=== PATIENT | male | born 1975 | race Caucasian/White ===

== ENCOUNTER 2017-11-04 00:34 | Inpatient (IN) | payer OTHER ==
[2017-11-04 02:04] LABS: HEMATOCRIT 40.6 % (42.0-52.0); HEMOGLOBIN 13.9 g/dl (13.5-17.5); MEAN CORPUSCULAR HEMOGLOBIN 32.3 pg (27.0-33.0); MEAN CORPUSCULAR HGB CONC 34.2 g/dl (32.0-36.5); MEAN CORPUSCULAR VOLUME 94.4 fl (80.0-96.0); PLATELET COUNT, AUTOMATED 447 10^3/uL (150-450)
[2017-11-04 02:39] LABS: ALBUMIN 2.9 GM/DL (3.2-5.2); ALKALINE PHOSPHATASE 70 U/L (45-117); ALT/SGPT 28 U/L (12-78); ANION GAP 10 MEQ/L (8-16); AST/SGOT 16 U/L (7-37); BILIRUBIN,DIRECT < 0.1 MG/DL (0.0-0.2); BILIRUBIN,TOTAL 0.1 MG/DL (0.2-1.0); BLOOD UREA NITROGEN 8 MG/DL (7-18); CALCIUM LEVEL 8.1 MG/DL (8.5-10.1); CARBON DIOXIDE LEVEL 26 MEQ/L (21-32); CHLORIDE LEVEL 103 MEQ/L (98-107); CREATININE FOR GFR 0.64 MG/DL (0.70-1.30); ETHYL ALCOHOL (ETHANOL) 0.397 % (0.000-0.010); GLOMERULAR FILTRATION RATE > 60.0 (>60); GLUCOSE, FASTING 144 MG/DL (70-100); SALICYLATE LEVEL 3.5 MG/DL (5.0-30.0); SODIUM LEVEL 139 MEQ/L (136-145); THYROID STIMULATING HORMONE 0.684 uIU/ML (0.358-3.740); TOTAL PROTEIN 7.7 GM/DL (6.4-8.2)
[2017-11-04 02:58] LABS: ACETAMINOPHEN LEVEL < 2.0 UG/ML (10.0-30.0)
[2017-11-04] MEDS: OXAZEPAM 15 MG CAP PO (03:24)
[2017-11-04 03:26] LABS: AMPHETAMINES LEVEL URINE NEGATIVE (NEGATIVE); BARBITURATES URINE NEGATIVE (NEGATIVE); BENZODIAZEPINES URINE NEGATIVE (NEGATIVE); CANNABINOIDS URINE NEGATIVE (NEGATIVE); COCAINE METABOLITE URINE NEGATIVE (NEGATIVE); METHADONE URINE NEGATIVE (NEGATIVE); OPIATES URINE NEGATIVE (NEGATIVE); PHENCYCLIDINE URINE NEGATIVE (NEGATIVE)
[2017-11-04 08:21] LABS: ERYTHROCYTE SEDIMENTATION RATE 67 mm/hr (0-15)
[2017-11-04] MEDS ORDERED: ONDANSETRON 4MG/2ML VIAL (J2405) IV (08:45)
[2017-11-04 09:51] LABS: INR 0.98; PROTHROMBIN TIME 13.1 SECONDS (12.4-14.5)
[2017-11-04 10:10] LABS: ESTIMATED AVERAGE GLUCOSE 140 MG/DL (60-110); HEMOGLOBIN A1c 6.5 %
[2017-11-04] MEDS: cefTRIAXone SOD 2 GM in D5W MINI-BAG PLUS 50 ML IV (10:45)
[2017-11-04] MEDS: VANCOMYCIN HCL 1,000 MG, VIAL MATE ADAPTER 1 EACH in D5W 250 ML IV ×3 (11:24→20:46)
[2017-11-04] MEDS ORDERED: GLUCAGON FOR INJ 1 MG VIAL (J1610) SC (11:30)
[2017-11-04] MEDS ORDERED: GLUCOSE 4 GM CHEW TABLET PO (11:30)
[2017-11-04] MEDS ORDERED: DEXTROSE 50% 50 ML SYRINGE IV (11:30)
[2017-11-04 12:14] LABS: BEDSIDE GLUCOSE 242 MG/DL (70-105)
[2017-11-04] MEDS: FOLIC ACID 1 MG TAB PO (12:42)
[2017-11-04] MEDS: OXAZEPAM 10 MG CAP PO ×3 (12:42→20:46)
[2017-11-04] MEDS: THIAMINE 100 MG TAB PO (12:42)
[2017-11-04] MEDS: HumaLOG INSULIN (NovoLOG) PER UNIT SC ×2 (12:57→17:24)
[2017-11-04] MEDS: PIPERACILLIN/TAZOBACTAM SOD 3.375 GM in D5W MINI-BAG PLUS 50 ML IV ×2 (13:06→18:38)
[2017-11-04] MEDS: SENOKOT S TAB PO ×2 (13:19→20:47)
[2017-11-04] MEDS: ENOXAPARIN 40 MG/0.4 ML SYRINGE (J1650) SC (13:20)
[2017-11-04] MEDS: NICOTINE 14 MG/24 HR TRANSDERMAL TD (13:20)
[2017-11-04] MEDS: MULTIVITAMINS/MINERALS THERAP 1 TAB PO (13:20)
[2017-11-04] MEDS ORDERED: diphenhydrAMINE INJ 50MG/ML VIAL (J1200) IM (14:15)
[2017-11-04] MEDS: ACETAMINOPHEN 500 MG TAB PO (15:48)
[2017-11-04 16:58] LABS: BEDSIDE GLUCOSE 181 MG/DL (70-105)
[2017-11-04 20:07] LABS: BEDSIDE GLUCOSE 186 MG/DL (70-105)
[2017-11-04] MEDS: LEVEMIR (INSULIN DETEMIR) 1 UNITS/0.01ML SC (20:47)
[2017-11-05] MEDS: PIPERACILLIN/TAZOBACTAM SOD 3.375 GM in D5W MINI-BAG PLUS 50 ML IV ×4 (00:36→20:14)
[2017-11-05] MEDS: VANCOMYCIN HCL 1,000 MG, VIAL MATE ADAPTER 1 EACH in D5W 250 ML IV ×4 (04:53→21:21)
[2017-11-05 06:24] LABS: BEDSIDE GLUCOSE 137 MG/DL (70-105)
[2017-11-05] MEDS: HumaLOG INSULIN (NovoLOG) PER UNIT SC ×3 (07:30→17:30)
[2017-11-05 08:00] LABS: BASO # 0.1 10^3/uL (0.0-0.2); BASO % 0.6 % (0.0-1.0); EOS # 0.1 10^3/uL (0.0-0.50); EOS % 1.5 % (0.0-3.0); HEMATOCRIT 38.5 % (42.0-52.0); IMMATURE GRANULOCYTE % 0.3 % (0-3.0); LYMPH # 1.8 10^3/uL (1.5-4.5); LYMPH % 19.8 % (24.0-44.0); MEAN CORPUSCULAR HEMOGLOBIN 32.4 pg (27.0-33.0); MEAN CORPUSCULAR HGB CONC 33.8 g/dl (32.0-36.5); MONO # 0.9 10^3/uL (0.0-0.8); MONO % 9.4 % (0.0-5.0); NEUTROPHILS # 6.2 10^3/uL (1.8-7.7); NEUTROPHILS % 68.4 % (36.0-66.0); PLATELET COUNT, AUTOMATED 433 10^3/uL (150-450); RED BLOOD COUNT 4.01 10^6/uL (4.30-6.10); WHITE BLOOD COUNT 9.1 10^3/uL (4.0-10.0)
[2017-11-05 08:21] LABS: ANION GAP 7 MEQ/L (8-16); BLOOD UREA NITROGEN 9 MG/DL (7-18); CALCIUM LEVEL 8.4 MG/DL (8.5-10.1); CARBON DIOXIDE LEVEL 29 MEQ/L (21-32); CHLORIDE LEVEL 101 MEQ/L (98-107); CREATININE FOR GFR 0.74 MG/DL (0.70-1.30); GLOMERULAR FILTRATION RATE > 60.0 (>60); GLUCOSE, FASTING 136 MG/DL (70-100); POTASSIUM SERUM 3.5 MEQ/L (3.5-5.1); SODIUM LEVEL 137 MEQ/L (136-145)
[2017-11-05] MEDS: THIAMINE 100 MG TAB PO (09:02)
[2017-11-05] MEDS: OXAZEPAM 10 MG CAP PO ×3 (09:02→21:21)
[2017-11-05] MEDS: NICOTINE 14 MG/24 HR TRANSDERMAL TD (09:03)
[2017-11-05] MEDS: MULTIVITAMINS/MINERALS THERAP 1 TAB PO (09:03)
[2017-11-05] MEDS: SENOKOT S TAB PO ×2 (09:03→20:17)
[2017-11-05] MEDS: FOLIC ACID 1 MG TAB PO (09:03)
[2017-11-05 11:43] LABS: BEDSIDE GLUCOSE 179 MG/DL (70-105)
[2017-11-05 11:54] LABS: VANCOMYCIN LEVEL TROUGH 8.7 UG/ML (10.0-20.0)
[2017-11-05] MEDS: BUPIVACAINE HCL 0.5% 10 ML VIAL As Ordered (18:05)
[2017-11-05] MEDS: LIDOCAINE 1% MDV 20ML VIAL As Ordered (18:05)
[2017-11-05] MEDS ORDERED: MIDAZOLAM INJ 2 MG/2 ML VIAL (J2250) As Ordered (18:06)
[2017-11-05] MEDS ORDERED: fentaNYL 100 MCG/2 ML INJECTION (J3010) As Ordered ×2 (18:06→18:58)
[2017-11-05] MEDS ORDERED: PROPOFOL 200 MG/20 ML VIAL As Ordered ×3 (18:06→18:07)
[2017-11-05] MEDS ORDERED: PHENYLephrine HCL 500 MCG/5 ML (100MCG/ML) SYRINGE (J2370) As Ordered (18:21)
[2017-11-05] MEDS: LR 1,000 ML IV (18:49)
[2017-11-05] MEDS ORDERED: ONDANSETRON 4MG/2ML VIAL (J2405) As Ordered (18:58)
[2017-11-05] MEDS ORDERED: MEPERIDINE INJ 25 MG/ML VIAL (J2175) As Ordered (18:58)
[2017-11-05] MEDS ORDERED: PERCOCET 5MG/325MG TAB As Ordered ×2 (18:58→19:22)
[2017-11-05 19:01] LABS: BEDSIDE GLUCOSE 151 MG/DL (70-105)
[2017-11-05] MEDS: MEPERIDINE INJ 25 MG/ML VIAL (J2175) IV ×2 (19:05→19:10)
[2017-11-05] MEDS: fentaNYL 100 MCG/2 ML INJECTION (J3010) IV ×4 (19:05→19:20)
[2017-11-05] MEDS: ONDANSETRON 4MG/2ML VIAL (J2405) IV (19:05)
[2017-11-05] MEDS: PERCOCET 5MG/325MG TAB PO ×2 (19:05→19:35)
[2017-11-05] MEDS ORDERED: MORPHINE 4 MG/ML 1ML VIAL/SYRINGE (J2270) IV (19:15)
[2017-11-05] MEDS ORDERED: NALBUPHINE HCL 10 MG/ML AMP (J2300) IV (19:15)
[2017-11-05] MEDS ORDERED: METOCLOPRAMIDE INJ 10MG/2ML VIAL (J2765) IV (19:15)
[2017-11-05] MEDS ORDERED: NORCO, ANEXSIA 5/325MG TABLET (HYDROcodone/ACETAMINOPHEN) PO (19:15)
[2017-11-05] MEDS ORDERED: PROMETHAZINE INJ 25 MG/ML VIAL (J2550) IV (19:15)
[2017-11-05] MEDS ORDERED: HYDROMORPHONE HCL 0.5 MG/ 0.5 ML SYRINGE (J1170 PER 1) IV (19:15)
[2017-11-05] MEDS ORDERED: KETOROLAC 30 MG/ML VIAL (J1885) IV (19:15)
[2017-11-05] MEDS ORDERED: MORPHINE 10 MG/ML 1ML VIAL (J2270) IV (19:15)
[2017-11-05] MEDS ORDERED: diphenhydrAMINE INJ 50MG/ML VIAL (J1200) IV (19:15)
[2017-11-05] MEDS: LEVEMIR (INSULIN DETEMIR) 1 UNITS/0.01ML SC (21:21)
[2017-11-05] MEDS: VANCOMYCIN HCL 750 MG, VIAL MATE ADAPTER 1 EACH in D5W 250 ML IV (23:41)
[2017-11-06] MEDS: PIPERACILLIN/TAZOBACTAM SOD 3.375 GM in D5W MINI-BAG PLUS 50 ML IV ×4 (01:51→19:00)
[2017-11-06] MEDS: VANCOMYCIN HCL 1,000 MG, VIAL MATE ADAPTER 1 EACH in D5W 250 ML IV ×3 (04:02→20:22)
[2017-11-06] MEDS: VANCOMYCIN HCL 750 MG, VIAL MATE ADAPTER 1 EACH in D5W 250 ML IV (06:09)
[2017-11-06 07:09] LABS: HEMATOCRIT 34.6 % (42.0-52.0); HEMOGLOBIN 11.4 g/dl (13.5-17.5); MEAN CORPUSCULAR HGB CONC 32.9 g/dl (32.0-36.5); MEAN CORPUSCULAR VOLUME 97.2 fl (80.0-96.0); PLATELET COUNT, AUTOMATED 380 10^3/uL (150-450); RED BLOOD COUNT 3.56 10^6/uL (4.30-6.10); WHITE BLOOD COUNT 7.6 10^3/uL (4.0-10.0)
[2017-11-06 07:19] LABS: ANION GAP 5 MEQ/L (8-16); BLOOD UREA NITROGEN 5 MG/DL (7-18); CALCIUM LEVEL 8.4 MG/DL (8.5-10.1); CARBON DIOXIDE LEVEL 32 MEQ/L (21-32); CHLORIDE LEVEL 102 MEQ/L (98-107); CREATININE FOR GFR 0.69 MG/DL (0.70-1.30); GLOMERULAR FILTRATION RATE > 60.0 (>60); GLUCOSE, FASTING 149 MG/DL (70-100); POTASSIUM SERUM 3.9 MEQ/L (3.5-5.1); SODIUM LEVEL 139 MEQ/L (136-145)
[2017-11-06] MEDS: SENOKOT S TAB PO ×2 (09:00→20:22)
[2017-11-06] MEDS: HumaLOG INSULIN (NovoLOG) PER UNIT SC ×3 (09:43→17:02)
[2017-11-06] MEDS: ENOXAPARIN 40 MG/0.4 ML SYRINGE (J1650) SC (09:44)
[2017-11-06] MEDS: FOLIC ACID 1 MG TAB PO (09:44)
[2017-11-06] MEDS: THIAMINE 100 MG TAB PO (09:44)
[2017-11-06] MEDS: OXAZEPAM 10 MG CAP PO ×3 (09:44→20:22)
[2017-11-06] MEDS: NICOTINE 14 MG/24 HR TRANSDERMAL TD (09:44)
[2017-11-06] MEDS: MULTIVITAMINS/MINERALS THERAP 1 TAB PO (09:45)
[2017-11-06] MEDS: SANTYL OINT 30GM TOP (09:45)
[2017-11-06] MEDS: PERCOCET 5MG/325MG TAB PO ×3 (09:46→21:08)
[2017-11-06 11:01] LABS: C REACTIVE PROTEIN QUANTITATIV 4.93 MG/DL (0.00-0.30)
[2017-11-06 11:26] LABS: VANCOMYCIN LEVEL TROUGH 22.2 UG/ML (10.0-20.0)
[2017-11-06 11:35] LABS: BEDSIDE GLUCOSE 119 MG/DL (70-105)
[2017-11-06] MEDS: VANCOMYCIN HCL 500 MG in D5W MINI-BAG PLUS 100 ML IV ×2 (15:00→21:52)
[2017-11-06 16:37] LABS: BEDSIDE GLUCOSE 233 MG/DL (70-105)
[2017-11-06] MEDS: NICOTINE POLACRILEX 2 MG GUM PO ×2 (17:58→21:52)
[2017-11-06 19:39] LABS: BEDSIDE GLUCOSE 118 MG/DL (70-105)
[2017-11-06] MEDS: LEVEMIR (INSULIN DETEMIR) 1 UNITS/0.01ML SC (21:03)
[2017-11-07] MEDS: PIPERACILLIN/TAZOBACTAM SOD 3.375 GM in D5W MINI-BAG PLUS 50 ML IV ×4 (00:39→23:59)
[2017-11-07] MEDS: VANCOMYCIN HCL 1,000 MG, VIAL MATE ADAPTER 1 EACH in D5W 250 ML IV ×3 (02:35→20:25)
[2017-11-07] MEDS: VANCOMYCIN HCL 500 MG in D5W MINI-BAG PLUS 100 ML IV ×3 (04:25→22:42)
[2017-11-07] MEDS: PERCOCET 5MG/325MG TAB PO ×4 (06:29→20:26)
[2017-11-07] MEDS: NICOTINE POLACRILEX 2 MG GUM PO ×4 (06:29→20:27)
[2017-11-07 06:36] LABS: HEMATOCRIT 36.5 % (42.0-52.0); HEMOGLOBIN 12.1 g/dl (13.5-17.5); MEAN CORPUSCULAR HGB CONC 33.2 g/dl (32.0-36.5); MEAN CORPUSCULAR VOLUME 96.6 fl (80.0-96.0); PLATELET COUNT, AUTOMATED 412 10^3/uL (150-450); RED BLOOD COUNT 3.78 10^6/uL (4.30-6.10); RED CELL DISTRIBUTION WIDTH 12.1 % (11.5-14.5); WHITE BLOOD COUNT 7.8 10^3/uL (4.0-10.0)
[2017-11-07 06:52] LABS: ANION GAP 4 MEQ/L (8-16); BLOOD UREA NITROGEN 8 MG/DL (7-18); CALCIUM LEVEL 8.7 MG/DL (8.5-10.1); CARBON DIOXIDE LEVEL 31 MEQ/L (21-32); CHLORIDE LEVEL 104 MEQ/L (98-107); CREATININE FOR GFR 0.84 MG/DL (0.70-1.30); GLOMERULAR FILTRATION RATE > 60.0 (>60); GLUCOSE, FASTING 158 MG/DL (70-100); POTASSIUM SERUM 4.3 MEQ/L (3.5-5.1); SODIUM LEVEL 139 MEQ/L (136-145)
[2017-11-07] MEDS: SENOKOT S TAB PO ×2 (07:52→20:26)
[2017-11-07] MEDS: OXAZEPAM 10 MG CAP PO ×3 (07:52→20:26)
[2017-11-07] MEDS: ENOXAPARIN 40 MG/0.4 ML SYRINGE (J1650) SC (07:52)
[2017-11-07] MEDS: HumaLOG INSULIN (NovoLOG) PER UNIT SC ×4 (07:52→21:00)
[2017-11-07] MEDS: THIAMINE 100 MG TAB PO (07:53)
[2017-11-07] MEDS: FOLIC ACID 1 MG TAB PO (07:53)
[2017-11-07] MEDS: MULTIVITAMINS/MINERALS THERAP 1 TAB PO (07:53)
[2017-11-07] MEDS: ACETAMINOPHEN 500 MG TAB PO (07:56)
[2017-11-07] MEDS: SANTYL OINT 30GM TOP (10:42)
[2017-11-07 11:41] LABS: BEDSIDE GLUCOSE 133 MG/DL (70-105)
[2017-11-07] MEDS: LORazepam 2 MG TAB PO (18:42)
[2017-11-07 20:00] LABS: VANCOMYCIN LEVEL TROUGH 18.4 UG/ML (10.0-20.0)
[2017-11-07 20:17] LABS: BEDSIDE GLUCOSE 163 MG/DL (70-105)
[2017-11-07 20:20] LABS: BEDSIDE GLUCOSE 192 MG/DL (70-105)
[2017-11-07] MEDS: LEVEMIR (INSULIN DETEMIR) 1 UNITS/0.01ML SC (20:26)
[2017-11-08] MEDS: NICOTINE POLACRILEX 2 MG GUM PO ×6 (00:17→21:52)
[2017-11-08] MEDS: PERCOCET 5MG/325MG TAB PO ×4 (00:17→21:51)
[2017-11-08] MEDS: VANCOMYCIN HCL 1,000 MG, VIAL MATE ADAPTER 1 EACH in D5W 250 ML IV ×2 (04:07→11:22)
[2017-11-08] MEDS: PIPERACILLIN/TAZOBACTAM SOD 3.375 GM in D5W MINI-BAG PLUS 50 ML IV ×4 (05:15→21:52)
[2017-11-08] MEDS: VANCOMYCIN HCL 500 MG in D5W MINI-BAG PLUS 100 ML IV ×2 (06:14→12:58)
[2017-11-08 07:21] LABS: HEMATOCRIT 38.7 % (42.0-52.0); HEMOGLOBIN 12.7 g/dl (13.5-17.5); MEAN CORPUSCULAR HEMOGLOBIN 31.8 pg (27.0-33.0); MEAN CORPUSCULAR HGB CONC 32.8 g/dl (32.0-36.5); PLATELET COUNT, AUTOMATED 437 10^3/uL (150-450); RED BLOOD COUNT 3.99 10^6/uL (4.30-6.10); RED CELL DISTRIBUTION WIDTH 12.1 % (11.5-14.5); WHITE BLOOD COUNT 9.1 10^3/uL (4.0-10.0)
[2017-11-08 07:44] LABS: ANION GAP 7 MEQ/L (8-16); BLOOD UREA NITROGEN 10 MG/DL (7-18); CALCIUM LEVEL 9.1 MG/DL (8.5-10.1); CARBON DIOXIDE LEVEL 27 MEQ/L (21-32); CHLORIDE LEVEL 103 MEQ/L (98-107); CREATININE FOR GFR 0.77 MG/DL (0.70-1.30); GLOMERULAR FILTRATION RATE > 60.0 (>60); GLUCOSE, FASTING 123 MG/DL (70-100); POTASSIUM SERUM 4.1 MEQ/L (3.5-5.1); SODIUM LEVEL 137 MEQ/L (136-145)
[2017-11-08] MEDS: THIAMINE 100 MG TAB PO (08:30)
[2017-11-08] MEDS: OXAZEPAM 10 MG CAP PO ×3 (08:30→21:51)
[2017-11-08] MEDS: ENOXAPARIN 40 MG/0.4 ML SYRINGE (J1650) SC (08:30)
[2017-11-08] MEDS: HumaLOG INSULIN (NovoLOG) PER UNIT SC ×4 (08:30→21:52)
[2017-11-08] MEDS: SENOKOT S TAB PO ×2 (08:30→21:51)
[2017-11-08] MEDS: FOLIC ACID 1 MG TAB PO (08:30)
[2017-11-08] MEDS: MULTIVITAMINS/MINERALS THERAP 1 TAB PO (08:31)
[2017-11-08] MEDS: SANTYL OINT 30GM TOP (08:31)
[2017-11-08 11:34] LABS: BEDSIDE GLUCOSE 179 MG/DL (70-105)
[2017-11-08 16:36] LABS: BEDSIDE GLUCOSE 176 MG/DL (70-105)
[2017-11-08 21:43] LABS: BEDSIDE GLUCOSE 198 MG/DL (70-105)
[2017-11-08] MEDS: LEVEMIR (INSULIN DETEMIR) 1 UNITS/0.01ML SC (21:52)
[2017-11-09] MEDS: NICOTINE POLACRILEX 2 MG GUM PO ×4 (04:15→22:11)
[2017-11-09] MEDS: PIPERACILLIN/TAZOBACTAM SOD 3.375 GM in D5W MINI-BAG PLUS 50 ML IV ×4 (04:15→22:04)
[2017-11-09] MEDS: PERCOCET 5MG/325MG TAB PO ×4 (04:15→22:03)
[2017-11-09 06:48] LABS: HEMATOCRIT 36.7 % (42.0-52.0); HEMOGLOBIN 12.4 g/dl (13.5-17.5); MEAN CORPUSCULAR HEMOGLOBIN 32.8 pg (27.0-33.0); MEAN CORPUSCULAR HGB CONC 33.8 g/dl (32.0-36.5); MEAN CORPUSCULAR VOLUME 97.1 fl (80.0-96.0); PLATELET COUNT, AUTOMATED 415 10^3/uL (150-450); RED BLOOD COUNT 3.78 10^6/uL (4.30-6.10); RED CELL DISTRIBUTION WIDTH 12.5 % (11.5-14.5); WHITE BLOOD COUNT 10.5 10^3/uL (4.0-10.0)
[2017-11-09 07:05] LABS: ANION GAP 4 MEQ/L (8-16); BLOOD UREA NITROGEN 14 MG/DL (7-18); C REACTIVE PROTEIN QUANTITATIV 1.67 MG/DL (0.00-0.30); CARBON DIOXIDE LEVEL 27 MEQ/L (21-32); CHLORIDE LEVEL 105 MEQ/L (98-107); CREATININE FOR GFR 0.77 MG/DL (0.70-1.30); GLOMERULAR FILTRATION RATE > 60.0 (>60); GLUCOSE, FASTING 95 MG/DL (70-100); SODIUM LEVEL 136 MEQ/L (136-145)
[2017-11-09] MEDS: HumaLOG INSULIN (NovoLOG) PER UNIT SC ×4 (07:22→21:00)
[2017-11-09] MEDS: OXAZEPAM 10 MG CAP PO ×2 (09:00→22:02)
[2017-11-09] MEDS: SENOKOT S TAB PO (09:00)
[2017-11-09] MEDS: FOLIC ACID 1 MG TAB PO (10:53)
[2017-11-09] MEDS: MULTIVITAMINS/MINERALS THERAP 1 TAB PO (10:53)
[2017-11-09] MEDS: THIAMINE 100 MG TAB PO (10:54)
[2017-11-09] MEDS: ENOXAPARIN 40 MG/0.4 ML SYRINGE (J1650) SC (10:57)
[2017-11-09] MEDS: SANTYL OINT 30GM TOP (10:58)
[2017-11-09 11:26] LABS: BEDSIDE GLUCOSE 153 MG/DL (70-105)
[2017-11-09 16:53] LABS: BEDSIDE GLUCOSE 231 MG/DL (70-105)
[2017-11-09 20:53] LABS: BEDSIDE GLUCOSE 145 MG/DL (70-105)
[2017-11-09] MEDS: LEVEMIR (INSULIN DETEMIR) 1 UNITS/0.01ML SC (22:03)
[2017-11-10] MEDS: PIPERACILLIN/TAZOBACTAM SOD 3.375 GM in D5W MINI-BAG PLUS 50 ML IV ×4 (04:57→21:07)
[2017-11-10 05:58] LABS: HEMATOCRIT 37.3 % (42.0-52.0); HEMOGLOBIN 12.3 g/dl (13.5-17.5); MEAN CORPUSCULAR HEMOGLOBIN 31.9 pg (27.0-33.0); MEAN CORPUSCULAR VOLUME 96.6 fl (80.0-96.0); PLATELET COUNT, AUTOMATED 437 10^3/uL (150-450); RED BLOOD COUNT 3.86 10^6/uL (4.30-6.10); RED CELL DISTRIBUTION WIDTH 12.3 % (11.5-14.5); WHITE BLOOD COUNT 9.3 10^3/uL (4.0-10.0)
[2017-11-10 06:20] LABS: ANION GAP 6 MEQ/L (8-16); BLOOD UREA NITROGEN 14 MG/DL (7-18); CALCIUM LEVEL 9.7 MG/DL (8.5-10.1); CARBON DIOXIDE LEVEL 28 MEQ/L (21-32); CHLORIDE LEVEL 105 MEQ/L (98-107); CREATININE FOR GFR 0.75 MG/DL (0.70-1.30); GLOMERULAR FILTRATION RATE > 60.0 (>60); GLUCOSE, FASTING 113 MG/DL (70-100); SODIUM LEVEL 139 MEQ/L (136-145)
[2017-11-10] MEDS: HumaLOG INSULIN (NovoLOG) PER UNIT SC ×4 (07:30→21:00)
[2017-11-10] MEDS ORDERED: LIDOCAINE 2% INJ 100 MG/5 ML SDV (FOR ANES.) As Ordered ×2 (07:51→07:53)
[2017-11-10] MEDS ORDERED: PROPOFOL 200 MG/20 ML VIAL As Ordered ×2 (07:51→08:43)
[2017-11-10] MEDS ORDERED: fentaNYL 100 MCG/2 ML INJECTION (J3010) As Ordered (07:51)
[2017-11-10] MEDS ORDERED: MIDAZOLAM INJ 2 MG/2 ML VIAL (J2250) As Ordered (07:51)
[2017-11-10] MEDS: LIDOCAINE 1% MDV 20ML VIAL As Ordered (08:50)
[2017-11-10] MEDS: BUPIVACAINE HCL 0.5% 10 ML VIAL As Ordered (08:50)
[2017-11-10] MEDS ORDERED: ONDANSETRON 4MG/2ML VIAL (J2405) As Ordered (09:22)
[2017-11-10] MEDS ORDERED: ZOSYN 3.375 GM VIAL (J2543) As Ordered (09:25)
[2017-11-10] MEDS: dexameTHASONE 4 MG/ML 1ML VIAL (J1100) As Ordered (09:26)
[2017-11-10] MEDS ORDERED: PERCOCET 5MG/325MG TAB As Ordered ×2 (09:59→10:20)
[2017-11-10] MEDS ORDERED: ONDANSETRON 4MG/2ML VIAL (J2405) IV (10:00)
[2017-11-10 10:03] LABS: BEDSIDE GLUCOSE 116 MG/DL (70-105)
[2017-11-10] MEDS: PERCOCET 5MG/325MG TAB PO ×6 (10:09→21:09)
[2017-11-10] MEDS: NICOTINE POLACRILEX 2 MG GUM PO ×3 (11:05→18:44)
[2017-11-10 11:46] LABS: BEDSIDE GLUCOSE 114 MG/DL (70-105)
[2017-11-10] MEDS: FOLIC ACID 1 MG TAB PO (12:19)
[2017-11-10] MEDS: SANTYL OINT 30GM TOP (12:19)
[2017-11-10] MEDS: THIAMINE 100 MG TAB PO (12:19)
[2017-11-10] MEDS: MULTIVITAMINS/MINERALS THERAP 1 TAB PO (12:19)
[2017-11-10] MEDS: LACTIC ACID 12% LOTION 225 GM BTL EXT (12:20)
[2017-11-10] MEDS ORDERED: OXAZEPAM 10 MG CAP As Ordered (15:58)
[2017-11-10] MEDS: OXAZEPAM 10 MG CAP PO (16:21)
[2017-11-10 17:11] LABS: BEDSIDE GLUCOSE 181 MG/DL (70-105)
[2017-11-10] MEDS: AQUAPHOR **100GM** OINT TOP ×2 (18:12→21:08)
[2017-11-10 20:27] LABS: BEDSIDE GLUCOSE 126 MG/DL (70-105)
[2017-11-10] MEDS: LEVEMIR (INSULIN DETEMIR) 1 UNITS/0.01ML SC (21:07)
[2017-11-11] MEDS: NICOTINE POLACRILEX 2 MG GUM PO ×3 (01:00→11:09)
[2017-11-11] MEDS: PERCOCET 5MG/325MG TAB PO ×3 (04:59→15:22)
[2017-11-11] MEDS: PIPERACILLIN/TAZOBACTAM SOD 3.375 GM in D5W MINI-BAG PLUS 50 ML IV (04:59)
[2017-11-11 06:53] LABS: HEMATOCRIT 34.5 % (42.0-52.0); HEMOGLOBIN 11.5 g/dl (13.5-17.5); MEAN CORPUSCULAR HEMOGLOBIN 32.4 pg (27.0-33.0); MEAN CORPUSCULAR HGB CONC 33.3 g/dl (32.0-36.5); MEAN CORPUSCULAR VOLUME 97.2 fl (80.0-96.0); PLATELET COUNT, AUTOMATED 393 10^3/uL (150-450); RED BLOOD COUNT 3.55 10^6/uL (4.30-6.10); RED CELL DISTRIBUTION WIDTH 12.6 % (11.5-14.5); WHITE BLOOD COUNT 9.3 10^3/uL (4.0-10.0)
[2017-11-11 07:07] LABS: ANION GAP 8 MEQ/L (8-16); BLOOD UREA NITROGEN 15 MG/DL (7-18); CALCIUM LEVEL 8.7 MG/DL (8.5-10.1); CARBON DIOXIDE LEVEL 27 MEQ/L (21-32); CHLORIDE LEVEL 103 MEQ/L (98-107); CREATININE FOR GFR 0.89 MG/DL (0.70-1.30); GLOMERULAR FILTRATION RATE > 60.0 (>60); GLUCOSE, FASTING 109 MG/DL (70-100); POTASSIUM SERUM 3.8 MEQ/L (3.5-5.1); SODIUM LEVEL 138 MEQ/L (136-145)
[2017-11-11] MEDS: HumaLOG INSULIN (NovoLOG) PER UNIT SC ×2 (08:07→12:28)
[2017-11-11] MEDS: THIAMINE 100 MG TAB PO (08:07)
[2017-11-11] MEDS: FOLIC ACID 1 MG TAB PO (08:07)
[2017-11-11] MEDS: MULTIVITAMINS/MINERALS THERAP 1 TAB PO (08:07)
[2017-11-11] MEDS: AUGMENTIN 875 MG TAB PO ×2 (08:07→15:21)
[2017-11-11] MEDS: LACTIC ACID 12% LOTION 225 GM BTL EXT (08:08)
[2017-11-11] MEDS: ENOXAPARIN 40 MG/0.4 ML SYRINGE (J1650) SC (08:08)
[2017-11-11] MEDS: AQUAPHOR **100GM** OINT TOP (08:08)
[2017-11-11] MEDS: SANTYL OINT 30GM TOP (08:09)
[2017-11-11 08:34] LABS: C REACTIVE PROTEIN QUANTITATIV 1.37 MG/DL (0.00-0.30)
[2017-11-11 11:55] LABS: BEDSIDE GLUCOSE 172 MG/DL (70-105)
== END 2017-11-11 15:30 | disposition home or self-care (01) | DRG 314 ==
LOC: M ED 00:34 → M ED INP 08:44 → M MS5PR 14:44
PROC: 0Y6P0Z0 Detachment at Right 1st Toe, Complete, Open Approach (ICD-10-PCS; principal; 2017-11-05 16:42)
PROC: 0JDR0ZZ Extraction of Left Foot Subcutaneous Tissue and Fascia, Open Approach (ICD-10-PCS; 2017-11-05 16:42)
PROC: 0HBMXZZ Excision of Right Foot Skin, External Approach (ICD-10-PCS; 2017-11-05 17:56)
DX: E11.69 Type 2 diabetes mellitus with other specified complication (principal); T87.44 Infection of amputation stump, left lower extremity; E11.40 Type 2 diabetes mellitus with diabetic neuropathy, unspecified; M86.171 Other acute osteomyelitis, right ankle and foot; E55.9 Vitamin D deficiency, unspecified; L97.529 Non-pressure chronic ulcer of other part of left foot with unspecified severity; F10.229 Alcohol dependence with intoxication, unspecified; F17.210 Nicotine dependence, cigarettes, uncomplicated; L02.611 Cutaneous abscess of right foot; B96.4 Proteus (mirabilis) (morganii) as the cause of diseases classified elsewhere; R45.850 Homicidal ideations; B95.61 Methicillin susceptible Staphylococcus aureus infection as the cause of diseases classified elsewhere; B95.1 Streptococcus, group B, as the cause of diseases classified elsewhere; E11.621 Type 2 diabetes mellitus with foot ulcer; Z91.19 Patient's noncompliance with other medical treatment and regimen; Z79.4 Long term (current) use of insulin

== ENCOUNTER 2019-03-21 02:23 | Inpatient (IN) | payer OTHER ==
[~2019-03-21] VITALS: Ht 180.3 cm; Wt 102.3 kg
[~2019-03-21 02:23] MED LIST: AMOX875T2 PO; Amoxicillin/Clavulanate Potas PO; FLAG250T PO; IBUP1TAB6 PO; IBUPOTC PO; INSUDET SC; INSUHUMDS SC; LEVE1INJ5 SC; METF500T13 PO; PERCOCET PO
[2019-03-21 03:02] LABS: BASO % 0.3 % (0.0-1.0); EOS % 0.4 % (0.0-3.0); HEMATOCRIT 40.2 % (42.0-52.0); HEMOGLOBIN 13.4 g/dl (13.5-17.5); LYMPH # 0.7 10^3/uL (1.5-5.0); LYMPH % 10.4 % (24.0-44.0); MEAN CORPUSCULAR HEMOGLOBIN 34.7 pg (27.0-33.0); MEAN CORPUSCULAR HGB CONC 33.3 g/dl (32.0-36.5); MEAN CORPUSCULAR VOLUME 104.1 fl (80.0-96.0); MONO # 0.9 10^3/uL (0.0-0.8); MONO % 12.4 % (0.0-5.0); NEUTROPHILS # 5.4 10^3/uL (1.5-8.5); NEUTROPHILS % 76.4 % (36.0-66.0); PLATELET COUNT, AUTOMATED 192 10^3/uL (150-450); RED BLOOD COUNT 3.86 10^6/uL (4.30-6.10); WHITE BLOOD COUNT 7.1 10^3/uL (4.0-10.0)
[2019-03-21 03:35] LABS: AMPHETAMINES LEVEL URINE NEGATIVE (NEGATIVE); BARBITURATES URINE NEGATIVE (NEGATIVE); BENZODIAZEPINES URINE NEGATIVE (NEGATIVE); CANNABINOIDS URINE POSITIVE (NEGATIVE); COCAINE METABOLITE URINE NEGATIVE (NEGATIVE); METHADONE URINE NEGATIVE (NEGATIVE); OPIATES URINE NEGATIVE (NEGATIVE); PHENCYCLIDINE URINE NEGATIVE (NEGATIVE)
[2019-03-21 04:01] LABS: ACETAMINOPHEN LEVEL < 2.0 UG/ML (10.0-30.0); ALBUMIN 3.4 GM/DL (3.2-5.2); ALT/SGPT 104 U/L (12-78); BILIRUBIN,DIRECT 0.1 MG/DL (0.0-0.2); BILIRUBIN,TOTAL 0.5 MG/DL (0.2-1.0); BLOOD UREA NITROGEN 18 MG/DL (7-18); CARBON DIOXIDE LEVEL 26 MEQ/L (21-32); CHLORIDE LEVEL 104 MEQ/L (98-107); CPK CREATINE PHOSPHOKINASE 125 U/L (39-308); CREATININE FOR GFR 0.96 MG/DL (0.70-1.30); ETHYL ALCOHOL (ETHANOL) < 0.003 % (0.000-0.010); GLOMERULAR FILTRATION RATE > 60.0 (>60); GLUCOSE, FASTING 160 MG/DL (70-100); POTASSIUM SERUM 3.7 MEQ/L (3.5-5.1); SALICYLATE LEVEL 2.7 MG/DL (5.0-30.0); SODIUM LEVEL 138 MEQ/L (136-145); TOTAL PROTEIN 7.4 GM/DL (6.4-8.2)
--- NOTE | 2019-03-21 06:22 | REPVR ---
PROCEDURE INFORMATION: Exam: CT Head Without Contrast Exam date and time: 03/21/2019 5:20 AM Clinical history: 43 years old, male; Visual disturbance; Additional info: Hallucinations TECHNIQUE: Imaging protocol: Computed tomography of the head without contrast. Radiation optimization: All CT scans at this facility use at least one of these dose optimization techniques: automated exposure control; mA and/or kV adjustment per patient size (includes targeted exams where dose is matched to clinical indication); or iterative reconstruction. COMPARISON: No relevant prior studies available. FINDINGS: Brain: No evidence of acute intracranial hemorrhage. No acute parenchymal edema. Ventricles: No ventriculomegaly. Bones/joints: No acute fracture. Sinuses: No acute process. Mastoid air cells: Unremarkable as visualized. No mastoid effusion. Soft tissues: No acute findings. IMPRESSION: No acute intracranial process. Electronically signed by: Benny Antoine On 03/21/2019 06:22:03 AM
[2019-03-21] MEDS ORDERED: LORazepam 2 MG/ML VIAL (J2060) IV STA (07:03)
[2019-03-21] MEDS ORDERED: MULTIVITAMIN -ADULT INJECTION 10 ML, THIAMINE INJection 100 MG, FOLIC ACID 1 MG in NS 1... IV ONE (07:15)
--- NOTE | 2019-03-21 08:12 | REP ---
Clinical: Altered mental status . Comparison: None . Findings: The mediastinum and cardiac silhouette are stable and within normal limits for portable technique. The lung trevizo are clear without acute consolidation, effusion, or pneumothorax. Skeletal structures are intact. Impression: No acute cardiopulmonary process appreciated. Electronically Signed by David Youngblood MD 03/21/2019 08:03 A
[2019-03-21] MEDS ORDERED: INSUDET SC (08:34)
[2019-03-21] MEDS ORDERED: NICO2GUM MT (08:34)
[2019-03-21] MEDS ORDERED: TRAM50TA2 PO (08:34)
[2019-03-21] MEDS ORDERED: NICO1PAT15 TOP (08:34)
[2019-03-21] MEDS ORDERED: VITA-144 PO (08:34)
[2019-03-21] MEDS ORDERED: NOVOINJ3 SC (08:34)
[2019-03-21] MEDS ORDERED: CILO50TA PO (08:34)
[2019-03-21] MEDS ORDERED: GLUCOSE 4 GM CHEW TABLET PO PRN (09:00)
[2019-03-21] MEDS ORDERED: DEXTROSE 50% 50 ML SYRINGE IV PRN (09:00)
[2019-03-21] MEDS ORDERED: FOLIC ACID 1 MG TAB PO SCH (09:00)
[2019-03-21] MEDS ORDERED: GLUCAGON FOR INJ 1 MG VIAL (J1610) SC PRN (09:00)
[2019-03-21] MEDS ORDERED: MULTIVITAMINS/MINERALS THERAP 1 TAB PO SCH (09:00)
--- NOTE | 2019-03-21 10:25 | ECGEPIP ---
[facility] - ED Test Date: 2019-03-21 Pat Name: CHEIKH TORO Department: Room: - Gender: Male Ct Technician: GIORGIO : 1975 Requested By: ADRIAN Bustamante Order Number: [id number] Reading MD: Liana Muse Measurements Intervals Taft Rate: 107 P: 12 MT: 163 QRS: -23 QRSD: 97 T: 8 QT: 331 QTc: 443 Interpretive Statements SINUS TACHYCARDIA BORDERLINE LEFT AXIS DEVIATION ABNORMAL RHYTHM ECG NSTTW abnormalities PRWP NO PRIOR Electronically Signed on 03-21-2019 10:24:56 EDT by Liana Muse
--- NOTE | 2019-03-21 10:49 | REP ---
ULTRASOUND ABDOMEN: Real-time sonographic evaluation of the abdomen performed. The study is limited due to patient body habitus, bowel gas and limitations with patient positioning. The gallbladder and the common bile duct could not be visualized. There is no definite intrahepatic biliary dilatation. There is diffuse increased echotexture of the liver suggesting diffuse fibrofatty infiltration. No gross mass is seen in the visualized portions of the liver. Pancreas cannot be seen due to overlying bowel gas. The spleen is normal in size with a length of 9.4 cm with no definite intrinsic abnormality. The kidneys appear normal in size and echotexture, right kidney measuring 12.9 x 6.9 x 6.4 cm and left kidney 12.1 x 5.1 x 5.7 cm. Visualized portions of the abdominal aorta is normal in caliber, proximally measuring 1.6 cm in maximum AP dimension and distally 1.8 cm. No definite ascites is seen. IMPRESSION: Extremely limited exam. Gallbladder and common bile duct could not be visualized. There does appear to be diffuse fibrofatty infiltration of the liver. No definite ascites. Electronically Signed by Remington Aaron MD 03/22/2019 11:43 A
[2019-03-21 11:10] VITALS: BP 154/92
[2019-03-21 11:30] VITALS: BP 154/92
[2019-03-21] MEDS: THIAMINE 100 MG TAB PO SCH ×2 (13:10→20:37)
[2019-03-21] MEDS: ENOXAPARIN 40 MG/0.4 ML SYRINGE (J1650) SC SCH (13:11)
[2019-03-21] MEDS: HumaLOG INSULIN (NovoLOG) PER UNIT SC SCH ×3 (13:12→20:37)
[2019-03-21 13:40] LABS: ALBUMIN 3.1 GM/DL (3.2-5.2); BILIRUBIN,DIRECT 0.1 MG/DL (0.0-0.2); BILIRUBIN,TOTAL 0.5 MG/DL (0.2-1.0); TOTAL PROTEIN 7.3 GM/DL (6.4-8.2)
[2019-03-21] MEDS: CILOSTAZOL 100 MG TAB (PLETAL) PO SCH (17:30)
--- NOTE | 2019-03-21 18:10 | HPEPDOC ---
General Date of Admission Mar 21, 2019 at 08:47 Date of Service: Mar 21, 2019 Chief Complaint The patient is a 43-year-old male admitted with a reason for visit of Delirium. 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 His friend said he was having "LSD" like symptoms. He says he never did LSD and thinks someone must have put LSD / speed in his drink. He was very frightened as he continued to hallucinate so did not drink any more. He then saw someone jumping off the roof . heard a thump and thought it was his friend who jumped of the roof so called the "911". EMS and [facility] arrived at his place and there was nothing. It was determined that he was hallucinating and he was brought to the ED. After about 6 hours in the ED he still continued to have hallucinations, seen talking to the light fixtures, seeing people standing at the foot of his bed when there is no one. talking about seeing the " mathew of " at the foot of his bed. Pateint was admitted for hallucination. He was also noted to have chronic non healing ulcer on left foot below the left amputated hallux. He says he is scheduled for surgery for that later this week. Home Medications Scheduled Cholecalciferol (Vitamin D3) (Vitamin D3) 1,000 Unit Tablet, 1,000 UNIT PO Q2D, (Reported) Cilostazol (Cilostazol) 50 Mg Tablet, 50 MG PO BID, (Reported) Insulin Aspart (Novolog Flexpen) 100 Unit/1 Ml Insuln.pen, 1 DOSE SC AC, (Reported) PER SLIDING SCALE Insulin Detemir (Levemir) 100 Unit/1 Ml Vial, 20 UNITS SC QHS, (Reported) Metformin HCl (Metformin HCl) 500 Mg Tablet, 500 MG PO DAILY, (Reported) PRESCRIBED BID, PATIENT HAS ONLY BEEN TAKING DAILY DUE TO DIARRHEA Nicotine (Nicotine Patch) 21 Mg/24 Hr Patch.td24, 21 MG TOP DAILY, (Reported) HAS NOT STARTED - WAITING FOR RX FROM [place] Scheduled PRN Nicotine Polacrilex (Nicotine Gum) 2 Mg Gum, 2 MG MT Q2H PRN for SMOKING CESSATION, (Reported) Tramadol HCl (Tramadol HCl) 50 Mg Tablet, 50 MG PO BID PRN for PAIN, (Reported) Allergies Coded Allergies: No Known Allergies (Unverified , 01/24/19) Past Medical History Medical History Diabetes mellitus with Neuropathy PAD chronic non healing left base of hallux ulcer Vitamin D deficiency. Alcohol abuse. Surgical History Right and left hallux amputation Family History The patient is adopted. Does not know his biological family's health. Social History * Smoker: current smoker Alcohol: heavy (daily 6 to 8 beers) Drugs: marijuana A-FIB/CHADSVASC A-FIB History Current/History of A-Fib/PAF?: No Review of Systems Constitutional: Denies: Chills, Fever, Night Sweats Eyes: Denies: Pain, Vision change ENT: Denies: Head Aches, Ear Pain, Dysphagia Skin: Reports: Other (foot ulcer) Pulmonary: Reports: Cough (chronic); Denies: Dyspnea Cardiovascular: Denies: Chest Pain, Palpitations, Orthopnea, Paroxysmal Noc. Dyspnea, Lt Headedness Gastrointestinal: Denies: Nausea, Vomiting, Abdominal Pain, Diarrhea Genitourinary: Denies: Dysuria, Frequency, Incontinence, Retention Hematologic: Denies: Bruising, Bleeding Excessively Musculoskeletal: Denies: Neck Pain, Joint Pain, Muscle Pain, Spasms Physical Examination General Exam: Positive: Alert, Cooperative, No Acute Distress Eye Exam: Positive: PERRLA, Conjunctiva & lids normal, EOMI; Negative: Sclera icteric ENT Exam: Positive: Atraumatic, Mucous membr. moist/pink, Pharynx Normal Neck Exam: Positive: Supple; Negative: JVD, thyromegaly Chest Exam: Positive: Clear to auscultation, Normal air movement; Negative: Rales, Rhonchi, Wheezing, Diminished, Other Heart Exam: Positive: Rate Normal, Regular Rhythm, Normal S1, Normal S2; Negative: Murmurs, Rubs Telemetry: Positive: No significant arrhythmia Abdomen Exam: Positive: Normal bowel sounds, Soft; Negative: Tenderness, Hepatospenomegaly Extremity Exam: Positive: Edema Skin Exam: Positive: Lesion (chronic ulcer in tatianna ball of the left foot about 4 cm x 4 cm), Other skin issue (chronic stasis dermatitis on both the legs. ) Neuro Exam: Positive: Normal Speech, Strength at 5/5 X4 ext Psych Exam: Positive: Oriented x 3, Other (hallucinations. ) Vital Signs Vital Signs Date Time Temp Pulse Resp B/P (MAP) Pulse Ox O2 Delivery O2 Flow Rate FiO2 03/21/19 11:30 94 154/92 03/21/19 11:10 98.8 16 97 Room Air Laboratory Data Labs 24H Laboratory Tests 2 03/21/19 02:45: Bedside Glucose (Misc Panel) 191H 03/21/19 02:52: Immature Granulocyte % (Auto) 0.1, Neutrophils (%) (Auto) 76.4H, Lymphocytes (%) (Auto) 10.4L, Monocytes (%) (Auto) 12.4H, Eosinophils (%) (Auto) 0.4, Basophils (%) (Auto) 0.3, Neutrophils # (Auto) 5.4, Lymphocytes # (Auto) 0.7L, Monocytes # (Auto) 0.9H, Eosinophils # (Auto) 0.0, Basophils # (Auto) 0.0, Nucleated Red Blood Cells % (auto) 0.0, Anion Gap 8, Glomerular Filtration Rate > 60.0, Calcium Level 9.0, Total Bilirubin 0.5, Direct Bilirubin 0.1, Aspartate Amino Transf (AST/SGOT) 65H, Alanine Aminotransferase (ALT/SGPT) 104H, Alkaline Phosphatase 65, Total Creatine Kinase 125, Total Protein 7.4, Albumin 3.4, Albumin/Globulin Ratio 0.85L, Thyroid Stimulating Hormone (TSH) 1.910, Salicylates Level 2.7L, Urine Opiates Screen NEGATIVE, Urine Methadone Screen NEGATIVE, Acetaminophen Level < 2.0L, Urine Barbiturates Screen NEGATIVE, Urine Phencyclidine Screen NEGATIVE, Urine Amphetamines Screen NEGATIVE, Urine Benzodiazepines Screen NEGATIVE, Urine Cocaine Metabolite Screen NEGATIVE, Urine Cannabinoids Screen POSITIVEH, Ethyl Alcohol Level < 0.003 03/21/19 10:10: Lactic Acid Level 0.8 03/21/19 11:41: Bedside Glucose (Misc Panel) 202H 03/21/19 13:02: Total Bilirubin 0.5, Direct Bilirubin 0.1, Aspartate Amino Transf (AST/SGOT) 83H, Alanine Aminotransferase (ALT/SGPT) 110H, Alkaline Phosphatase 58, Total Protein 7.3, Albumin 3.1L, Albumin/Globulin Ratio 0.74L CBC/BMP Laboratory Tests 03/21/19 02:52 Assessment/Plan 43 year old male with PMH of Diabetes with neuropathy, peripheral vascular disease, 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 His friend said he was having "LSD" like symptoms. He says he never did LSD and thinks someone must have put LSD / speed in his drink. He was very frightened as he continued to hallucinate so did not drink any more. He then saw someone jumping off the roof . heard a thump and thought it was his friend who jumped of the roof so called the "911". EMS and [facility] arrived at his place and there was nothing. It was determined that he was hallucinating and he was brought to the ED. After about 6 hours in the ED he still continued to have hallucinations, seen talking to the light fixtures, seeing people standing at the foot of his bed when there is no one. talking about seeing the " mathew of " at the foot of his bed. Patient was admitted for hallucination. Unknown drug intake. given by friends in drink U tox positive for only cannabis. Poison control contacted advised to monitor LFTs till they are coming down Transaminitis due to drug vs chronic alcohol abuse will monitor LFTS acetaminophen level not elevated. Hallucinations due to acute delirium due to drug vs primary psych problem as per patient he often hears voices and sees people that he has known who are not there for the past 3 years it is much more severe since yesterday. If no improvement will consult psych. Alcohol abuse will place on CIWA protocol thiamine and folate. Diabetes Levemir and lispro FS as per sliding scale Peripheral arterial disease continue cilastazole Chronic foot ulcer nonhealing wound care nurse follow up with Dr Varela as outpatient. planned for surgery later this week. Plan / VTE VTE Prophylaxis Ordered?: Yes JAGRUTI WRAY MD Mar 21, 2019 16:49
[2019-03-21 18:50] LABS: ALBUMIN 3.3 GM/DL (3.2-5.2); BILIRUBIN,DIRECT 0.2 MG/DL (0.0-0.2); BILIRUBIN,TOTAL 0.7 MG/DL (0.2-1.0); TOTAL PROTEIN 7.6 GM/DL (6.4-8.2)
[2019-03-21 20:21] VITALS: BP 159/96
[2019-03-21] MEDS: LORazepam 2 MG TAB PO PRN ×2 (20:37→22:04)
[2019-03-21] MEDS: LEVEMIR (INSULIN DETEMIR) 1 UNITS/0.01ML SC SCH (20:42)
[2019-03-21] MEDS: NICOTINE POLACRILEX 2 MG GUM PO PRN (21:20)
[2019-03-21 21:43] VITALS: BP 148/92
[2019-03-21 22:00] VITALS: BP 148/88
[2019-03-21 23:04] VITALS: BP 138/93
[2019-03-22] VITALS (10 sets, daily range): BP systolic 120–150; BP diastolic 81–100
[2019-03-22] MEDS: LORazepam 2 MG TAB PO PRN ×2 (04:25→06:43)
[2019-03-22 06:34] LABS: BASO % 0.5 % (0.0-1.0); EOS # 0.1 10^3/uL (0.0-0.5); EOS % 1.4 % (0.0-3.0); HEMATOCRIT 37.6 % (42.0-52.0); HEMOGLOBIN 12.6 g/dl (13.5-17.5); LYMPH # 1.3 10^3/uL (1.5-5.0); LYMPH % 20.7 % (24.0-44.0); MEAN CORPUSCULAR HGB CONC 33.5 g/dl (32.0-36.5); MEAN CORPUSCULAR VOLUME 104.4 fl (80.0-96.0); MONO % 15.9 % (0.0-5.0); NEUTROPHILS # 3.9 10^3/uL (1.5-8.5); NEUTROPHILS % 61.2 % (36.0-66.0); PLATELET COUNT, AUTOMATED 228 10^3/uL (150-450); WHITE BLOOD COUNT 6.3 10^3/uL (4.0-10.0)
[2019-03-22 06:43] LABS: INR 0.95; PROTHROMBIN TIME 12.4 SECONDS (11.8-14.0)
[2019-03-22 06:44] LABS: PARTIAL THROMBOPLASTIN TIME 28.6 SECONDS (25.0-38.4)
[2019-03-22 06:56] LABS: ALBUMIN 3.1 GM/DL (3.2-5.2); ALT/SGPT 119 U/L (12-78); BILIRUBIN,TOTAL 0.5 MG/DL (0.2-1.0); BLOOD UREA NITROGEN 20 MG/DL (7-18); CALCIUM LEVEL 9.1 MG/DL (8.5-10.1); CARBON DIOXIDE LEVEL 26 MEQ/L (21-32); CHLORIDE LEVEL 106 MEQ/L (98-107); CREATININE FOR GFR 0.71 MG/DL (0.70-1.30); GLOMERULAR FILTRATION RATE > 60.0 (>60); GLUCOSE, FASTING 77 MG/DL (70-100); POTASSIUM SERUM 3.6 MEQ/L (3.5-5.1); SODIUM LEVEL 138 MEQ/L (136-145); TOTAL PROTEIN 7.5 GM/DL (6.4-8.2)
[2019-03-22] MEDS: HumaLOG INSULIN (NovoLOG) PER UNIT SC SCH ×4 (07:30→21:00)
--- NOTE | 2019-03-22 10:06 | MHCRPDOC ---
[facility] Consultation Consultation DATE OF CONSULTATION: 03/22/19 CONSULTATION REQUESTED BY: Dr. Hubbard Psychiatric consult Note Chief Complaint: Consultations for hallucinations in the setting of alcohol withdrawal History of Present Illness: The patient a 43-year-old man with an extensive history of alcohol use presents to [facility] withdrawing from alcohol, he has stopped drinking three days ago and is been going experiencing auditory and visual garcia ucinations. I met with the patient and he appeared fairly tired due to the Ativan dosing as he was scoring on the alcohol withdrawal scoring, however he was able to answer a few questions related to his baseline mental status. He reports he drinks up to eight beers a day Review of Psychiatric Systems: Affective:The patient denies any episodes of unprovoked depressed mood associat ed with neurovegetative symptoms lasting longer than 2 weeks with symptoms present nearly everyday. The patient denies any episodes of euphoria/dysphoria associated with decreased need for sleep, hedonism, talkatively or impulsivity lasting longer than 5 days. Anxiety:The patient denies any excessive worry associated with physical symptoms. They deny any experience of discreet panic in the past. Trauma:The patient denies any traumatic events associated with nightmares or intrusive thoughts. Psychosis:The patient denies any experiences of auditory or visual hallucinations. They deny any episodes of paranoia or delusional thinking in the past Personality Screen: not screened Past Psychiatric History: Current Diagnoses: denies Current Outpatient: denies Current Medication regiment: denies Past Psychiatric Admissions: denies, appears to have a distant admission the past for adjustment Suicide Attempts: denies Past Family Psychiatric History: Denies any family history of mental health or substance use Social History and Family of Origin: Early Family/family of Origin: grew up in local area Education: graduate high school Occupation: unemployed on Social Security Social supports: family Current housing: lives alone in an apartment Social activities/hobbies: few Marital/romantic: unmarried has one child Addiction History: Alcohol: as above Cannabis: intermittent use Opioids: denies Stimulants: denies Sedatives: denies Misc: reports tobacco use daily Medical Problems: Anemia Mental Status Exam: Vitals: reviewed General: fair hygiene Behavior: tired Mood:" okay" Affect: tired and fatigued Thought process: linear Assoications: contact Thought content: no paranoid ideation elicited Perception: notes sometimes seeing ego-dystonic visual hallucinations but denies any currently or any auditory hallucinations Cognition: alert but tired and sleepy, orientated to time but not to date Psychomotor: no tremors noted Insight: fair Judgement: fair Assessment: 43-year-old male with significant alcohol use presents in alcohol withdrawal he is likely experiencing delirium tremens Diagnostics by DSMV: Alcohol withdrawal, severe tobacco use disorder Recommendations/Rational Medications: recommend continued alcohol withdrawal protocols Disposition: doesn't meet involuntary criteria, as patient is primarily experiencing withdrawal from alcohol with perceptual disturbances denies any suicidal or homicidal ideation appears able to attend to basic needs, declines voluntary admission. No history of significant psychiatric involvement, or proximal para suicidal behavior. Safety: low risk for suicide due to the factors above, please call back if any safety concerns noted or continuance of symptoms of VH after resolution of alcohol withdrawal Aung Balderas DO Vital Signs Vital Signs Date Time Temp Pulse Resp B/P (MAP) Pulse Ox O2 Delivery O2 Flow Rate FiO2 03/22/19 06:14 83 146/81 03/22/19 06:00 98.3 18 99 03/21/19 22:00 Room Air Laboratory Data 24H Labs Laboratory Tests 2 03/21/19 10:10: Lactic Acid Level 0.8 03/21/19 11:41: Bedside Glucose (Misc Panel) 202H 03/21/19 13:02: Total Bilirubin 0.5, Direct Bilirubin 0.1, Aspartate Amino Transf (AST/SGOT) 83H, Alanine Aminotransferase (ALT/SGPT) 110H, Alkaline Phosphatase 58, Total Pr otein 7.3, Albumin 3.1L, Albumin/Globulin Ratio 0.74L 03/21/19 18:07: Total Bilirubin 0.7, Direct Bilirubin 0.2, Aspartate Amino Transf (AST/SGOT) 106H, Alanine Aminotransferase (ALT/SGPT) 131H, Alkaline Phosphatase 60, Total Protein 7.6, Albumin 3.3, Albumin/Globulin Ratio 0.77L 03/21/19 18:09: Bedside Glucose (Misc Panel) 135H 03/21/19 20:37: Bedside Glucose (Misc Panel) 118H 03/22/19 05:41: Immature Granulocyte % (Auto) 0.3, Neutrophils (%) (Auto) 61.2, Lymphocytes (%) (Auto) 20.7L, Monocytes (%) (Auto) 15.9H, Eosinophils (%) (Auto) 1.4, Basophils (%) (Auto) 0.5, Neutrophils # (Auto) 3.9, Lymphocytes # (Auto) 1.3L, Monocytes # (Auto) 1.0H, Eosinophils # (Auto) 0.1, Basophils # (Auto) 0.0, Nucleated Red Blood Cells % (auto) 0.0, Prothrombin Time 12.4, Prothromb Time International Ratio 0.95, Activated Partial Thromboplast Time 28.6, Anion Gap 6L, Glomerular Filtration Rate > 60.0, Calcium Level 9.1, Total Bilirubin 0.5, Aspartate Amino Transf (AST/SGOT) 77H, Alanine Aminotransferase (ALT/SGPT) 119H, Alkaline Phosphatase 56, Total Protein 7.5, Albumin 3.1L, Albumin/Globulin Ratio 0.70L Home Medications Current Medications Current Medications Medications (Trade) Dose Ordered Sig/Drew Route PRN Reason Start Time Stop Time Status Last Admin Dose Admin Cilostazol (Pletal) 50 mg BID@0730,1730 PO 03/21/19 17:30 03/21/19 17:30 Dextrose (Dextrose 50%) 25 ml ASDIRECTED PRN IV SEE LABEL COMMENTS 03/21/19 09:00 Enoxaparin Sodium (Lovenox) 40 mg DAILY SC 03/21/19 09:00 03/21/19 13:11 Folic Acid (Folic Acid) 1 mg DAILY PO 03/21/19 09:00 Cancel Folic Acid (Folic Acid) 1 mg DAILY PO 03/22/19 09:00 Glucagon (Glucagon) 1 mg ASDIRECTED PRN SC SEE LABEL COMMENTS 03/21/19 09:00 Glucose (Glucose) 16 GM ASDIRECTED PRN PO SEE LABEL COMMENTS 03/21/19 09:00 Home Med (Med Rec Complete!) ASDIRECTED XX 03/21/19 08:45 03/21/19 08:46 DC Insulin Detemir (Levemir Insulin) 20 units QHS SC 03/21/19 21:00 03/21/19 20:42 Insulin Human Lispro (HumaLOG INSULIN) See Protocol Table AC SC 03/21/19 12:00 03/21/19 18:54 Insulin Human Lispro (HumaLOG INSULIN) See Protocol Table QHS SC 03/21/19 21:00 Lorazepam (Ativan) 1 mg STAT STAT IV 03/21/19 07:03 03/21/19 08:44 DC 03/21/19 08:01 Lorazepam (Ativan) 2 mg ASDIRECTED PRN PO SEE PROTOCOL 03/21/19 09:00 03/22/19 09:10 DC 03/22/19 06:43 Multivitamins (Theragram-M) 1 tab DAILY PO 03/21/19 09:00 03/21/19 08:54 DC Multivitamins (Theragram-M) 1 tab DAILY PO 03/22/19 09:00 Nicotine (Nicorette) 2 mg Q4HP PRN PO NICOTINE WITHDRAWAL 03/21/19 17:30 03/21/19 21:20 Thiamine HCl (Thiamine HCl) 100 mg BID PO 03/21/19 09:00 03/23/19 21:01 03/21/19 20:37 Scheduled Cholecalciferol (Vitamin D3) (Vitamin D3) 1,000 Unit Tablet, 1,000 UNIT PO Q2D, (Reported) Cilostazol (Cilostazol) 50 Mg Tablet, 50 MG PO BID, (Reported) Insulin Aspart (Novolog Flexpen) 100 Unit/1 Ml Insuln.pen, 1 DOSE SC AC, (Reported) PER SLIDING SCALE Insulin Detemir (Levemir) 100 Unit/1 Ml Vial, 20 UNITS SC QHS, (Reported) Metformin HCl (Metformin HCl) 500 Mg Tablet, 500 MG PO DAILY, (Reported) PRESCRIBED BID, PATIENT HAS ONLY BEEN TAKING DAILY DUE TO DIARRHEA Nicotine (Nicotine Patch) 21 Mg/24 Hr Patch.td24, 21 MG TOP DAILY, (Reported) HAS NOT STARTED - WAITING FOR RX [facility] Scheduled PRN Nicotine Polacrilex (Nicotine Gum) 2 Mg Gum, 2 MG MT Q2H PRN for SMOKING CE SSATION, (Reported) Tramadol HCl (Tramadol HCl) 50 Mg Tablet, 50 MG PO BID PRN for PAIN, (Reported) Allergies Coded Allergies: No Known Allergies (Unverified , 01/24/19) AUNG BALDERAS DO Mar 22, 2019 10:06
[2019-03-22] MEDS: FOLIC ACID 1 MG TAB PO SCH (12:22)
[2019-03-22] MEDS: MULTIVITAMINS/MINERALS THERAP 1 TAB PO SCH (12:22)
[2019-03-22] MEDS: CILOSTAZOL 100 MG TAB (PLETAL) PO SCH ×2 (12:23→20:10)
[2019-03-22] MEDS: ENOXAPARIN 40 MG/0.4 ML SYRINGE (J1650) SC SCH (12:23)
[2019-03-22] MEDS: THIAMINE 100 MG TAB PO SCH ×2 (12:23→20:10)
--- NOTE | 2019-03-22 14:42 | IPNPDOC ---
Subjective Date Seen The patient was seen on 03/22/19. Subjective Chief Complaint/HPI overnight patient continued to have auditory and visual hallucinations and received 2 doses of ativan. So this am was somnolent. Has a sitter in the room. Have consulted psychiatry to evaluate for any underlying psychiatric disorder. No fever or chills, no chest pain or sob , Says i svkory sleepy wants to sleep some more. Objective Physical Examination General Exam: Positive: Alert, Cooperative, No Acute Distress Eye Exam: Positive: PERRLA, Conjunctiva & lids normal, EOMI; Negative: Sclera icteric ENT Exam: Positive: Atraumatic, Mucous membr. moist/pink, Pharynx Normal Neck Exam: Positive: Supple; Negative: JVD, thyromegaly Chest Exam: Positive: Clear to auscultation, Normal air movement; Negative: Rales, Rhonchi, Wheezing, Diminished, Other Heart Exam: Positive: Rate Normal, Regular Rhythm, Normal S1, Normal S2; Negative: Murmurs, Rubs Telemetry: Positive: No significant arrhythmia Abdomen Exam: Positive: Normal bowel sounds, Soft; Negative: Tenderness, Hepatospenomegaly Extremity Exam: Positive: Edema Skin Exam: Positive: Lesion (chronic ulcer in tatianna ball of the left foot about 4 cm x 4 cm), Other skin issue (chronic stasis dermatitis on both the legs. ) Neuro Exam: Positive: Normal Speech, Strength at 5/5 X4 ext Psych Exam: Positive: Oriented x 3, Other (hallucinations. 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 His friend said he was having "LSD" like symptoms. He says he never did LSD and thinks someone must have put LSD / speed in his drink. He was very frightened as he continued to hallucinate so did not drink any more. He then saw someone jumping off the roof . heard a thump and thought it was his friend who jumped of the roof so called the "911". EMS and [facility] arrived at his place and there was nothing. It was determined that he was hallucinating and he was brought to the ED. After about 6 hours in the ED he still continued to have hallucinations, seen talking to the light fixtures, seeing people standing at the foot of his bed when there is no one. talking about seeing the " mathew of " at the foot of his bed. Patient was admitted for hallucination. Unknown drug intake. given by friends in drink U tox positive for only cannabis. Poison control contacted advised to monitor LFTs till they are coming down Transaminitis due to drug vs chronic alcohol abuse will monitor LFTS acetaminophen level not elevated. Hallucinations due to acute delirium due to drug vs primary psych problem as per patient he often hears voices and sees people that he has known who are not there for the past 3 years it is much more severe since yesterday. Have consulted psych. Alcohol abuse with withdrawal with delirium tremens continue on CIWA protocol and ativan prn thiamine and folate. Diabetes Levemir and lispro FS as per sliding scale Peripheral arterial disease continue cilastazole Chronic foot ulcer nonhealing wound care nurse dr Varela contacted planned for surgery later this week. Plan/VTE VTE Prophylaxis Ordered?: Yes VS, I&O, 24H, Fishbone Vital Signs/I&O Vital Signs Date Time Temp Pulse Resp B/P (MAP) Pulse Ox O2 Delivery O2 Flow Rate FiO2 03/22/19 06:14 83 146/81 03/22/19 06:00 98.3 18 99 03/21/19 22:00 Room Air I&O- Last 24 Hours up to 6 AM 03/22/19 06:00 Intake Total 2720 ml Balance 2720 ml Laboratory Data 24H LABS Laboratory Tests 2 03/21/19 18:07: Total Bilirubin 0.7, Direct Bilirubin 0.2, Aspartate Amino Transf (AST/SGOT) 106H, Alanine Aminotransferase (ALT/SGPT) 131H, Alkaline Phosphatase 60, Total Protein 7.6, Albumin 3.3, Albumin/Globulin Ratio 0.77L 03/21/19 18:09: Bedside Glucose (Misc Panel) 135H 03/21/19 20:37: Bedside Glucose (Misc Panel) 118H 03/22/19 05:41: Total Bilirubin 0.5, Aspartate Amino Transf (AST/SGOT) 77H, Alanine Aminotransferase (ALT/SGPT) 119H, Alkaline Phosphatase 56, Total Protein 7.5, Albumin 3.1L, Albumin/Globulin Ratio 0.70L, Immature Granulocyte % (Auto) 0.3, Neutrophils (%) (Auto) 61.2, Lymphocytes (%) (Auto) 20.7L, Monocytes (%) (Auto) 15.9H, Eosinophils (%) (Auto) 1.4, Basophils (%) (Auto) 0.5, Neutrophils # (Auto) 3.9, Lymphocytes # (Auto) 1.3L, Monocytes # (Auto) 1.0H, Eosinophils # (Auto) 0.1, Basophils # (Auto) 0.0, Nucleated Red Blood Cells % (auto) 0.0, Prothrombin Time 12.4, Prothromb Time International Ratio 0.95, Activated Partial Thromboplast Time 28.6, Anion Gap 6L, Glomerular Filtration Rate > 60.0, Calcium Level 9.1 03/22/19 11:48: Bedside Glucose (Misc Panel) 77 CBC/BMP Laboratory Tests 03/22/19 05:41 JAGRUTI WRAY MD Mar 22, 2019 14:42
[2019-03-22] MEDS ORDERED: LORazepam 2 MG TAB PO PRN (14:45)
[2019-03-22] MEDS: NICOTINE POLACRILEX 2 MG GUM PO PRN (15:47)
--- NOTE | 2019-03-22 18:34 | CR ---
DATE OF CONSULTATION: 03/22/2019 REASON FOR CONSULTATION: Left foot ulceration. Ankit Taylor is a patient well-known to me who was admitted to the hospital with delirium. On examination, he is fairly lucid. He does have a sitter with him. He denies any changes in his feet. He has been scheduled for amputation of the remaining portion of his left hallux. However, he had to reschedule due to missed clearance appointments. He is for now scheduled for next week, 03/29/2019. PAST MEDICAL HISTORY: Significant for diabetes with neuropathy, peripheral vascular disease, history of right hallux amputation, left partial hallux amputation, history of alcohol abuse. PAST SURGICAL HISTORY: As above noted. ALLERGIES: None. SOCIAL HISTORY: Positive for smoker and alcohol use. FAMILY HISTORY: Noncontributory. VITAL SIGNS: Reviewed. He has been afebrile. LABORATORY DATA: Reviewed. White blood cell count is 7.1 on admission, 6.3 today. LOWER EXTREMITY EXAMINATION: On the left side, there is an ulceration of the remaining portion of the left hallux approximately 1.5 cm in diameter. No streaking erythema. ASSESSMENT: A 43-year-old diabetic male with left hallux ulceration. PLAN: Wound care orders written. We will keep scheduled surgery as planned on 03/29/2019 barring any medical reasons to postpone.
[2019-03-22] MEDS: LEVEMIR (INSULIN DETEMIR) 1 UNITS/0.01ML SC SCH (20:10)
[2019-03-23] MEDS: NICOTINE POLACRILEX 2 MG GUM PO PRN ×8 (00:04→23:28)
[2019-03-23] MEDS: LISINOPRIL 10 MG TAB PO SCH ×3 (00:39→20:03)
[2019-03-23 04:21] VITALS: BP 128/89
[2019-03-23 06:00] VITALS: BP 139/81
[2019-03-23 06:16] LABS: BASO % 0.7 % (0.0-1.0); EOS # 0.1 10^3/uL (0.0-0.5); EOS % 1.5 % (0.0-3.0); HEMOGLOBIN 13.1 g/dl (13.5-17.5); LYMPH # 1.3 10^3/uL (1.5-5.0); LYMPH % 21.3 % (24.0-44.0); MEAN CORPUSCULAR HEMOGLOBIN 35.1 pg (27.0-33.0); MEAN CORPUSCULAR HGB CONC 33.6 g/dl (32.0-36.5); MEAN CORPUSCULAR VOLUME 104.6 fl (80.0-96.0); MONO # 1.1 10^3/uL (0.0-0.8); MONO % 17.9 % (0.0-5.0); NEUTROPHILS # 3.5 10^3/uL (1.5-8.5); NEUTROPHILS % 58.3 % (36.0-66.0); PLATELET COUNT, AUTOMATED 279 10^3/uL (150-450); RED BLOOD COUNT 3.73 10^6/uL (4.30-6.10)
[2019-03-23 06:41] LABS: ALBUMIN 3.1 GM/DL (3.2-5.2); ALT/SGPT 155 U/L (12-78); BILIRUBIN,TOTAL 0.5 MG/DL (0.2-1.0); BLOOD UREA NITROGEN 21 MG/DL (7-18); CALCIUM LEVEL 9.1 MG/DL (8.5-10.1); CARBON DIOXIDE LEVEL 28 MEQ/L (21-32); CHLORIDE LEVEL 104 MEQ/L (98-107); CREATININE FOR GFR 0.77 MG/DL (0.70-1.30); GLOMERULAR FILTRATION RATE > 60.0 (>60); GLUCOSE, FASTING 90 MG/DL (70-100); SODIUM LEVEL 138 MEQ/L (136-145); TOTAL PROTEIN 7.6 GM/DL (6.4-8.2)
[2019-03-23] MEDS: HumaLOG INSULIN (NovoLOG) PER UNIT SC SCH ×4 (07:30→21:00)
[2019-03-23] MEDS: THIAMINE 100 MG TAB PO SCH ×2 (08:28→20:02)
[2019-03-23] MEDS: CILOSTAZOL 100 MG TAB (PLETAL) PO SCH ×2 (08:28→16:51)
[2019-03-23] MEDS: MULTIVITAMINS/MINERALS THERAP 1 TAB PO SCH (08:28)
[2019-03-23] MEDS: FOLIC ACID 1 MG TAB PO SCH (08:28)
[2019-03-23] MEDS: MUPIROCIN 2% OINT 22 GM TUBE TOP SCH (08:29)
[2019-03-23] MEDS: ENOXAPARIN 40 MG/0.4 ML SYRINGE (J1650) SC SCH (08:29)
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
[2019-03-23 14:00] VITALS: BP 126/87
[2019-03-23] MEDS: LEVEMIR (INSULIN DETEMIR) 1 UNITS/0.01ML SC SCH (20:02)
[2019-03-23 22:00] VITALS: BP 142/86
[2019-03-23 23:17] VITALS: BP 146/89
[2019-03-24] VITALS: BP 142/86
[2019-03-24 02:00] VITALS: BP 142/86
[2019-03-24] MEDS: NICOTINE POLACRILEX 2 MG GUM PO PRN ×3 (03:03→12:59)
[2019-03-24 06:00] VITALS: BP 138/89
[2019-03-24 06:09] LABS: BASO % 0.7 % (0.0-1.0); EOS # 0.1 10^3/uL (0.0-0.5); EOS % 2.4 % (0.0-3.0); HEMATOCRIT 39.2 % (42.0-52.0); HEMOGLOBIN 13.2 g/dl (13.5-17.5); LYMPH # 1.4 10^3/uL (1.5-5.0); MEAN CORPUSCULAR HEMOGLOBIN 35.1 pg (27.0-33.0); MEAN CORPUSCULAR HGB CONC 33.7 g/dl (32.0-36.5); MEAN CORPUSCULAR VOLUME 104.3 fl (80.0-96.0); MONO % 17.4 % (0.0-5.0); NEUTROPHILS # 2.9 10^3/uL (1.5-8.5); NEUTROPHILS % 53.1 % (36.0-66.0); PLATELET COUNT, AUTOMATED 304 10^3/uL (150-450); RED BLOOD COUNT 3.76 10^6/uL (4.30-6.10); WHITE BLOOD COUNT 5.5 10^3/uL (4.0-10.0)
[2019-03-24 06:36] LABS: ALT/SGPT 133 U/L (12-78); BILIRUBIN,TOTAL 0.3 MG/DL (0.2-1.0); BLOOD UREA NITROGEN 20 MG/DL (7-18); CALCIUM LEVEL 8.8 MG/DL (8.5-10.1); CARBON DIOXIDE LEVEL 27 MEQ/L (21-32); CHLORIDE LEVEL 104 MEQ/L (98-107); CREATININE FOR GFR 0.67 MG/DL (0.70-1.30); GLOMERULAR FILTRATION RATE > 60.0 (>60); GLUCOSE, FASTING 88 MG/DL (70-100); POTASSIUM SERUM 3.9 MEQ/L (3.5-5.1); SODIUM LEVEL 136 MEQ/L (136-145); TOTAL PROTEIN 7.3 GM/DL (6.4-8.2)
[2019-03-24] MEDS: HumaLOG INSULIN (NovoLOG) PER UNIT SC SCH ×2 (07:30→12:59)
[2019-03-24 08:00] VITALS: BP 134/89
[2019-03-24 08:59] VITALS: BP 134/89
[2019-03-24] MEDS: LISINOPRIL 10 MG TAB PO SCH (08:59)
[2019-03-24] MEDS: FOLIC ACID 1 MG TAB PO SCH (08:59)
[2019-03-24] MEDS: ENOXAPARIN 40 MG/0.4 ML SYRINGE (J1650) SC SCH (09:00)
[2019-03-24] MEDS: MUPIROCIN 2% OINT 22 GM TUBE TOP SCH (09:00)
[2019-03-24] MEDS: MULTIVITAMINS/MINERALS THERAP 1 TAB PO SCH (09:00)
[2019-03-24] MEDS: CILOSTAZOL 100 MG TAB (PLETAL) PO SCH (09:00)
[2019-03-24] MEDS ORDERED: VITMTA PO (11:04)
[2019-03-24] MEDS ORDERED: THIA100T7 PO (11:04)
[2019-03-24] MEDS ORDERED: LISI10TA4 PO ×2 (11:04→13:16)
[2019-03-24] MEDS ORDERED: FOLI1TAB11 PO (11:04)
[2019-03-24 14:00] VITALS: BP_SYST 137; BP_DIAS 56; BP_DIAS 86
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
== END 2019-03-24 14:42 | disposition home or self-care (01) | DRG 897 ==
LOC: M ED 02:23 → M ED INP 08:47 → M MSPAV 10:56
PROVIDERS: ADMIT Internal Medicine Nephrology; ATTEND Internal Medicine Nephrology
DX: F10.231 Alcohol dependence with withdrawal delirium (principal); K70.10 Alcoholic hepatitis without ascites; I10 Essential (primary) hypertension; E11.51 Type 2 diabetes mellitus with diabetic peripheral angiopathy without gangrene; E11.40 Type 2 diabetes mellitus with diabetic neuropathy, unspecified; E11.621 Type 2 diabetes mellitus with foot ulcer; Z79.4 Long term (current) use of insulin; Z79.899 Other long term (current) drug therapy; L97.529 Non-pressure chronic ulcer of other part of left foot with unspecified severity; E55.9 Vitamin D deficiency, unspecified; F17.200 Nicotine dependence, unspecified, uncomplicated; Z89.421 Acquired absence of other right toe(s); Z89.422 Acquired absence of other left toe(s)

== ENCOUNTER 2019-03-29 09:22 | Day surgery (SDC) | payer OTHER ==
[~2019-03-29] VITALS: Ht 180.3 cm; Wt 105.7 kg
[~2019-03-29 09:22] MED LIST changes: +BUPIVACAINE HCL 0.5% 10 ML VIAL As Ordered ONE; +CILO50TA PO; +FOLI1TAB11 PO; +LIDOCAINE 1% MDV 20ML VIAL As Ordered ONE; +LISI10TA4 PO; +LR 1,000 ML IV ONE; +NICO1PAT15 TOP; +NICO2GUM MT; +NOVOINJ3 SC; +THIA100T7 PO; +TRAM50TA2 PO; +VANCOMYCIN HCL 1,000 MG, VIAL MATE ADAPTER 1 EACH in D5W 250 ML IV ONE; +VITA-144 PO; +VITMTA PO
[2019-03-29] MEDS ORDERED: PROPOFOL 200 MG/20 ML VIAL As Ordered ONE ×2 (09:48→12:10)
[2019-03-29] MEDS ORDERED: LIDOCAINE 2% INJ 100 MG/5 ML SDV (FOR ANES.) As Ordered ONE (09:48)
[2019-03-29] MEDS ORDERED: fentaNYL 100 MCG/2 ML INJECTION (J3010) As Ordered ONE (09:48)
[2019-03-29] MEDS ORDERED: ONDANSETRON 4MG/2ML VIAL (J2405) As Ordered ONE (09:49)
[2019-03-29] MEDS ORDERED: dexameTHASONE 4 MG/ML 1ML VIAL (J1100) As Ordered ONE (09:49)
[2019-03-29] MEDS ORDERED: MIDAZOLAM INJ 2 MG/2 ML VIAL (J2250) As Ordered ONE (09:49)
[2019-03-29] MEDS ORDERED: HYDR-3713 PO (12:38)
[2019-03-29] MEDS ORDERED: BACT800T5 PO (12:40)
--- NOTE | 2019-03-29 12:56 | RO ---
DATE OF SURGERY: 03/29/2019 PREOPERATIVE DIAGNOSIS: Left hallux diabetic ulceration. POSTOPERATIVE DIAGNOSIS: Left hallux diabetic ulceration. PROCEDURE: Left hallux amputation. SURGEON: Sandeep Varela DPM ASSET PROTECTION OFFICER: None ANESTHESIA: Monitored anesthesia care with preoperative injection of 20 mL of 1:1 mixture of 1% lidocaine plain and 0.5% Marcaine plain. ESTIMATED BLOOD LOSS: Minimal. MATERIALS: 3-0 nylon. INJECTABLES: None. COMPLICATION: None. CONDITION: Stable. Ankit Taylor is a 43-year-old male who presents to [facility] with chronic ulcerations to his left hallux. He has had previous partial amputation to his left hallux but continues to have ulceration and discharge from the residual portion. He failed numerous conservative attempts to heal wound, including offloading and various wound dressings, in part due to noncompliance with offloading. He presents today for removal of remaining portion of hallux. The patient's side and site were identified and marked in the preoperative holding area. Consent was reviewed and obtained. All risks, complications, and alternatives to the procedure were explained to the patient in detail, and all questions were answered. DESCRIPTION OF PROCEDURE: The patient was brought to the operating room and placed on the operating table in supine position. Monitored anesthesia care was delivered by the anesthesia team. A preoperative injection of 20 mL of 1:1 mixture of 1% lidocaine plain and 0.5% Marcaine plain were injected to the left foot. The left foot was prepped and draped in normal sterile fashion. The tourniquet was applied to the left ankle and inflated at 250 mmHg. The ulceration was on the plantar surface of the remaining portion of the left hallux. This was excised with an ancillary incision along the medial portion of the toe. The proximal phalanx of the hallux was disarticulated at the metatarsophalangeal joint, and some of the tendon and nonviable tissue was debrided with #15 blade and removed. The metatarsal head appeared normal without signs of infection. The site was irrigated with normal saline, and the wound and incision were closed using 3-0 nylon. Gauze dressings were applied. The tourniquet was deflated. The patient was brought to postanesthesia care unit (PACU) with vital signs stable and neurovascular status intact. He will be partial weightbearing to his left foot. He will followup in office in 2 days.
[2019-03-29 14:10] VITALS: BP 146/79
[2019-03-29] MEDS ORDERED: LR 1,000 ML IV SCH (14:30)
[2019-03-29] MEDS ORDERED: METOCLOPRAMIDE INJ 10MG/2ML VIAL (J2765) IV PRN (14:30)
[2019-03-29] MEDS ORDERED: ONDANSETRON 4MG/2ML VIAL (J2405) IV PRN (14:30)
[2019-03-29] MEDS ORDERED: fentaNYL 100 MCG/2 ML INJECTION (J3010) IV PRN (14:30)
[2019-03-29] MEDS: oxyCODONE 5MG TAB PO PRN ×2 (14:45→15:58)
[2019-03-29] MEDS ORDERED: oxyCODONE 5MG TAB As Ordered ONE (15:57)
== END 2019-03-29 16:36 | disposition home or self-care (01) ==
LOC: M SDC 09:22
PROVIDERS: ATTEND Podiatrist Foot & Ankle Surgery
DX: E11.621 Type 2 diabetes mellitus with foot ulcer (principal); E11.40 Type 2 diabetes mellitus with diabetic neuropathy, unspecified; Z79.4 Long term (current) use of insulin; Z79.899 Other long term (current) drug therapy; F41.9 Anxiety disorder, unspecified; F32.9 Major depressive disorder, single episode, unspecified; I10 Essential (primary) hypertension; F17.218 Nicotine dependence, cigarettes, with other nicotine-induced disorders
CPT/HCPCS: 28820; 88304; 88311; J2250; J2405; J3010; J3370

== ENCOUNTER → 2019-04-18 | Outpatient (REF) | payer OTHER ==
[~2019-04-18] MED LIST changes: +BACT800T5 PO; -BUPIVACAINE HCL 0.5% 10 ML VIAL As Ordered ONE; +HYDR-3713 PO; -LIDOCAINE 1% MDV 20ML VIAL As Ordered ONE; -LR 1,000 ML IV ONE; -VANCOMYCIN HCL 1,000 MG, VIAL MATE ADAPTER 1 EACH in D5W 250 ML IV ONE
== END ==
LOC: M LAB REF 16:24
PROVIDERS: ATTEND Podiatrist Foot & Ankle Surgery
DX: L03.116 Cellulitis of left lower limb (principal)

== ENCOUNTER 2019-06-01 00:01 | Inpatient (IN) | payer OTHER ==
[~2019-06-01] VITALS: Ht 180.3 cm; Wt 106.5 kg
[2019-06-01 00:44] LABS: BASO % 0.3 % (0.0-1.0); EOS % 0.4 % (0.0-3.0); HEMOGLOBIN 14.6 g/dl (13.5-17.5); LYMPH # 1.3 10^3/uL (1.5-5.0); LYMPH % 16.6 % (24.0-44.0); MEAN CORPUSCULAR HEMOGLOBIN 32.8 pg (27.0-33.0); MEAN CORPUSCULAR HGB CONC 32.4 g/dl (32.0-36.5); MEAN CORPUSCULAR VOLUME 101.1 fl (80.0-96.0); MONO # 0.9 10^3/uL (0.0-0.8); MONO % 12.5 % (0.0-5.0); NEUTROPHILS # 5.3 10^3/uL (1.5-8.5); NEUTROPHILS % 69.9 % (36.0-66.0); PLATELET COUNT, AUTOMATED 167 10^3/uL (150-450); RED BLOOD COUNT 4.45 10^6/uL (4.30-6.10); WHITE BLOOD COUNT 7.5 10^3/uL (4.0-10.0)
[2019-06-01] MEDS ORDERED: OXAZEPAM 15 MG CAP PO ONE (01:00)
[2019-06-01] MEDS ORDERED: NS 1,000 ML IV ONE ×2 (01:00→09:45)
[2019-06-01 01:01] LABS: BLOOD UREA NITROGEN 19 MG/DL (7-18); CALCIUM LEVEL 8.9 MG/DL (8.5-10.1); CARBON DIOXIDE LEVEL 23 MEQ/L (21-32); CHLORIDE LEVEL 99 MEQ/L (98-107); CREATININE FOR GFR 0.92 MG/DL (0.70-1.30); ETHYL ALCOHOL (ETHANOL) < 0.003 % (0.000-0.010); GLOMERULAR FILTRATION RATE > 60.0 (>60); GLUCOSE, FASTING 144 MG/DL (70-100); POTASSIUM SERUM 4.3 MEQ/L (3.5-5.1); SODIUM LEVEL 133 MEQ/L (136-145)
[2019-06-01] MEDS ORDERED: LORazepam 2 MG/ML VIAL (J2060) IV STA ×3 (01:08→08:02)
[2019-06-01 02:53] LABS: AMPHETAMINES LEVEL URINE NEGATIVE (NEGATIVE); BARBITURATES URINE NEGATIVE (NEGATIVE); BENZODIAZEPINES URINE NEGATIVE (NEGATIVE); CANNABINOIDS URINE NEGATIVE (NEGATIVE); COCAINE METABOLITE URINE NEGATIVE (NEGATIVE); METHADONE URINE NEGATIVE (NEGATIVE); OPIATES URINE NEGATIVE (NEGATIVE); PHENCYCLIDINE URINE NEGATIVE (NEGATIVE)
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
[2019-06-01] MEDS ORDERED: ACETAMINOPHEN TAB 650MG DOSE (2X325MG) PO PRN (03:15)
[2019-06-01] MEDS ORDERED: LORazepam 2 MG TAB PO PRN (03:15)
[2019-06-01] MEDS ORDERED: MAALOX 30 ML SUSP *UDC PO PRN (03:15)
[2019-06-01] MEDS ORDERED: MOM 30ML SUSPENSION UDC PO PRN (03:15)
[2019-06-01] MEDS ORDERED: BACT800T5 PO (03:46)
[2019-06-01] MEDS ORDERED: FOLI1TAB11 PO (03:46)
[2019-06-01] MEDS ORDERED: HYDR-3713 PO (03:46)
[2019-06-01] MEDS ORDERED: VITA100066 PO (03:46)
[2019-06-01] MEDS ORDERED: DEXTROSE 50% 50 ML SYRINGE IV PRN (04:15)
[2019-06-01] MEDS ORDERED: GLUCOSE 4 GM CHEW TABLET PO PRN (04:15)
[2019-06-01] MEDS ORDERED: GLUCAGON FOR INJ 1 MG VIAL (J1610) SC PRN (04:15)
[2019-06-01] MEDS: THIAMINE 100 MG TAB PO SCH ×2 (04:17→21:38)
[2019-06-01] MEDS: NS 1,000 ML IV SCH ×3 (04:18→22:39)
[2019-06-01] MEDS ORDERED: PILL CUTTER 1 EACH XX PRN (04:30)
[2019-06-01] MEDS ORDERED: LORazepam 2 MG/ML VIAL (J2060) IV PRN ×3 (05:00→06:45)
[2019-06-01] MEDS ORDERED: NS 1,000 ML IV SCH (05:15)
[2019-06-01 05:45] VITALS: BP 145/91
--- NOTE | 2019-06-01 05:54 | ECGEPIP ---
[facility] - ED Test Date: 2019-06-01 Pat Name: CHEIKH TORO Department: Room: - Gender: Male Porter Sample Case: RAJINDER : 1975 Requested By: ADRIAN Bustamante Order Number: [id number] Reading MD: Shahzad Pimentel Measurements Intervals [place] Rate: 105 P: 17 NC: 165 QRS: -26 QRSD: 82 T: 3 QT: 322 QTc: 427 Interpretive Statements SINUS TACHYCARDIA BASELINE ARTIFACT AFFECTS INTERPRETATION Electronically Signed on 06-01-2019 5:53:44 EST by Shahzad Pimentel
[2019-06-01 06:25] LABS: HEMATOCRIT 41.8 % (42.0-52.0)
[2019-06-01 06:51] LABS: ALBUMIN 3.1 GM/DL (3.2-5.2); BILIRUBIN,DIRECT 0.3 MG/DL (0.0-0.2); BILIRUBIN,TOTAL 0.8 MG/DL (0.2-1.0); TOTAL PROTEIN 6.9 GM/DL (6.4-8.2)
[2019-06-01] MEDS: LORazepam 2 MG/ML VIAL (J2060) IV PRN ×3 (06:57→14:27)
[2019-06-01] MEDS ORDERED: HALOPERIDOL 5 MG/ML VIAL (J1630) As Ordered ONE (07:24)
[2019-06-01] MEDS: CILOSTAZOL 100 MG TAB (PLETAL) PO SCH ×2 (07:30→18:40)
[2019-06-01] MEDS: HumaLOG INSULIN (NovoLOG) PER UNIT SC SCH ×4 (07:30→21:00)
[2019-06-01] MEDS: HALOPERIDOL 5 MG/ML VIAL (J1630) IM PRN ×2 (07:55→08:00)
[2019-06-01 08:00] VITALS: BP_SYST 143; BP_SYST 168; BP_DIAS 103; BP_DIAS 89
[2019-06-01] MEDS ORDERED: HALOPERIDOL 5 MG/ML VIAL (J1630) IV ONE (08:15)
[2019-06-01] MEDS: ENOXAPARIN 40 MG/0.4 ML SYRINGE (J1650) SC SCH (09:00)
[2019-06-01] MEDS: MULTIVITAMINS/MINERALS THERAP 1 TAB PO SCH (09:00)
[2019-06-01] MEDS: DOCUSATE SODIUM 100 MG CAP PO SCH ×2 (09:00→21:38)
[2019-06-01] MEDS: FOLIC ACID 1 MG TAB PO SCH (09:00)
[2019-06-01] MEDS: NICOTINE 21MG/24HR 1 EA TRANSDERMAL TD SCH (09:00)
[2019-06-01] MEDS: VITAMIN D 1,000 INTERNATIONAL UNITS TABLET PO SCH (09:00)
[2019-06-01 12:00] VITALS: BP_SYST 134; BP_SYST 139; BP_DIAS 96
[2019-06-01 16:00] VITALS: BP 121/77
[2019-06-01 17:09] VITALS: BP 121/77
[2019-06-01 20:00] VITALS: BP 134/88
[2019-06-01] MEDS: LEVEMIR (INSULIN DETEMIR) 1 UNITS/0.01ML SC SCH (21:00)
[2019-06-02] VITALS: BP 123/73
[2019-06-02 04:00] VITALS: BP_SYST 151; BP_SYST 158; BP_DIAS 98
[2019-06-02] MEDS: NORCO, ANEXSIA 5/325MG TABLET (HYDROcodone/ACETAMINOPHEN) PO PRN ×2 (04:33→16:15)
[2019-06-02 06:11] LABS: HEMATOCRIT 38.4 % (42.0-52.0); MEAN CORPUSCULAR HEMOGLOBIN 33.3 pg (27.0-33.0); MEAN CORPUSCULAR VOLUME 104.1 fl (80.0-96.0); PLATELET COUNT, AUTOMATED 162 10^3/uL (150-450); RED BLOOD COUNT 3.69 10^6/uL (4.30-6.10); WHITE BLOOD COUNT 4.4 10^3/uL (4.0-10.0)
[2019-06-02 06:12] LABS: HEMOGLOBIN 12.3 g/dl (13.5-17.5)
[2019-06-02 06:23] LABS: ALBUMIN 2.8 GM/DL (3.2-5.2); ALT/SGPT 153 U/L (12-78); BILIRUBIN,TOTAL 0.7 MG/DL (0.2-1.0); BLOOD UREA NITROGEN 10 MG/DL (7-18); CALCIUM LEVEL 8.4 MG/DL (8.5-10.1); CARBON DIOXIDE LEVEL 27 MEQ/L (21-32); CHLORIDE LEVEL 104 MEQ/L (98-107); CREATININE FOR GFR 0.72 MG/DL (0.70-1.30); GLOMERULAR FILTRATION RATE > 60.0 (>60); GLUCOSE, FASTING 100 MG/DL (70-100); MAGNESIUM LEVEL 1.9 MG/DL (1.8-2.4); PHOSPHORUS LEVEL 2.8 MG/DL (2.5-4.9); POTASSIUM SERUM 4.4 MEQ/L (3.5-5.1); SODIUM LEVEL 136 MEQ/L (136-145); TOTAL PROTEIN 6.6 GM/DL (6.4-8.2)
[2019-06-02] MEDS: CILOSTAZOL 100 MG TAB (PLETAL) PO SCH ×2 (07:17→18:55)
[2019-06-02] MEDS: NS 1,000 ML IV SCH (07:17)
[2019-06-02] MEDS: HumaLOG INSULIN (NovoLOG) PER UNIT SC SCH ×4 (07:30→21:00)
[2019-06-02 08:00] VITALS: BP 163/96
[2019-06-02] MEDS: MULTIVITAMINS/MINERALS THERAP 1 TAB PO SCH (08:41)
[2019-06-02] MEDS: ENOXAPARIN 40 MG/0.4 ML SYRINGE (J1650) SC SCH (08:41)
[2019-06-02] MEDS: VITAMIN D 1,000 INTERNATIONAL UNITS TABLET PO SCH (08:41)
[2019-06-02] MEDS: NICOTINE 21MG/24HR 1 EA TRANSDERMAL TD SCH (08:41)
[2019-06-02] MEDS: FOLIC ACID 1 MG TAB PO SCH (08:42)
[2019-06-02] MEDS: DOCUSATE SODIUM 100 MG CAP PO SCH ×2 (08:42→21:00)
[2019-06-02] MEDS: THIAMINE 100 MG TAB PO SCH ×2 (08:42→22:06)
[2019-06-02] MEDS ORDERED: NORCO, ANEXSIA 5/325MG TABLET (HYDROcodone/ACETAMINOPHEN) PO ONE (10:00)
[2019-06-02 12:00] VITALS: BP 143/84
[2019-06-02 18:00] VITALS: BP 131/92
[2019-06-02 22:00] VITALS: BP 139/91
--- NOTE | 2019-06-02 22:03 | IPNPDOC ---
Date Seen The patient was seen on 06/02/19. Progress Note HISTORY OF PRESENT ILLNESS: 43 y.o male w/ PMH of DM, PVD & HTN was admitted for alcohol withdrawal. He was altered upon admission but has had significant improvement in mentation and behaviour overnight. He is currently A&O x3, without complaints apart from L foot pain. He denies any anxiety, chills, sweats, SOB, CP, N/V/D or abdominal pain. 10 point review of system is negative except for above PHYSICAL EXAMINATION: VITAL SIGNS: Please see below. GENERAL: No distress HEENT: Normocephalic, atraumatic, moist mucous membranes NECK: Supple CARDIOVASCULAR EXAMINATION: S1, S2, no murmurs RESPIRATORY EXAMINATION: Scattered rhonchi, no wheezing ABDOMINAL EXAMINATION: Soft, mild diffuse tenderness, nondistended, positive bowel sounds EXTREMITIES: L foot w/ partially healed wound on plantar surface SKIN: No rash NEUROLOGICAL EXAMINATION: Alert and oriented 3, no focal deficits PSYCHIATRIC EXAMINATION: Calm and cooperative LABORATORY DATA: See below. MICROBIOLOGY: Please see below. ASSESSMENT: 43 y.o male w/ PMH of DM, PVD & HTN was admitted for Alcohol withdrawal PLAN: 1. Alcohol withdrawal - significant improvement, seems to have resolved, CIWA protocol discontinued, PT ordered, will observe through today & tentatively plan for discharge tomorrow. 2. DM - continue Levemir w/ sliding scale insulin before meals & at bedtime. 3. HTN - continue Norvasc 4. Claudication - continue cilostazol DVT prophylaxis: Lovenox GI prophylaxis: Not needed VS, I&O, 24H, Fishbone Vital Signs/I&O Vital Signs Date Time Temp Pulse Resp B/P (MAP) Pulse Ox O2 Delivery O2 Flow Rate FiO2 06/02/19 18:00 97.8 83 18 131/92 (105) 97 Room Air I&O- Last 24 Hours up to 6 AM 06/02/19 06:00 Intake Total 2545 ml Output Total 2010 ml Balance 535 ml Laboratory Data 24H LABS Laboratory Tests 2 06/02/19 05:21: Nucleated Red Blood Cells % (auto) 0.0, Anion Gap 5L, Glomerular Filtration Rate > 60.0, Calcium Level 8.4L, Phosphorus Level 2.8, Magnesium Level 1.9, Total Bilirubin 0.7, Aspartate Amino Transf (AST/SGOT) 131H, Alanine Aminotransferase (ALT/SGPT) 153H, Alkaline Phosphatase 56, Total Protein 6.6, Albumin 2.8L, Albumin/Globulin Ratio 0.74L 06/02/19 12:04: Bedside Glucose (Misc Panel) 104 06/02/19 16:32: Bedside Glucose (Misc Panel) 143H 06/02/19 21:12: Bedside Glucose (Misc Panel) 102 CBC/BMP Laboratory Tests 06/02/19 05:21 NAOMI VANCE MD Jun 02, 2019 22:03
[2019-06-02] MEDS: LEVEMIR (INSULIN DETEMIR) 1 UNITS/0.01ML SC SCH (22:06)
[2019-06-02] MEDS: traMADol 50 MG TAB PO PRN (22:14)
[2019-06-03] MEDS: NORCO, ANEXSIA 5/325MG TABLET (HYDROcodone/ACETAMINOPHEN) PO PRN ×2 (00:17→08:02)
[2019-06-03 02:00] VITALS: BP 148/89
[2019-06-03 06:00] VITALS: BP 148/90
[2019-06-03 07:03] LABS: ALT/SGPT 146 U/L (12-78); BILIRUBIN,TOTAL 0.6 MG/DL (0.2-1.0); BLOOD UREA NITROGEN 16 MG/DL (7-18); CALCIUM LEVEL 8.9 MG/DL (8.5-10.1); CARBON DIOXIDE LEVEL 27 MEQ/L (21-32); CHLORIDE LEVEL 102 MEQ/L (98-107); CREATININE FOR GFR 0.71 MG/DL (0.70-1.30); GLOMERULAR FILTRATION RATE > 60.0 (>60); GLUCOSE, FASTING 86 MG/DL (70-100); MAGNESIUM LEVEL 2.1 MG/DL (1.8-2.4); PHOSPHORUS LEVEL 3.8 MG/DL (2.5-4.9); POTASSIUM SERUM 4.6 MEQ/L (3.5-5.1); SODIUM LEVEL 136 MEQ/L (136-145); TOTAL PROTEIN 7.1 GM/DL (6.4-8.2)
[2019-06-03] MEDS: HumaLOG INSULIN (NovoLOG) PER UNIT SC SCH ×2 (07:26→13:01)
[2019-06-03] MEDS: THIAMINE 100 MG TAB PO SCH (07:59)
[2019-06-03] MEDS: NICOTINE 21MG/24HR 1 EA TRANSDERMAL TD SCH (07:59)
[2019-06-03] MEDS: MULTIVITAMINS/MINERALS THERAP 1 TAB PO SCH (07:59)
[2019-06-03] MEDS: FOLIC ACID 1 MG TAB PO SCH (08:00)
[2019-06-03] MEDS: CILOSTAZOL 100 MG TAB (PLETAL) PO SCH (08:00)
[2019-06-03] MEDS: VITAMIN D 1,000 INTERNATIONAL UNITS TABLET PO SCH (08:01)
[2019-06-03] MEDS: ENOXAPARIN 40 MG/0.4 ML SYRINGE (J1650) SC SCH (08:02)
[2019-06-03] MEDS: DOCUSATE SODIUM 100 MG CAP PO SCH (09:00)
[2019-06-03 14:00] VITALS: BP 139/89
[2019-06-03] MEDS: traMADol 50 MG TAB PO PRN (14:27)
--- NOTE | 2019-06-04 21:27 | DS.PDOC ---
Discharge Summary General Date of Admission Jun 01, 2019 at 03:07 Date of Discharge 06/03/19 Attending Physician: NAOMI VANCE MD Discharge Summary PROCEDURES PERFORMED DURING STAY: None. ADMITTING DIAGNOSES: 1. Alcohol withdrawal. DISCHARGE DIAGNOSES: 1. Alcohol withdrawal. COMPLICATIONS/CHIEF COMPLAINT: Alcohol Dependence With Withdrawl Delirium. HISTORY OF PRESENT ILLNESS: 43-year-old male with past medical history of diabetes, hypertension, peripheral vascular disease with admitted for alcohol withdrawal. He was treated with as needed Ativan per [facility] protocol. He was pretty altered and hallucinating upon admission, which improved within 24 hours, patient was clinically at baseline for over 24 hours prior to discharge. Patient without any complaints at this time, comfortable, clinically and hemodynamically stable for discharge home and outpatient follow-up. HOSPITAL COURSE: As above. DISCHARGE MEDICATIONS: Please see below. ALLERGIES: Please see below. PHYSICAL EXAMINATION: VITAL SIGNS: Please see below. GENERAL: No distress HEENT: Normocephalic, atraumatic, moist mucous membranes NECK: Supple CARDIOVASCULAR EXAMINATION: S1, S2, no murmurs RESPIRATORY EXAMINATION: Scattered rhonchi, no wheezing ABDOMINAL EXAMINATION: Soft, mild diffuse tenderness, nondistended, positive bowel sounds EXTREMITIES: L foot w/ partially healed wound on plantar surface SKIN: No rash NEUROLOGICAL EXAMINATION: Alert and oriented 3, no focal deficits PSYCHIATRIC EXAMINATION: Calm and cooperative LABORATORY DATA: Please see below. PROGNOSIS: Fair ACTIVITY: As tolerated. DIET: Cardiac with consistent carbs DISCHARGE PLAN: Follow with PCP and podiatry in 1-2 weeks DISPOSITION: 01 Home, Self-Care. DISCHARGE INSTRUCTIONS: 1. As above. DISCHARGE CONDITION: Stable. TIME SPENT ON DISCHARGE: Greater than 27 minutes. Vital Signs/I&Os Vital Signs Date Time Temp Pulse Resp B/P (MAP) Pulse Ox O2 Delivery O2 Flow Rate FiO2 06/03/19 14:27 18 06/03/19 14:00 97.6 87 139/89 (106) 97 Room Air I&O- Last 24 Hours up to 6 AM 06/04/19 05:59 Intake Total 1075 ml Balance 1075 ml Discharge Medications Scheduled Cholecalciferol (Vitamin D3) (Vitamin D3) 1,000 Unit Tablet, 1,000 UNIT PO DAILY, (Reported) Cilostazol (Cilostazol) 50 Mg Tablet, 50 MG PO BID, (Reported) Folic Acid (Folic Acid) 1 Mg Tablet, 1 MG PO DAILY, (Reported) Insulin Aspart (Novolog Flexpen) 100 Unit/1 Ml Insuln.pen, 1 DOSE SC PC, (Reported) PER SLIDING SCALE Insulin Detemir (Levemir) 100 Unit/1 Ml Vial, 20 UNITS SC QHS, (Reported) Metformin HCl (Metformin HCl) 500 Mg Tablet, 500 MG PO QPM, (Reported) PRESCRIBED BID, PATIENT HAS ONLY BEEN TAKING ONCE A DAY AT [facility]INNER DUE TO DIARRHEA Scheduled PRN Hydrocodone/Acetaminophen (Hydrocodone-Acetamin 5-325 mg) 1 Each Tablet, 1 TAB PO TID PRN for PAIN, (Reported) MDD 4 Tramadol HCl (Tramadol HCl) 50 Mg Tablet, 50 MG PO BID PRN for PAIN, (Reported) Allergies Coded Allergies: No Known Allergies (Unverified , 01/24/19) NAOMI VANCE MD Jun 04, 2019 21:27
== END 2019-06-03 14:35 | disposition home or self-care (01) | DRG 775 ==
LOC: M ED 00:01 → M ED INP 03:07 → M PCU 05:45 → M MSPAV 06-02 16:18
PROVIDERS: ADMIT Internal Medicine; ATTEND Internal Medicine
DX: F10.231 Alcohol dependence with withdrawal delirium (principal); G93.40 Encephalopathy, unspecified; E11.40 Type 2 diabetes mellitus with diabetic neuropathy, unspecified; R65.10 Systemic inflammatory response syndrome (SIRS) of non-infectious origin without acute organ dysfunction; E11.51 Type 2 diabetes mellitus with diabetic peripheral angiopathy without gangrene; I10 Essential (primary) hypertension; Z87.39 Personal history of other diseases of the musculoskeletal system and connective tissue; F17.210 Nicotine dependence, cigarettes, uncomplicated; F12.20 Cannabis dependence, uncomplicated; E87.1 Hypo-osmolality and hyponatremia; F32.9 Major depressive disorder, single episode, unspecified; F41.9 Anxiety disorder, unspecified; E66.9 Obesity, unspecified; Z68.33 Body mass index [BMI] 33.0-33.9, adult; Z89.421 Acquired absence of other right toe(s); Z79.4 Long term (current) use of insulin; Z79.899 Other long term (current) drug therapy

== ENCOUNTER 2019-07-11 14:59 | Inpatient (IN) | payer OTHER ==
[~2019-07-11] VITALS: Ht 180.3 cm; Wt 110.9 kg
[~2019-07-11 14:59] MED LIST changes: +VITA100066 PO
[2019-07-11] MEDS ORDERED: LORazepam 2 MG/ML VIAL (J2060) IM ONE (15:15)
[2019-07-11] MEDS ORDERED: diphenhydrAMINE INJ 50MG/ML VIAL (J1200) IM ONE (15:15)
[2019-07-11 15:50] LABS: HEMATOCRIT 48.4 % (42.0-52.0); HEMOGLOBIN 15.7 g/dl (13.5-17.5); MEAN CORPUSCULAR HEMOGLOBIN 33.3 pg (27.0-33.0); MEAN CORPUSCULAR HGB CONC 32.4 g/dl (32.0-36.5); MEAN CORPUSCULAR VOLUME 102.8 fl (80.0-96.0); PLATELET COUNT, AUTOMATED 131 10^3/uL (150-450); RED BLOOD COUNT 4.71 10^6/uL (4.30-6.10); WHITE BLOOD COUNT 14.7 10^3/uL (4.0-10.0)
[2019-07-11] MEDS ORDERED: HALOPERIDOL 5 MG/ML VIAL (J1630) IM ONE (16:00)
--- NOTE | 2019-07-11 16:25 | REP ---
Clinical: Altered mental status. Comparison: None. Findings: Cardiomegaly is appreciated along with chronic-appearing interstitial changes. No focal consolidation, obvious effusion, or pneumothorax. Skeletal structures intact. Impression: Cardiomegaly and presumed chronic changes. Trace atelectasis cannot be excluded. Electronically Signed by David Youngblood MD 07/11/2019 04:17 P
[2019-07-11 16:31] LABS: ACETAMINOPHEN LEVEL < 2.0 UG/ML (10.0-30.0); ALBUMIN 3.9 GM/DL (3.2-5.2); ALT/SGPT 94 U/L (12-78); BILIRUBIN,DIRECT 0.2 MG/DL (0.0-0.2); BILIRUBIN,TOTAL 0.4 MG/DL (0.2-1.0); BLOOD UREA NITROGEN 10 MG/DL (7-18); CALCIUM LEVEL 8.4 MG/DL (8.5-10.1); CARBON DIOXIDE LEVEL 29 MEQ/L (21-32); CHLORIDE LEVEL 104 MEQ/L (98-107); CK-MB VALUE MASS 1.3 NG/ML (<3.6); CPK CREATINE PHOSPHOKINASE 336 U/L (39-308); CREATININE FOR GFR 0.86 MG/DL (0.70-1.30); GLOMERULAR FILTRATION RATE > 60.0 (>60); GLUCOSE, FASTING 182 MG/DL (70-100); LIPASE 302 U/L (73-393); MB/CK RELATIVE INDEX 0.39 (< OR =4); POTASSIUM SERUM 3.2 MEQ/L (3.5-5.1); SALICYLATE LEVEL 2.8 MG/DL (5.0-30.0); SODIUM LEVEL 144 MEQ/L (136-145); THYROID STIMULATING HORMONE 0.664 uIU/ML (0.358-3.740); TOTAL PROTEIN 7.6 GM/DL (6.4-8.2); TROPONIN I < 0.02 NG/ML (< 0.10)
[2019-07-11] MEDS ORDERED: VANCOMYCIN HCL 1,000 MG in IV FLUID PLACE HOLDER 1 EA IV ONE (17:30)
[2019-07-11] MEDS ORDERED: VANCOMYCIN HCL 1,000 MG, VIAL MATE ADAPTER 1 EACH in D5W 250 ML IV ONE (18:00)
--- NOTE | 2019-07-11 20:09 | ECGEPIP ---
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
[2019-07-11] MEDS ORDERED: NS 1,000 ML IV ONE (20:15)
[2019-07-11] MEDS ORDERED: VITAD1000T PO (22:27)
[2019-07-11] MEDS ORDERED: NORC1TAB7 PO (22:27)
[2019-07-11] MEDS ORDERED: GLUCAGON FOR INJ 1 MG VIAL (J1610) SC PRN (23:00)
[2019-07-11] MEDS ORDERED: GLUCOSE 4 GM CHEW TABLET PO PRN (23:00)
[2019-07-11] MEDS ORDERED: POTASSIUM CHLORIDE 10 MEQ SR TABLET PO ONE (23:00)
[2019-07-11] MEDS ORDERED: SODIUM CHLORIDE 0.9% 1000ML IV SCH (23:00)
[2019-07-11] MEDS ORDERED: traMADol 50 MG TAB PO PRN (23:00)
[2019-07-11] MEDS ORDERED: LORazepam 2 MG TAB PO PRN (23:00)
[2019-07-11] MEDS ORDERED: DEXTROSE 50% 50 ML SYRINGE IV PRN (23:00)
--- NOTE | 2019-07-11 23:21 | HPEPDOC ---
General Date of Admission 07/11/19 Date of Service: Jul 11, 2019 Chief Complaint The patient is a 43-year-old male admitted with a reason for visit of Etoh Intoxication. Exam Limitations: Intoxication Timing/Duration: 24 hours Severity: Moderate Associated Symptoms: Weakness History of Present Illness Patient is 43 years old male with past medical history of osteomyelitis / status post right hallux amputation & left hallux wound debridement, anxiety/depression, chronic hypertension, PVD presented hospital with EtOH intoxication. Patient did not provide the history of present illness due to alcohol intoxication and drowsiness. In emergency room patient was found to have elevated white blood count of 14.7, EtOH level 0.4 and tachycardia. Chest x-ray was negative for acute infiltrate in the lung field, shows cardiomegaly. Also patient was found to have unhealed left distal foot ulcer stage III 3-4 cm with purulent discharge. Home Medications Scheduled Cholecalciferol (Vitamin D3) (Vitamin D3) 1,000 Unit Tablet, 1,000 UNITS PO DAILY, (Reported) Cilostazol (Cilostazol) 50 Mg Tablet, 50 MG PO BID, (Reported) Insulin Aspart (Novolog Flexpen) 100 Unit/1 Ml Insuln.pen, 1 DOSE SC PC, (Reported) PER SLIDING SCALE Insulin Detemir (Levemir) 100 Unit/1 Ml Vial, 20 UNITS SC QHS, (Reported) Scheduled PRN Hydrocodone/Acetaminophen ([place] 5-325 Tablet) 1 Each Tablet, 1 TAB PO BID PRN for PAIN, (Reported) Tramadol HCl (Tramadol HCl) 50 Mg Tablet, 50 MG PO BID PRN for PAIN, (Reported) Allergies Coded Allergies: No Known Allergies (Unverified , 01/24/19) Past Medical History Medical History IDDM with neuropathy Anxiety/depression Chronic hypertension. PVD History of vitamin D deficiency Surgical History History of osteomyelitis / status post right hallux amputation & left hallux wound debridement Family History Patient unable to provide family history, he was adopted Social History * Smoker: current smoker Alcohol: heavy Drugs: marijuana A-FIB/CHADSVASC A-FIB History Current/History of A-Fib/PAF?: No Current PO Anticoag Therapy: No Review of Systems Constitutional: Reports: Chills, Malaise; Denies: Fever Eyes: Denies: Pain ENT: Denies: Head Aches Skin: Reports: Breakdown (left foot) Pulmonary: Reports: Dyspnea Cardiovascular: Denies: Chest Pain Gastrointestinal: Denies: Nausea Genitourinary: Denies: Dysuria, Frequency Hematologic: Denies: Bruising Endocrine: Denies: Polydipsia Musculoskeletal: Reports: Leg Pain, Foot Pain Neurological: Denies: Weakness, Change in speech Psych: Reports: Mood Normal Physical Examination General Exam: Positive: Mild Distress, Other (drowsy); Negative: Alert Eye Exam: Positive: PERRLA, Conjunctiva & lids normal ENT Exam: Positive: Atraumatic Neck Exam: Positive: Supple; Negative: JVD Chest Exam: Positive: Diminished Heart Exam: Positive: Rate Normal Telemetry: Positive: No significant arrhythmia Abdomen Exam: Positive: Normal bowel sounds, Hernia (umbilical) Extremity Exam: Positive: Other (3-4 centimeters unhealed wound of distal part of the left foot, stage III) Skin Exam: Positive: Nl turgor and temperature Neuro Exam: Positive: Strength at 5/5 X4 ext, Cranial Nerves 3-12 NL Psych Exam: Positive: Other (somnolent) Vital Signs Vital Signs Date Time Temp Pulse Resp B/P (MAP) Pulse Ox O2 Delivery O2 Flow Rate FiO2 07/11/19 22:37 123 167/94 (118) 97 Nasal Cannula 3.0 07/11/19 19:47 98.6 07/11/19 17:45 16 Laboratory Data Labs 24H Laboratory Tests 2 07/11/19 15:15: Bedside Glucose (Misc Panel) 184H 07/11/19 15:34: Nucleated Red Blood Cells % (auto) 0.0, Anion Gap 11, Glomerular Filtration Rate > 60.0, Calcium Level 8.4L, Total Bilirubin 0.4, Direct Bilirubin 0.2, Aspartate Amino Transf (AST/SGOT) 113H, Alanine Aminotransferase (ALT/SGPT) 94H, Alkaline Phosphatase 84, Total Creatine Kinase 336H, Creatine Kinase MB 1.3, Creatine Kinase MB Relative Index 0.39, Troponin I < 0.02, Total Protein 7.6, Albumin 3.9, Albumin/Globulin Ratio 1.05, Lipase 302, Thyroid Stimulating Hormone (TSH) 0.664, Salicylates Level 2.8L, Acetaminophen Level < 2.0L, Ethyl Alcohol Level 0.450H CBC/BMP Laboratory Tests 07/11/19 15:34 Microbiology Microbiology 07/11/19 Gram Stain, Received Pending 07/11/19 Wound Culture, Received Pending Assessment/Plan Patient is 43 years old male with past medical history of osteomyelitis / status post right hallux amputation & left hallux wound debridement, anxiety/depression, chronic hypertension, PVD presented hospital with EtOH intoxication. Patient did not provide the history of present illness due to alcohol intoxication and drowsiness. In emergency room patient was found to have elevated white blood count of 14.7, EtOH level 0.4 and tachycardia. Chest x-ray was negative for acute infiltrate in the lung field, shows cardiomegaly. Also patient was found to have unhealed left distal foot ulcer stage III 3-4 cm with purulent discharge. Problems (1) Sepsis Status: Acute Problem Text: Secondary to possible osteomyelitis of the left foot Patient has leukocytosis and tachycardia Vancomycin IV, meropenem IV Blood culture, lactic acid Wound culture IV fluid (2) Osteomyelitis Status: Acute Problem Text: Most likely patient developed left foot osteomyelitis. 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
[2019-07-11 23:37] LABS: C REACTIVE PROTEIN QUANTITATIV 0.41 MG/DL (0.00-0.30)
[2019-07-12] VITALS (9 sets, daily range): BP systolic 140–180; BP diastolic 71–99
[2019-07-12] MEDS ORDERED: ACETAMINOPHEN TAB 650MG DOSE (2X325MG) PO SCH
[2019-07-12 00:33] LABS: ERYTHROCYTE SEDIMENTATION RATE 11 mm/hr (0-15)
[2019-07-12] MEDS: THIAMINE 100 MG TAB PO SCH ×3 (01:09→20:45)
[2019-07-12] MEDS: NS 1,000 ML IV SCH ×4 (01:10→23:03)
[2019-07-12] MEDS: MEROPENEM INJ 1 GM in IV 1 EA IV SCH ×3 (01:10→16:12)
[2019-07-12] MEDS: HumaLOG INSULIN (NovoLOG) PER UNIT SC SCH ×5 (01:11→20:14)
[2019-07-12] MEDS: LEVEMIR (INSULIN DETEMIR) 1 UNITS/0.01ML SC SCH ×2 (01:11→20:46)
--- NOTE | 2019-07-12 01:12 | PHACANCOPD ---
PHARMACY VANCOMYCIN DOSING Pt Demographics Demographics Patient Age:43 , Weight:113.600 , Gender: male Adjusted Body Weight Date: 07/12/19, Adjusted Body Weight: Kg Events Past 24 Hours Events Past 24 Hours: NO: Dialysis, Diuretic Therapy, Change in CrCl, Fever, Elevation in WBC, Pending Diagnostics, Pending Procedures, Other Vancomycin Vancomycin Target Ranges: 15-20 mcg/ml Vancomycin Load Y/N: Yes Load Dose Date Time Vancomycin Load Dose: 2000mg Date: 07-12 Time: 0200 Vancomycin Dose Date: 07/12/19. Current Vancomycin Dose: [1000mg q8h] Intermittent Dosing?: No Labs Labs Item Value Date Time White Blood Count 14.7 10^3/uL H 07/11/19 1534 Glomerular Filtration Rate > 60.0 07/11/19 1534 Creatinine 0.86 MG/DL 07/11/19 1534 Blood Urea Nitrogen 10 MG/DL 07/11/19 1534 Vital Signs Label Value Date Time Patient Temperature 99.7 degrees F 07/12/19 0001 Temperature Source Oral 07/12/19 0001 Micro Microbiology 07/11/19 Gram Stain, Received Pending 07/11/19 Wound Culture, Received Pending Creatinine Clearance Date:07/12/19. Creatinine Clearance: [~100]. Pending Labs Trough 07-12 @1700 Assessment and Plan Maintaining Current Dose?: Yes Reason for dose change: No Dose Change Pharmacist Note Pharmacist Note Date: 07/12/19. Pharmacist note:Will monitor and make adjustments as needed. [facility] Jul 12, 2019 01:12
[2019-07-12] MEDS ORDERED: NS 1,000 ML IV ONE (01:30)
[2019-07-12] MEDS ORDERED: NS 500 ML IV ONE (01:30)
[2019-07-12] MEDS ORDERED: LABETALOL HCL 100 MG/20 ML VIAL IV PRN (02:30)
[2019-07-12] MEDS ORDERED: VANCOMYCIN HCL 1,000 MG, VIAL MATE ADAPTER 1 EACH in D5W 250 ML IV ONE (03:00)
[2019-07-12] MEDS: VANCOMYCIN HCL 1,000 MG, VIAL MATE ADAPTER 1 EACH in D5W 250 ML IV SCH ×4 (03:41→23:03)
[2019-07-12 03:51] LABS: HEMATOCRIT 38.4 % (42.0-52.0); MEAN CORPUSCULAR HEMOGLOBIN 33.1 pg (27.0-33.0); MEAN CORPUSCULAR HGB CONC 32.8 g/dl (32.0-36.5); MEAN CORPUSCULAR VOLUME 100.8 fl (80.0-96.0); RED BLOOD COUNT 3.81 10^6/uL (4.30-6.10); WHITE BLOOD COUNT 11.2 10^3/uL (4.0-10.0)
[2019-07-12 04:02] LABS: BLOOD UREA NITROGEN 8 MG/DL (7-18); CALCIUM LEVEL 7.3 MG/DL (8.5-10.1); CARBON DIOXIDE LEVEL 23 MEQ/L (21-32); CHLORIDE LEVEL 106 MEQ/L (98-107); CREATININE FOR GFR 0.61 MG/DL (0.70-1.30); GLOMERULAR FILTRATION RATE > 60.0 (>60); GLUCOSE, FASTING 172 MG/DL (70-100); MAGNESIUM LEVEL 1.2 MG/DL (1.8-2.4); POTASSIUM SERUM 3.2 MEQ/L (3.5-5.1); SODIUM LEVEL 138 MEQ/L (136-145)
[2019-07-12 04:45] LABS: HEMOGLOBIN 12.6 g/dl (13.5-17.5); PLATELET COUNT, AUTOMATED 93 10^3/uL (150-450)
--- NOTE | 2019-07-12 08:05 | REP ---
Clinical: Open wound. Technique: Portable AP and lateral views of the left foot. Findings: Evidence of prior amputation at the first MTP joint. Overlying soft tissue swelling. No subcutaneous emphysema or foreign body noted. The osseous structures demonstrate age-related changes. Impression: Soft tissue swelling. Prior amputation. No findings to definitively diagnose osteomyelitis. Electronically Signed by David Youngblood MD 07/12/2019 07:56 A
[2019-07-12] MEDS: MULTIVITAMINS/MINERALS THERAP 1 TAB PO SCH (08:08)
[2019-07-12] MEDS: HEPARIN SOD (PORCINE) 5000 UNITS/ML VIAL (J1644 PER 1000UNITS) SC SCH ×2 (08:08→20:45)
[2019-07-12] MEDS: FOLIC ACID 1 MG TAB PO SCH (08:08)
[2019-07-12] MEDS: ACETAMINOPHEN TAB 650MG DOSE (2X325MG) PO PRN (08:25)
[2019-07-12] MEDS: POTASSIUM CHLORIDE 10 MEQ SR TABLET PO SCH ×2 (09:25→20:45)
[2019-07-12] MEDS: MAG SULF 1GM/100ML (MAG RUN) 1 GM in IV 1 EA IV SCH ×3 (09:25→13:16)
--- NOTE | 2019-07-12 17:56 | CR ---
DATE OF CONSULTATION: 07/11/2019 CONSULTATION REPORT FOR: Dr. Lala REASON FOR CONSULTATION: Regarding a left diabetic Paige grade 3 foot wound. HISTORY OF PRESENT ILLNESS: A 43-year-old alcoholic male admitted intoxicated, found to have a wound on the left plantar surface status post previously amputated left first digit (great toe). The patient's liver function studies and hemoglobin A1c within normal limits. Hemoglobin 12.6, sedimentation rate 11, C-reactive protein not significantly elevated, and a glomerular filtration rate (GFR) of 60. The patient has good sensation when asked. It is unclear what type of foot wear he is using. The wound base shows fibrin slough without deep structures present and there is a rim of callus formation involving the periwound. The dorsal aspect of the foot appears erythematous and is consistent with cellulitis. The patient is on imipenem and vancomycin and a culture of the wound is pending. It should be noted that to obtain an accurate culture the wound should be debrided first and it appears that it was not. Our dressing recommendation and treatment is to clean the wound with Vashe, cover it with Hydrofera Blue, and secure this with a Kerlix wrap. Tubigrip stocking to decompress the left lower extremity which appears edematous and mild Trendelenburg position of the bed are indicated. An arterial ultrasound should be performed to assess the vascularity of his left lower extremity. Adequate treatment for this wound is offloading with a total contact cast. The patient's compliance is a major issue with this type of treatment in that the cast has to be changed on a regular weekly basis and with an alcoholic history, this poses a significant issue. The patient has a large umbilical hernia and his abdomen appears distended which raises the question of abdominal ascites. However, the bilirubin and liver function studies are within normal limits. A prothrombin time and a partial thromboplastin time (PTT) coagulation study should be also included on the patient's next laboratory draws, as this is an indirect indication of liver status and function. MRI is pending regarding the evaluation of the bony structures. According to the patient, he is followed weekly by Dr. Varela and should continue to do so. If I can be of any help, please feel free to reconsult. AMBROCIO
--- NOTE | 2019-07-12 19:44 | IPNPDOC ---
Subjective Date Seen The patient was seen on 07/12/19. Subjective Chief Complaint/HPI Ankit is lying in bed. No active DTs at this time. left foot chronic wound is not draining any pus, only as mild erythema, and soft tissue swelling. Objective Physical Examination General Exam: Positive: Alert, Cooperative, No Acute Distress Eye Exam: Positive: PERRLA ENT Exam: Positive: Atraumatic, Mucous membr. moist/pink Neck Exam: Positive: Supple; Negative: JVD Chest Exam: Positive: Diminished Heart Exam: Positive: Rate Normal Telemetry: Positive: No significant arrhythmia Abdomen Exam: Positive: Normal bowel sounds, Soft; Negative: Tenderness Extremity Exam: Positive: Other (3-4 centimeters unhealed wound of distal part of the left foot, stage III) Skin Exam: Positive: Nl turgor and temperature Neuro Exam: Positive: Strength at 5/5 X4 ext, Cranial Nerves 3-12 NL Psych Exam: Positive: Mental status NL, Other (somnolent) Assessment /Plan Assessment # Sepsis likely due to left diabetic foot infection - continue meropenem + vanco - podiatry consulted - MRI foot pending - ESR normal so low suspicion for osteomyelitis, but will await imaging - wound cx are pending # Acute ETOH intoxication - continue ciwa scale # Hypokalemia # Hypomagnesia - ordered replacement - repeat levels in am # IDDM - continue levemir + SS coverage, adjust for BG extreme values. Plan/VTE VTE Prophylaxis Ordered?: Yes (hep sq bid) VTE Exclusion Mechanical Proph: N/A:VTE Prophy Ordered VTE Exclusion Pharmacological: N/A:VTE Prophy Ordered VS, I&O, 24H, Fishbone Vital Signs/I&O Vital Signs Date Time Temp Pulse Resp B/P (MAP) Pulse Ox O2 Delivery O2 Flow Rate FiO2 07/12/19 16:01 104 142/75 07/12/19 16:00 98.2 12 94 Room Air 07/11/19 22:37 3.0 I&O- Last 24 Hours up to 6 AM 07/12/19 06:00 Intake Total 4570 ml Output Total 400 ml Balance 4170 ml Laboratory Data 24H LABS Laboratory Tests 2 07/12/19 00:31: Bedside Glucose (Misc Panel) 262H 07/12/19 03:32: Nucleated Red Blood Cells % (auto) 0.0, Immature Platelet Fraction 1.5, Anion Gap 9, Glomerular Filtration Rate > 60.0, Calcium Level 7.3L, Magnesium Level 1.2L 07/12/19 03:33: Lactic Acid Followup at 4 Hours 2.3*H 07/12/19 07:44: Bedside Glucose (Misc Panel) 153H 07/12/19 12:26: Bedside Glucose (Misc Panel) 178H 07/12/19 17:31: Vancomycin Level Trough 6.0L 07/12/19 18:07: Bedside Glucose (Misc Panel) 96 CBC/BMP Laboratory Tests 07/12/19 03:32 Microbiology Microbiology 07/11/19 Gram Stain - Final, Resulted 07/11/19 Wound Culture, Resulted Pending NAMRATA LEYVA MD Jul 12, 2019 19:44
[2019-07-13] VITALS (8 sets, daily range): BP systolic 133–148; BP diastolic 76–95
[2019-07-13] MEDS: MEROPENEM INJ 1 GM in IV 1 EA IV SCH ×4 (01:13→23:20)
[2019-07-13 04:00] LABS: HEMATOCRIT 41.7 % (42.0-52.0); HEMOGLOBIN 13.7 g/dl (13.5-17.5); MEAN CORPUSCULAR HEMOGLOBIN 33.3 pg (27.0-33.0); MEAN CORPUSCULAR HGB CONC 32.9 g/dl (32.0-36.5); MEAN CORPUSCULAR VOLUME 101.5 fl (80.0-96.0); RED BLOOD COUNT 4.11 10^6/uL (4.30-6.10); WHITE BLOOD COUNT 10.6 10^3/uL (4.0-10.0)
[2019-07-13 04:06] LABS: PLATELET COUNT, AUTOMATED 98 10^3/uL (150-450)
[2019-07-13 04:20] LABS: BLOOD UREA NITROGEN 4 MG/DL (7-18); CARBON DIOXIDE LEVEL 31 MEQ/L (21-32); CHLORIDE LEVEL 96 MEQ/L (98-107); CREATININE FOR GFR 0.71 MG/DL (0.70-1.30); GLOMERULAR FILTRATION RATE > 60.0 (>60); GLUCOSE, FASTING 99 MG/DL (70-100); MAGNESIUM LEVEL 1.8 MG/DL (1.8-2.4); POTASSIUM SERUM 3.1 MEQ/L (3.5-5.1); SODIUM LEVEL 133 MEQ/L (136-145)
[2019-07-13] MEDS ORDERED: POTASSIUM CHLORIDE 10 MEQ SR TABLET PO ONE (04:30)
[2019-07-13] MEDS: VANCOMYCIN HCL 1,000 MG, VIAL MATE ADAPTER 1 EACH in D5W 250 ML IV SCH ×2 (06:51→15:25)
--- NOTE | 2019-07-13 07:04 | ECHO ---
DATE OF PROCEDURE: 07/12/2019 DATE OF : [birth year] AGE: 43 GENDER: Male HEIGHT: 71 inches WEIGHT: 251 pounds BODY SURFACE AREA: 2.32 meters squared Inpatient PCU, room 3224. REFERRING PHYSICIAN: Willy Lala MD INDICATIONS: Sepsis. Alcohol withdrawal. MEASUREMENTS 2-D MEASUREMENTS: RV - 3.7 cm LV - 5.1 cm Septum 1.1 cm Posterior wall 1.1 cm Aortic root 3.3 cm LA - 4.0 cm LVEF 75% DOPPLER MEASUREMENTS: AV - 1.43 m/s LVOT - 1.3 m/s LVOT diameter 2.0 cm MV-E 99, A 67, E/A ratio 1.5 Early mitral deceleration time 130 ms E prime medial 9.9, A prime medial 14.3, A prime lateral 8.8 Average E/E prime ratio 10.6/PCWP 14 mmHg PV - 0.8 m/s Pulmonary artery acceleration time 116 ms PASP 30 mmHg IVC - 1.6 cm COMMENTS: Normal sinus rhythm without intraventricular conduction disturbance. M-mode and two-dimensional echocardiography was performed with pulsed, continuous wave, color flow and tissue Doppler studies. Normal left ventricular size, wall thickness and hyperkinetic wall motion. Borderline dilated left atrium with currently normal Doppler assessment of LV diastolic function and mean left atrial pressure. Normal right heart chamber sizes and motion with Doppler evidence of pulmonary arterial pressure upper limits of normal. Normal IVC size and collapse against an elevated central venous pressure. Normal appearing and functioning valvular structures. No apparent intracardiac mass or pericardial effusion.
[2019-07-13] MEDS: HumaLOG INSULIN (NovoLOG) PER UNIT SC SCH ×4 (07:30→21:00)
[2019-07-13] MEDS: HEPARIN SOD (PORCINE) 5000 UNITS/ML VIAL (J1644 PER 1000UNITS) SC SCH ×2 (09:00→21:00)
[2019-07-13] MEDS: POTASSIUM CHLORIDE 10 MEQ SR TABLET PO SCH (09:49)
[2019-07-13] MEDS: FOLIC ACID 1 MG TAB PO SCH (09:49)
[2019-07-13] MEDS: MULTIVITAMINS/MINERALS THERAP 1 TAB PO SCH (09:49)
[2019-07-13] MEDS: THIAMINE 100 MG TAB PO SCH ×2 (09:49→21:39)
[2019-07-13] MEDS: KCL 20MEQ in NS 1000ML 1,000 ML IV SCH ×2 (09:50→23:20)
[2019-07-13] MEDS ORDERED: PROHANCE 279.3MG/ML 5ML VIAL (A9576) As Ordered ONE (12:42)
[2019-07-13] MEDS ORDERED: PROHANCE 279.3MG/ML 15ML VIAL (A9576) As Ordered ONE (12:43)
--- NOTE | 2019-07-13 14:58 | REP ---
MRI left foot without with IV gadolinium: History: Osteomyelitis. Recent amputation left first toe. Comparison radiographs July 11, 2019. Technique: Axial, coronal and sagittal imaging planes are utilized. T1 and T2-weighted scans are included with and without fat saturation. Gadolinium enhancement dose is 20 mL of intravenous ProHance. MRI findings: There is T2 marrow edema in the mid and distal first metatarsal. There is corresponding low T1 signal intensity in the diaphysis and distal portion of the first metatarsal. Similarly, there are high T2 and low T1 signal intensity changes throughout the proximal phalanx of the fourth toe. Cortical and medullary bone signal intensity are otherwise normal. These changes are suspicious for osteomyelitis in these two locations in the left foot. The great toe has been amputated and there is soft tissue swelling surrounding the amputation site. There is a defect in the skin overlying the distal end of the first metatarsal along its volar and medial aspect consistent with a sinus tract. No soft tissue abscess is seen. Postcontrast imaging shows contrast enhancement in the distal diaphysis and distal end of the first metatarsal and throughout the proximal phalanx of the fourth toe. No definite bony erosion. Impression: Findings suspicious for osteomyelitis involving the distal half of the first metatarsal and the proximal phalanx of the fourth toe. Electronically Signed by Myles Crowell MD 07/13/2019 05:14 P
--- NOTE | 2019-07-13 15:30 | REP ---
Clinical: Left lower extremity nonhealing wound. Technique: Real time martins scale and color Doppler evaluation of the left lower extremity arterial vasculature using linear high frequency transducer. Findings: The ankle to brachial index of the left lower extremity is 1.14. Color Doppler interrogation demonstrates mild scattered atheromatous plaquing without stenosis or occlusion. Normal triphasic arterial wave forms are visualized. PSV(cm/sec) LEFT Common femoral artery 72.4 Profunda femoris artery 59.5 Proximal superficial femoral artery 82.7 Mid superficial femoral artery 104 Distal superficial femoral artery 77.8 Popliteal artery 61.6 Proximal SEBASTIAN 40.6 Tibioperoneal trunk 58.0 Proximal SURVEYOR HELPER 86.4 Distal SURVEYOR HELPER 101 Distal SEBASTIAN 45.2 Impression: Mild scattered atheromatous plaquing without stenosis or occlusion. Electronically Signed by David Youngblood MD 07/13/2019 03:20 P
--- NOTE | 2019-07-13 16:12 | IPNPDOC ---
Subjective Date Seen The patient was seen on 07/13/19. Subjective Chief Complaint/HPI Ankit is well this morning. No active DTs. Afebrile. Left foot is less red Objective Physical Examination General Exam: Positive: Alert, No Acute Distress Eye Exam: Positive: PERRLA ENT Exam: Positive: Pharynx Normal Neck Exam: Positive: Supple; Negative: JVD Chest Exam: Positive: Diminished Heart Exam: Positive: Rate Normal Abdomen Exam: Positive: Normal bowel sounds, Soft; Negative: Tenderness Extremity Exam: Positive: Other (3-4 centimeters unhealed wound of distal part of the left foot, stage III) Skin Exam: Positive: Nl turgor and temperature; Negative: Rash Psych Exam: Positive: Mental status NL, Other (somnolent) Assessment /Plan Assessment # Sepsis likely due to left diabetic foot infection - continue meropenem + vanco - podiatry consulted - MRI left foot c/w osteomyelitis - wound cx are pending # Acute ETOH intoxication - continue ciwa scale # Hypokalemia # Hypomagnesia - add IV KCL to fluids - mag levels are corrected # IDDM - continue levemir + SS coverage, adjust for BG extreme values. Dispo: transfer to med/surg floor Plan/VTE VTE Prophylaxis Ordered?: Yes (hep sq bid) VTE Exclusion Mechanical Proph: N/A:VTE Prophy Ordered VTE Exclusion Pharmacological: N/A:VTE Prophy Ordered VS, I&O, 24H, Fishbone Vital Signs/I&O Vital Signs Date Time Temp Pulse Resp B/P (MAP) Pulse Ox O2 Delivery O2 Flow Rate FiO2 07/13/19 12:00 99 148/91 07/13/19 12:00 97.8 22 96 Room Air 07/11/19 22:37 3.0 I&O- Last 24 Hours up to 6 AM 07/13/19 06:00 Intake Total 4255 ml Output Total 1250 ml Balance 3005 ml Laboratory Data 24H LABS Laboratory Tests 2 07/12/19 17:31: Vancomycin Level Trough 6.0L 07/12/19 18:07: Bedside Glucose (Misc Panel) 96 07/12/19 20:12: Bedside Glucose (Misc Panel) 156H 07/13/19 03:19: Bedside Glucose (Misc Panel) 27*L 07/13/19 03:35: Bedside Glucose (Misc Panel) 149H 07/13/19 03:46: Nucleated Red Blood Cells % (auto) 0.0, Immature Platelet Fraction 2.9, Bedside Glucose Confirm (Misc) 99, Anion Gap 6L, Glomerular Filtration Rate > 60.0, Lactic Acid Level 2.4*H, Calcium Level 8.0L, Magnesium Level 1.8 07/13/19 03:56: Bedside Glucose (Misc Panel) 130H 07/13/19 04:35: Bedside Glucose (Misc Panel) 115H 07/13/19 06:58: Bedside Glucose (Misc Panel) 106H 07/13/19 08:06: Lactic Acid Followup at 4 Hours 1.4 07/13/19 13:13: Bedside Glucose (Misc Panel) 126H CBC/BMP Laboratory Tests 07/13/19 03:46 Microbiology Microbiology 07/11/19 Gram Stain - Final, Resulted 07/11/19 Wound Culture - Preliminary, Resulted Streptococcus Group C Enterobacter Cloacae Complex Staphylococcus Aureus NAMRATA LEYVA MD Jul 13, 2019 16:12
--- NOTE | 2019-07-13 18:55 | CR ---
DATE OF CONSULTATION: 07/13/2019 REASON FOR CONSULTATION: Left foot ulceration and infection. Ankit Taylor is a patient well known to me who has been following recently with wound on his left foot status post Hallux amputation. He has longstanding ulcerations in part due to intermittent compliance and irregularity in keeping appointments as well as keeping wounds dressed. He was admitted to the hospital on 07/11/2019 due to alcohol intoxication and he was also found to have elevated glucose and findings consistent with infection of his left foot. PAST MEDICAL HISTORY: Includes diabetes with neuropathy, anxiety, chronic hypertension, history of alcohol abuse. PAST SURGICAL HISTORY: Includes bilateral Hallux amputations. ALLERGIES: No known drug allergies. SOCIAL HISTORY: Current smoker, heavy alcohol usage, and also uses marijuana. REVIEW OF SYSTEMS: He denies fever or chills. He has had a low grade fever while in hospital, maximum temperature (T-max) is 101.4. Labs are reviewed. White blood cell count on admission was 14.7, it has improved to 10.6. ESR on admission was 11. LOWER EXTREMITY EXAMINATION: At the amputation site the wound actually has somewhat improved since last seen in my office. There is no significant purulence. There is erythema and edema to the left foot extending from this ulceration site. A wound swab culture was taken which grows group C Streptococcus, Enterobacter, and Staphylococcus aureus. Sensitivity report for the Staphylococcus appears to be pending. X-rays were ordered. These show expected postoperative findings without further signs of osteomyelitis or soft tissue emphysema. MRI and arterial studies have been ordered. ASSESSMENT: This is a 43-year-old diabetic male with left foot ulceration and cellulitis. PLAN: Continue empiric antibiotics. Await full sensitivity report for tapering. Continue wound care per Dr. Romero's recommendations. Appreciate consultation. Once patient is otherwise stable, he can be discharged on oral antibiotics with 2 weeks duration with followup with myself in office next week.
[2019-07-13] MEDS: LEVEMIR (INSULIN DETEMIR) 1 UNITS/0.01ML SC SCH (21:40)
[2019-07-14] MEDS ORDERED: VANCOMYCIN HCL 1,000 MG, VIAL MATE ADAPTER 1 EACH in D5W 250 ML IV SCH (01:00)
[2019-07-14] MEDS ORDERED: VANCOMYCIN HCL 500 MG in D5W MINI-BAG PLUS 100 ML IV SCH (02:00)
[2019-07-14] MEDS: KCL 20MEQ in NS 1000ML 1,000 ML IV SCH (03:47)
[2019-07-14 06:00] VITALS: BP 142/90
[2019-07-14] MEDS: HumaLOG INSULIN (NovoLOG) PER UNIT SC SCH ×4 (07:30→21:00)
[2019-07-14] MEDS: THIAMINE 100 MG TAB PO SCH (08:03)
[2019-07-14] MEDS: MEROPENEM INJ 1 GM in IV 1 EA IV SCH (08:03)
[2019-07-14] MEDS: MULTIVITAMINS/MINERALS THERAP 1 TAB PO SCH (08:03)
[2019-07-14] MEDS: FOLIC ACID 1 MG TAB PO SCH (08:03)
--- NOTE | 2019-07-14 10:14 | IPNPDOC ---
Subjective Date Seen The patient was seen on 07/14/19. Subjective Chief Complaint/HPI Ankit is fine this morning, afebrile. Objective Physical Examination General Exam: Positive: Alert, No Acute Distress Eye Exam: Positive: PERRLA ENT Exam: Positive: Pharynx Normal Neck Exam: Positive: Supple; Negative: JVD Chest Exam: Positive: Diminished Heart Exam: Positive: Rate Normal Abdomen Exam: Positive: Normal bowel sounds, Soft; Negative: Tenderness Extremity Exam: Positive: Other (3-4 centimeters unhealed wound of distal part of the left foot, stage III) Skin Exam: Positive: Nl turgor and temperature; Negative: Rash Psych Exam: Positive: Mental status NL, Other (somnolent) Assessment /Plan Assessment # Sepsis likely due to left diabetic foot infection with poly microbial organisms - change to doxy + ceftin x 2 weeks - D/w Dr. Varela MRI of left foot does not indicate ostemyelitis, ESR 7 - home today - f/u with Dr. Varela in 2 weeks # Acute ETOH intoxication - continue ciwa scale # Hypokalemia # Hypomagnesia - add IV KCL to fluids - mag levels are corrected # IDDM - continue levemir + SS coverage, adjust for BG extreme values. Dispo: discharge home Plan/VTE VTE Prophylaxis Ordered?: Yes (hep sq bid) VTE Exclusion Mechanical Proph: N/A:VTE Prophy Ordered VTE Exclusion Pharmacological: N/A:VTE Prophy Ordered VS, I&O, 24H, Fishbone Vital Signs/I&O Vital Signs Date Time Temp Pulse Resp B/P (MAP) Pulse Ox O2 Delivery O2 Flow Rate FiO2 07/14/19 06:00 98.4 78 19 142/90 (107) 96 07/13/19 22:00 Room Air 07/11/19 22:37 3.0 I&O- Last 24 Hours up to 6 AM 07/14/19 06:00 Intake Total 2110 ml Output Total 1450 ml Balance 660 ml Laboratory Data 24H LABS Laboratory Tests 2 07/13/19 13:13: Bedside Glucose (Misc Panel) 126H 07/13/19 16:13: Bedside Glucose (Misc Panel) 242H 07/13/19 20:17: Bedside Glucose (Misc Panel) 181H 07/13/19 21:58: Vancomycin Level Trough 8.0L 07/14/19 05:38: Bedside Glucose (Misc Panel) 79 Microbiology Microbiology 07/11/19 Gram Stain - Final, Complete 07/11/19 Wound Culture - Final, Complete Streptococcus Group C Enterobacter Cloacae Complex Staph.aureus Methicillin Resis NAMRATA LEYVA MD Jul 14, 2019 10:14
[2019-07-14] MEDS ORDERED: DOXY100T PO (10:18)
[2019-07-14] MEDS ORDERED: CEFU50TA PO (10:18)
[2019-07-14] MEDS: DOXYCYCLINE HYCLATE 100 MG TAB PO SCH ×2 (10:22→21:24)
[2019-07-14] MEDS: CEFUROXIME 500 MG TAB PO SCH ×2 (10:22→21:24)
[2019-07-14 14:00] VITALS: BP 139/81
[2019-07-14] MEDS: LEVEMIR (INSULIN DETEMIR) 1 UNITS/0.01ML SC SCH (21:24)
[2019-07-14 22:00] VITALS: BP 154/98
[2019-07-15 06:00] VITALS: BP 142/99
[2019-07-15 07:16] LABS: BLOOD UREA NITROGEN 14 MG/DL (7-18); CALCIUM LEVEL 8.5 MG/DL (8.5-10.1); CARBON DIOXIDE LEVEL 25 MEQ/L (21-32); CHLORIDE LEVEL 106 MEQ/L (98-107); CREATININE FOR GFR 0.52 MG/DL (0.70-1.30); GLOMERULAR FILTRATION RATE > 60.0 (>60); GLUCOSE, FASTING 83 MG/DL (70-100); POTASSIUM SERUM 3.4 MEQ/L (3.5-5.1); SODIUM LEVEL 138 MEQ/L (136-145)
[2019-07-15] MEDS: HumaLOG INSULIN (NovoLOG) PER UNIT SC SCH ×4 (07:30→20:54)
[2019-07-15] MEDS ORDERED: POTASSIUM CHLORIDE 10 MEQ SR TABLET PO ONE (09:00)
[2019-07-15] MEDS: FOLIC ACID 1 MG TAB PO SCH (09:36)
[2019-07-15] MEDS: DOXYCYCLINE HYCLATE 100 MG TAB PO SCH ×2 (09:36→20:52)
[2019-07-15] MEDS: MULTIVITAMINS/MINERALS THERAP 1 TAB PO SCH (09:36)
[2019-07-15] MEDS: CEFUROXIME 500 MG TAB PO SCH ×2 (09:36→20:52)
[2019-07-15 14:00] VITALS: BP 157/97
--- NOTE | 2019-07-15 14:51 | IPNPDOC ---
Subjective Date Seen The patient was seen on 07/15/19. Subjective Chief Complaint/HPI Ankit is in bed. No acute problems this morning. Objective Physical Examination General Exam: Positive: Alert, No Acute Distress Eye Exam: Positive: PERRLA ENT Exam: Positive: Pharynx Normal Neck Exam: Positive: Supple; Negative: JVD Chest Exam: Positive: Diminished Heart Exam: Positive: Rate Normal Abdomen Exam: Positive: Normal bowel sounds, Soft; Negative: Tenderness Extremity Exam: Positive: Other (3-4 centimeters unhealed wound of distal part of the left foot, stage III) Skin Exam: Positive: Nl turgor and temperature; Negative: Rash Psych Exam: Positive: Mental status NL, Other (somnolent) Assessment /Plan Assessment # Sepsis likely due to left diabetic foot infection with poly microbial organisms (mrsa, strep, enterobacter) - doxy + ceftin x 2 weeks - D/w Dr. Varela MRI of left foot does not indicate osteomyelitis, ESR 7 - home once cleared by PT vs. rehab - f/u with Dr. Varela in 2 weeks # Acute ETOH intoxication - continue ciwa scale # Hypokalemia # Hypomagnesia - K dur this am - mag corrected # IDDM - continue levemir + SS coverage, adjust for BG extreme values. Plan/VTE VTE Prophylaxis Ordered?: Yes (hep sq bid) VTE Exclusion Mechanical Proph: N/A:VTE Prophy Ordered VTE Exclusion Pharmacological: N/A:VTE Prophy Ordered VS, I&O, 24H, Fishbone Vital Signs/I&O Vital Signs Date Time Temp Pulse Resp B/P (MAP) Pulse Ox O2 Delivery O2 Flow Rate FiO2 07/15/19 14:00 98.6 91 17 157/97 (117) 97 Room Air 07/11/19 22:37 3.0 I&O- Last 24 Hours up to 6 AM 07/15/19 06:00 Intake Total 1600 ml Output Total 300 ml Balance 1300 ml Laboratory Data 24H LABS Laboratory Tests 2 07/14/19 16:53: Bedside Glucose (Misc Panel) 225H 07/14/19 20:10: Bedside Glucose (Misc Panel) 162H 07/15/19 06:30: Anion Gap 7L, Glomerular Filtration Rate > 60.0, Calcium Level 8.5 07/15/19 11:37: Bedside Glucose (Misc Panel) 141H CBC/BMP Laboratory Tests 2/15/20 06:30 Microbiology Microbiology 07/11/19 Gram Stain - Final, Complete 07/11/19 Wound Culture - Final, Complete Streptococcus Group C Enterobacter Cloacae Complex Staph.aureus Methicillin Resis NAMRATA LEYVA MD Jul 15, 2019 14:51
[2019-07-15] MEDS: ACETAMINOPHEN TAB 650MG DOSE (2X325MG) PO PRN ×2 (15:47→23:00)
[2019-07-15] MEDS: LEVEMIR (INSULIN DETEMIR) 1 UNITS/0.01ML SC SCH (20:55)
[2019-07-15 22:00] VITALS: BP 142/94
[2019-07-16 06:00] VITALS: BP 148/96
[2019-07-16 07:30] LABS: BLOOD UREA NITROGEN 17 MG/DL (7-18); CALCIUM LEVEL 9.3 MG/DL (8.5-10.1); CARBON DIOXIDE LEVEL 28 MEQ/L (21-32); CHLORIDE LEVEL 105 MEQ/L (98-107); CREATININE FOR GFR 0.62 MG/DL (0.70-1.30); GLOMERULAR FILTRATION RATE > 60.0 (>60); GLUCOSE, FASTING 97 MG/DL (70-100); POTASSIUM SERUM 3.7 MEQ/L (3.5-5.1); SODIUM LEVEL 138 MEQ/L (136-145)
[2019-07-16] MEDS: HumaLOG INSULIN (NovoLOG) PER UNIT SC SCH ×4 (07:30→21:00)
[2019-07-16] MEDS: MULTIVITAMINS/MINERALS THERAP 1 TAB PO SCH (10:32)
[2019-07-16] MEDS: CEFUROXIME 500 MG TAB PO SCH ×2 (10:32→21:05)
[2019-07-16] MEDS: DOXYCYCLINE HYCLATE 100 MG TAB PO SCH ×2 (10:32→21:05)
[2019-07-16] MEDS: FOLIC ACID 1 MG TAB PO SCH (10:32)
[2019-07-16] MEDS ORDERED: diphenhydrAMINE 25 MG CAP PO PRN (13:00)
--- NOTE | 2019-07-16 13:01 | IPNPDOC ---
Subjective Date Seen The patient was seen on 07/16/19. Subjective Chief Complaint/HPI c/o trouble sleeping Objective Physical Examination General Exam: Positive: Alert, No Acute Distress Eye Exam: Positive: PERRLA ENT Exam: Positive: Pharynx Normal Neck Exam: Positive: Supple; Negative: JVD Chest Exam: Positive: Diminished Heart Exam: Positive: Rate Normal Abdomen Exam: Positive: Normal bowel sounds, Soft; Negative: Tenderness Extremity Exam: Positive: Other (3-4 centimeters unhealed wound of distal part of the left foot, stage III) Skin Exam: Positive: Nl turgor and temperature; Negative: Rash Psych Exam: Positive: Mental status NL, Other (somnolent) Assessment /Plan Assessment # Sepsis likely due to left diabetic foot infection with poly microbial organisms (mrsa, strep, enterobacter) - doxy + ceftin (day # 08/11) - D/w Dr. Varela MRI of left foot does not indicate osteomyelitis, ESR 7 - home once cleared by PT vs. rehab - f/u with Dr. Varela in 2 weeks # Acute ETOH intoxication - continue ciwa scale # Hypokalemia # Hypomagnesia - K dur this am - mag corrected # IDDM - continue levemir + SS coverage, adjust for BG extreme values # Insomnia - benadryl qhs prn Plan/VTE VTE Prophylaxis Ordered?: Yes (hep sq bid) VTE Exclusion Mechanical Proph: N/A:VTE Prophy Ordered VTE Exclusion Pharmacological: N/A:VTE Prophy Ordered VS, I&O, 24H, Fishbone Vital Signs/I&O Vital Signs Date Time Temp Pulse Resp B/P (MAP) Pulse Ox O2 Delivery O2 Flow Rate FiO2 07/16/19 06:00 98.2 76 16 148/96 (113) 93 Room Air 07/11/19 22:37 3.0 I&O- Last 24 Hours up to 6 AM 07/16/19 06:00 Intake Total 1800 ml Output Total 0 ml Balance 1800 ml Laboratory Data 24H LABS Laboratory Tests 2 07/15/19 16:54: Bedside Glucose (Misc Panel) 181H 07/15/19 20:54: Bedside Glucose (Misc Panel) 208H 07/15/19 22:57: Bedside Glucose (Misc Panel) 182H 07/16/19 06:51: Anion Gap 5L, Glomerular Filtration Rate > 60.0, Calcium Level 9.3 07/16/19 11:32: Bedside Glucose (Misc Panel) 199H CBC/BMP Laboratory Tests 07/16/19 06:51 Microbiology Microbiology 07/11/19 Gram Stain - Final, Complete 07/11/19 Wound Culture - Final, Complete Streptococcus Group C Enterobacter Cloacae Complex Staph.aureus Methicillin Resis NAMRATA LEYVA MD Jul 16, 2019 13:01
[2019-07-16] MEDS: ACETAMINOPHEN TAB 650MG DOSE (2X325MG) PO PRN (13:05)
[2019-07-16 14:00] VITALS: BP 138/75
[2019-07-16] MEDS: LEVEMIR (INSULIN DETEMIR) 1 UNITS/0.01ML SC SCH (21:05)
[2019-07-16 22:00] VITALS: BP 130/86
[2019-07-17 06:00] VITALS: BP 146/88
[2019-07-17 07:14] LABS: BLOOD UREA NITROGEN 14 MG/DL (7-18); CALCIUM LEVEL 9.2 MG/DL (8.5-10.1); CARBON DIOXIDE LEVEL 28 MEQ/L (21-32); CHLORIDE LEVEL 106 MEQ/L (98-107); CREATININE FOR GFR 0.63 MG/DL (0.70-1.30); GLOMERULAR FILTRATION RATE > 60.0 (>60); GLUCOSE, FASTING 93 MG/DL (70-100); POTASSIUM SERUM 3.8 MEQ/L (3.5-5.1); SODIUM LEVEL 139 MEQ/L (136-145)
[2019-07-17] MEDS: HumaLOG INSULIN (NovoLOG) PER UNIT SC SCH ×2 (07:30→12:39)
[2019-07-17] MEDS: DOXYCYCLINE HYCLATE 100 MG TAB PO SCH (08:51)
[2019-07-17] MEDS: FOLIC ACID 1 MG TAB PO SCH (08:51)
[2019-07-17] MEDS: MULTIVITAMINS/MINERALS THERAP 1 TAB PO SCH (08:51)
[2019-07-17] MEDS: CEFUROXIME 500 MG TAB PO SCH (08:51)
[2019-07-17] MEDS ORDERED: DIPH25CA32 PO (12:12)
--- NOTE | 2019-07-17 12:17 | IPNPDOC ---
Subjective Date Seen The patient was seen on 07/17/19. Subjective Chief Complaint/HPI slept alittle last night. Otherwise no new complaints. Objective Physical Examination General Exam: Positive: Alert, No Acute Distress Eye Exam: Positive: PERRLA ENT Exam: Positive: Pharynx Normal Neck Exam: Positive: Supple; Negative: JVD Chest Exam: Positive: Diminished Heart Exam: Positive: Rate Normal Abdomen Exam: Positive: Normal bowel sounds, Soft; Negative: Tenderness Extremity Exam: Positive: Other (3-4 centimeters unhealed wound of distal part of the left foot, stage III) Skin Exam: Positive: Nl turgor and temperature; Negative: Rash Psych Exam: Positive: Mental status NL, Other (somnolent) Assessment /Plan Assessment # Sepsis likely due to left diabetic foot infection with poly microbial organisms (mrsa, strep, enterobacter) - doxy + ceftin (day # 09/11) - D/w Dr. Varela MRI of left foot does not indicate osteomyelitis, ESR 7 - home once cleared by PT vs. rehab - f/u with Dr. Varela in 2 weeks # Acute ETOH intoxication - continue ciwa scale # Hypokalemia # Hypomagnesia - K dur this am - mag corrected # IDDM - continue levemir + SS coverage, adjust for BG extreme values # Insomnia - benadryl qhs prn Dispo: Home today with home health Plan/VTE VTE Prophylaxis Ordered?: Yes (hep sq bid) VTE Exclusion Mechanical Proph: N/A:VTE Prophy Ordered VTE Exclusion Pharmacological: N/A:VTE Prophy Ordered VS, I&O, 24H, Fishbone Vital Signs/I&O Vital Signs Date Time Temp Pulse Resp B/P (MAP) Pulse Ox O2 Delivery O2 Flow Rate FiO2 07/17/19 06:00 98.1 76 15 146/88 (107) 95 Room Air 07/11/19 22:37 3.0 I&O- Last 24 Hours up to 6 AM 07/17/19 06:00 Intake Total 1956 ml Output Total 0 ml Balance 1956 ml Laboratory Data 24H LABS Laboratory Tests 2 07/16/19 16:28: Bedside Glucose (Misc Panel) 198H 07/16/19 20:47: Bedside Glucose (Misc Panel) 118H 07/17/19 05:52: Anion Gap 5L, Glomerular Filtration Rate > 60.0, Calcium Level 9.2 07/17/19 10:56: Bedside Glucose (Misc Panel) 122H CBC/BMP Laboratory Tests 07/17/19 05:52 Microbiology Microbiology 07/11/19 Gram Stain - Final, Complete 07/11/19 Wound Culture - Final, Complete Streptococcus Group C Enterobacter Cloacae Complex Staph.aureus Methicillin Resis NAMRATA LEYVA MD Jul 17, 2019 12:17
--- NOTE | 2019-07-18 20:03 | DSES ---
DATE OF ADMISSION: 07/11/2019 DATE OF DISCHARGE: 07/17/2019 DISCHARGE DIAGNOSES: 1. Sepsis likely secondary to a left diabetic foot infection with polymicrobial organisms consistent of methicillin-resistant Staphylococcus aureus (MRSA), Streptococcus, and Enterobacter. 2. Acute alcohol intoxication. 3. Hypokalemia. 4. Hypomagnesemia. 5. Insulin-dependent diabetes mellitus, type 2, poorly controlled. 6. Insomnia. 7. Chronic thrombocytopenia secondary to excessive alcohol use. Procedures performed during this hospitalization were none. CONSULTANTS ON THE CASE: 1. Dr. Varela of podiatry. 2. Dr. Romero of wound care. DISPOSITION: The patient is discharged home. CONDITION AT DISCHARGE: Stable and improved. RELEVANT LABORATORY DATA: Blood cultures were not taken during this hospitalization. Wound cultures grew Streptococcus group C, Enterobacter as well as MRSA. On admission, his white blood cell count was 14.7, with antibiotic therapy it improved to 10.6, hemoglobin is 13.7, hematocrit is 41.7, platelet count is 98,000, ESR is 11. Lactic acid was 2.4 on admission, improved to 1.4 with hydration, sodium was 139, potassium 3.8, chloride 106, bicarbonate 28, BUN 14, creatinine 0.63, glucose 93, calcium 9.2. Alcohol level was 0.45, salicylates as well as Tylenol was less than 2. Vancomycin troughs were 6 and 8 when checked. IMAGING STUDIES: Chest x-ray one-view showed no acute pathology. X-ray of the foot showed soft tissue swelling, prior amputation. No findings to definitively diagnose the osteomyelitis. Vascular ultrasound showed mild scattered atheromatous plaque without stenosis or occlusion. This was done involving the left extremity. MRI of the left foot showed findings suspicious for osteomyelitis involving the distal half of the first metatarsal and the proximal phalanx of the fourth toe. DISCHARGE MEDICATIONS: Are the following: - cefuroxime 500 mg twice a day for 14 days - Benadryl 50 mg at bedtime as needed for sleep - doxycycline 100 mg twice a day for 14 days - cholecalciferol 1000 units daily - cilostazol 50 mg twice a day - Eddy 5/325 one tablet twice a day as needed for pain - NovoLog FlexPen per sliding scale - Levemir 20 units at bedtime - tramadol 50 mg twice a day as needed for pain DISCHARGE INSTRUCTIONS: The patient is to followup with his primary care provider (PCP) in one week and with Dr. Varela in one week for a wound check. He is to be non-weightbearing on his left foot. HOSPITAL COURSE: Mr. Taylor is a 43-year-old chronic alcoholic and poorly controlled diabetic who has undergone bilateral hallux amputations. He has been following with Dr. Varela on a weekly basis for wound care. He had presented to the hospital with increased drainage from his left diabetic foot wound with elevated white blood cell count and associated cellulitis of the wound. He was placed on empiric antibiotics consisting of vancomycin and meropenem. Clinically, his cellulitis improved with antibiotic therapy. Cultures were taken and grew organisms as outlined above. An MRI of his left foot was obtained which the report was indicative of osteomyelitis. However, I had Dr. Varela review the film and he did not feel that there was osteomyelitis and those were changes associated with his previous surgery. The patient was seen by Dr. Romero for wound care who made recommendation which were implemented. Please reference his consultation. He requested vascular ultrasound of the left lower extremity which was done which showed no evidence of stenosis or occlusion. Clinically, the patient improved. His antibiotics were narrowed to reflect the sensitivities of the organisms growing. It was recommended by Dr. Varela that he receive two weeks of antibiotics and he was discharged with these at the time of discharge.
== END 2019-07-17 15:03 | disposition home or self-care (01) | DRG 720 ==
LOC: EDBD 14:59 → M ED 14:59 → M ED INP 22:52 → ENRESERV 23:08 → M PCU 07-12 00:19 → M MSPAV 07-13 18:12
PROVIDERS: ADMIT Internal Medicine; ATTEND Internal Medicine
DX: A41.9 Sepsis, unspecified organism (principal); E11.40 Type 2 diabetes mellitus with diabetic neuropathy, unspecified; E83.42 Hypomagnesemia; E11.65 Type 2 diabetes mellitus with hyperglycemia; I10 Essential (primary) hypertension; F10.129 Alcohol abuse with intoxication, unspecified; E66.9 Obesity, unspecified; F41.9 Anxiety disorder, unspecified; F32.9 Major depressive disorder, single episode, unspecified; F17.200 Nicotine dependence, unspecified, uncomplicated; Z89.412 Acquired absence of left great toe; K42.9 Umbilical hernia without obstruction or gangrene; E87.6 Hypokalemia; G47.00 Insomnia, unspecified; Z68.34 Body mass index [BMI] 34.0-34.9, adult; Z91.19 Patient's noncompliance with other medical treatment and regimen; Z79.4 Long term (current) use of insulin; Z79.899 Other long term (current) drug therapy; B95.5 Unspecified streptococcus as the cause of diseases classified elsewhere; B95.61 Methicillin susceptible Staphylococcus aureus infection as the cause of diseases classified elsewhere; B96.89 Other specified bacterial agents as the cause of diseases classified elsewhere

== ENCOUNTER 2019-10-23 16:01 | Emergency (ER) | payer OTHER ==
[~2019-10-23] VITALS: Ht 180.3 cm; Wt 109.1 kg
[~2019-10-23 16:01] MED LIST changes: +CEFU50TA PO; +DIPH25CA32 PO; +DOXY100T PO; +NORC1TAB7 PO; +VITAD1000T PO
[2019-10-23 16:58] LABS: BLOOD UREA NITROGEN 27 MG/DL (7-18); CALCIUM LEVEL 9.1 MG/DL (8.5-10.1); CARBON DIOXIDE LEVEL 23 MEQ/L (21-32); CHLORIDE LEVEL 102 MEQ/L (98-107); CREATININE FOR GFR 1.24 MG/DL (0.70-1.30); GLOMERULAR FILTRATION RATE > 60.0 (>60); GLUCOSE, FASTING 273 MG/DL (70-100); POTASSIUM SERUM 4.3 MEQ/L (3.5-5.1); SODIUM LEVEL 136 MEQ/L (136-145)
[2019-10-23 17:42] LABS: BASO % 0.3 % (0.0-1.0); EOS % 0.7 % (0.0-3.0); HEMATOCRIT 41.6 % (42.0-52.0); HEMOGLOBIN 13.9 g/dl (13.5-17.5); LYMPH # 0.9 10^3/uL (1.5-5.0); LYMPH % 14.2 % (24.0-44.0); MEAN CORPUSCULAR HEMOGLOBIN 33.4 pg (27.0-33.0); MEAN CORPUSCULAR HGB CONC 33.4 g/dl (32.0-36.5); MONO # 0.8 10^3/uL (0.0-0.8); MONO % 13.5 % (0.0-5.0); NEUTROPHILS # 4.2 10^3/uL (1.5-8.5); NEUTROPHILS % 70.6 % (36.0-66.0); PLATELET COUNT, AUTOMATED 132 10^3/uL (150-450); RED BLOOD COUNT 4.16 10^6/uL (4.30-6.10)
[2019-10-23] MEDS ORDERED: NS 500 ML IV ONE (17:45)
--- NOTE | 2019-10-23 17:58 | ECGEPIP ---
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
[2019-10-23] MEDS ORDERED: ISOVUE-370 76% 100ML VIAL As Ordered ONE ×2 (19:03→19:28)
--- NOTE | 2019-10-23 19:50 | REPVR ---
PROCEDURE INFORMATION: Exam: CT Angiography Chest With Contrast Exam date and time: 10/23/2019 7:18 PM Age: 43 years old Clinical indication: Chest pain; Additional info: Pleuritic cp/elevated ddimer TECHNIQUE: Imaging protocol: Computed tomographic angiography of the chest with intravenous contrast. 3D rendering: MIP and/or 3D reconstructed images were created by the technologist. Radiation optimization: All CT scans at this facility use at least one of these dose optimization techniques: automated exposure control; mA and/or kV adjustment per patient size (includes targeted exams where dose is matched to clinical indication); or iterative reconstruction. Contrast material: ISO 370; Contrast volume: 75 ml; Contrast route: IV; COMPARISON: CR PORTABLE CHEST X-RAY 10/23/2019 4:33 PM FINDINGS: Pulmonary arteries: No evidence of pulmonary emboli. Aorta: No thoracic aortic aneurysm or dissection. Lungs: No lung consolidation. No ground-glass opacities. No mass. Pleural space: Unremarkable. No pneumothorax. No pleural effusion. Heart: Unremarkable. No cardiomegaly. No pericardial effusion. Lymph nodes: Unremarkable. No enlarged lymph nodes. Liver: There is extensive diffuse hepatic steatosis. Bones/joints: Unremarkable. No acute fracture. Soft tissues: Unremarkable. IMPRESSION: 1. No pulmonary emboli. 2. No thoracic aortic aneurysm or dissection. 3. No acute findings. Electronically signed by: Danny Salazar On 10/23/2019 19:49:48 PM
[2019-10-23 22:46] VITALS: BP 146/89
--- NOTE | 2019-10-24 04:31 | REP ---
Clinical: Acute chest pain . Comparison: 07/11/2019 . Findings: The mediastinum and cardiac silhouette are stable and within normal limits for portable technique. The lung trevizo are clear without acute consolidation, effusion, or pneumothorax. Skeletal structures are intact. Impression: No acute cardiopulmonary process appreciated. Electronically Signed by David Youngblood MD 10/24/2019 04:23 A
--- NOTE | 2019-10-24 08:04 | ECGEPIP ---
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
== END 2019-10-23 23:52 | disposition home or self-care (01) ==
LOC: EDBD 16:01 → M ED 16:01
DX: R00.2 Palpitations (principal); R07.9 Chest pain, unspecified; E11.9 Type 2 diabetes mellitus without complications; Z79.899 Other long term (current) drug therapy; Z79.4 Long term (current) use of insulin; F17.210 Nicotine dependence, cigarettes, uncomplicated
CPT/HCPCS: 36415; 71045; 71275; 80048; 84443; 85025; 85379; 93005; 93041; 94760; 96360; 96361; 99285; Q9967

== ENCOUNTER 2020-08-14 16:13 | Inpatient (IN) | payer MEDICARE, OTHER ==
[~2020-08-14] VITALS: Ht 180.3 cm; Wt 114.2 kg
[~2020-08-14 16:13] MED LIST changes: +D31000TA2 PO; +LISI10TA22 PO; -LISI10TA4 PO; -VITAD1000T PO
[2020-08-14] MEDS ORDERED: PANTOPRAZOLE 40MG VIAL (C9113 PER 1) IV ONE (16:35)
[2020-08-14] MEDS: NS 1,000 ML IV SCH ×2 (17:01→17:59)
[2020-08-14] MEDS ORDERED: LORazepam 2 MG TAB PO PRN ×2 (17:05→20:15)
[2020-08-14] MEDS ORDERED: THIAMINE 200MG/2ML VIAL (J3411 PER 100MG) IM ONE (17:05)
[2020-08-14 17:09] LABS: VENOUS BASE EXCESS -10.2 (-2.0-2.0); VENOUS HCO3 16.5 MEQ/L (23.0-27.0); VENOUS O2 SATURATION 64.3 % (60.0-80.0); VENOUS PARTIAL PRESSURE CO2 39.3 mmHg (38.0-50.0); VENOUS PARTIAL PRESSURE O2 43.1 mmHg (30.0-50.0); VENOUS STANDARD HCO3 15.8 MEQ/L; VENOUS TOTAL CO2 17.7 MEQ/L (24.0-28.0)
--- NOTE | 2020-08-14 17:11 | REP ---
INDICATION: SEPSIS/SHOCK. COMPARISON: Comparison chest x-ray October 23, 2019. TECHNIQUE: Portable upright AP chest radiograph. FINDINGS: The lungs are well inflated and free of infiltrate. Pleural angles are sharp. Heart size is normal. Pulmonary vasculature is not increased. No significant bony abnormality is seen. IMPRESSION: No active disease. <Electronically signed by Jorge Crowell > 08/14/20 [id number]
[2020-08-14 17:12] LABS: BASO % 0.3 % (0.0-1.0); EOS % 0.3 % (0.0-3.0); HEMATOCRIT 28.7 % (42.0-52.0); HEMOGLOBIN 9.1 g/dl (13.5-17.5); LYMPH # 1.9 10^3/uL (1.5-5.0); MEAN CORPUSCULAR HEMOGLOBIN 33.6 pg (27.0-33.0); MEAN CORPUSCULAR HGB CONC 31.7 g/dl (32.0-36.5); MEAN CORPUSCULAR VOLUME 105.9 fl (80.0-96.0); MONO # 0.7 10^3/uL (0.0-0.8); MONO % 7.7 % (2.0-8.0); NEUTROPHILS # 6.4 10^3/uL (1.5-8.5); NEUTROPHILS % 69.9 % (36.0-66.0); PLATELET COUNT, AUTOMATED 175 10^3/uL (150-450); RED BLOOD COUNT 2.71 10^6/uL (4.30-6.10); WHITE BLOOD COUNT 9.2 10^3/uL (4.0-10.0)
[2020-08-14] MEDS ORDERED: SULF1TAB93 PO (17:13)
[2020-08-14] MEDS ORDERED: HYDR-3713 PO (17:13)
[2020-08-14 17:23] LABS: INR 1.07; PROTHROMBIN TIME 14.1 SECONDS (12.5-14.3)
[2020-08-14 17:24] LABS: PARTIAL THROMBOPLASTIN TIME 25.1 SECONDS (24.2-38.5)
[2020-08-14 17:35] LABS: ALBUMIN 2.8 GM/DL (3.2-5.2); ALT/SGPT 31 U/L (12-78); AMYLASE 29 U/L (25-115); BILIRUBIN,DIRECT 0.1 MG/DL (0.0-0.2); BILIRUBIN,TOTAL 0.4 MG/DL (0.2-1.0); BLOOD UREA NITROGEN 46 MG/DL (7-18); C REACTIVE PROTEIN QUANTITATIV 0.35 MG/DL (0.00-0.30); CALCIUM LEVEL 8.4 MG/DL (8.5-10.1); CARBON DIOXIDE LEVEL 19 MEQ/L (21-32); CHLORIDE LEVEL 101 MEQ/L (98-107); CK-MB VALUE MASS 2.3 NG/ML (<3.6); CPK CREATINE PHOSPHOKINASE 63 U/L (39-308); CREATININE FOR GFR 1.06 MG/DL (0.70-1.30); ETHYL ALCOHOL (ETHANOL) 0.112 % (0.000-0.010); GLOMERULAR FILTRATION RATE > 60.0 (>60); GLUCOSE, FASTING 338 MG/DL (70-100); MB/CK RELATIVE INDEX 3.65 (< OR =4); POTASSIUM SERUM 3.9 MEQ/L (3.5-5.1); SODIUM LEVEL 135 MEQ/L (136-145); TOTAL PROTEIN 6.7 GM/DL (6.4-8.2); TROPONIN I < 0.02 NG/ML (< 0.10)
[2020-08-14] MEDS ORDERED: NS 3,480 ML in IV 1 EA IV ONE (17:45)
[2020-08-14] MEDS: oxyCODONE 5MG TAB PO ONE ×2 (18:00→18:09)
[2020-08-14 18:11] LABS: RSV AMPLIFICATION NEGATIVE (NEGATIVE)
[2020-08-14] MEDS ORDERED: CEFEPIME HCL 2 GM in D5W MINI-BAG PLUS 50 ML IV ONE (18:15)
[2020-08-14 18:19] LABS: ACETONE/KETONE 11.36 MG/DL (<2.81)
[2020-08-14] MEDS ORDERED: MORPHINE 4 MG/ML 1ML VIAL/SYRINGE (J2270) IV PRN (18:20)
[2020-08-14] MEDS ORDERED: HumuLIN R (REGULAR) INSULIN (NovoLIN R) **100U/ML** PER UNIT IV ONE (18:20)
[2020-08-14 18:36] LABS: SALICYLATE LEVEL 2.3 MG/DL (5.0-30.0)
[2020-08-14 18:39] LABS: OSMOLALITY SERUM 341 MOSM/KG (275-295)
[2020-08-14] MEDS ORDERED: D31000TA2 PO (18:53)
[2020-08-14] MEDS ORDERED: PATIENT COMMENT (18:53)
[2020-08-14] MEDS ORDERED: AMMO12CR7 TOP (18:53)
[2020-08-14] MEDS ORDERED: INSULIN REGULAR IN 0.9 % NACL 100 UNIT in IV 1 EA IV SCH ×2 (20:15)
[2020-08-14] MEDS ORDERED: INSULIN IV RATE CHANGE DOCUMENTATION ML/HR XX SCH (20:15)
--- NOTE | 2020-08-14 20:27 | HPEPDOC ---
[facility] Medical History & Physical Date of Admission Aug 14, 2020 Date of Service: Aug 14, 2020 Attending Physician: JUAREZ ESPITIA MD History and Physical CHIEF COMPLAINT: lethargy HISTORY OF PRESENT ILLNESS: 44 year old male with PMHx noted below who presented to the ED after he was found by a friend passed out on his couch. He states he was slightly confused when he woke up, but this resolved within a few minutes. He states he last remembers being awake and well yesterday and is not sure what happened last night. He does not remember what he was doing prior to passing out on the couch and states he does not remember taking his Levemir insulin last night. He reports that when he was woken up this morning he did take his Bactrim and 4 units of Novolog prior to being brought to the ED. He reports 3-4 days of black, tarry diarrhea. He denies abdominal pain, nausea, vomiting, and bright red blood in stool. He denies history of GI bleeding. He also notes an ulcer on the bottom of his left foot. He states he has been seeing Dr. Varela who was considering surgery. He states he is taking antibiotics (Bactrim) for infection of the foot currently. He states he is typically compliant with his medications. PAST MEDICAL HISTORY: IDDM with neuropathy Anxiety/depression Hypertension, not currently on medication PVD Vitamin D deficiency Osteomyelitis PAST SURGICAL HISTORY: Multiple toe amputations on bilateral feet Tonsillectomy SOCIAL HISTORY: Currently smokes 1 ppd for past 20 years. Drinks at least 6 beers daily. Endorses occasional marijuana use. Denies other illicit substance use or any IVDA. FAMILY HISTORY: Pt adopted. States mother had DM, otherwise unknown. ALLERGIES: Please see below. REVIEW OF SYSTEMS: CONSTITUTIONAL: Denies fevers, chills, night sweats, fatigue, unexpected change in weight. HEENT: Denies change in vision, change in hearing. CARDIOVASCULAR: Denies chest pain, palpitations, shortness of breath, lightheadedness. RESPIRATORY: Denies cough, wheezing. GASTROINTESTINAL: See HPI. Pt notes chronic hernia. GENITOURINARY: Denies dysuria, urinary frequency, urinary urgency. SKIN: Endorses ulcer on left foot. MUSCULOSKELETAL: Denies joint pain or muscle aches. NEUROLOGICAL: Denies headache, dizziness. PSYCHIATRIC: Denies change in mood. HOME MEDICATIONS: Please see below. PHYSICAL EXAMINATION: VITAL SIGNS: see below GENERAL: Alert, comfortable, in no acute distress HEENT: Normocephalic, atraumatic, PERRLA, EOMI, sclera anicteric, moist mucous membranes NECK: Supple, trachea midline CARDIOVASCULAR: Tachycardic with regular rhythm, normal S1 and S2. No murmurs, rubs, or gallops RESPIRATORY: Clear to auscultation bilaterally with equal air entry bilaterally. No wheezing, rhonchi, or rales. ABDOMEN: Obese, soft, nontender, nondistended, bowel sounds present. Umbilical hernia present which is not easily reducible and is nontender. EXTREMITIES: No cyanosis or edema, s/p multiple toe amputations SKIN: ulceration on the distal plantar surface on the left foot without drainage, erythema, or warmth. superficial ulceration on the left knee without drainage, erythema, or warmth. NEUROLOGIC: Alert and oriented x3 to person, place and time. No focal deficits appreciated PSYCHIATRIC: Mood and affect appropriate LABORATORY DATA: See below. IMAGING: - CXR No active disease. MICROBIOLOGY: Please see below. ASSESSMENT: 44 year old male with PMHx of diabetes mellitus, PVD, prior osteomyelitis, and alcohol abuse, who presented to the ED after being found lethargic on his cough, found to have anion gap metabolic acidosis, anemia, and diabetic foot ulcer admitted for further evaluation and treatment. PLAN: 1. Diabetic ketoacidosis 2/2 alcohol abuse vs foot infection vs medication noncompliance - Ordered ABG. Ordered HgA1c. Ordered UA. - Elevated ketones with elevated anion gap and low bicarb. Acidosis on VBG. - Insulin drip with FSBS q1h and frequent BMPs. NPO. - NPO. IV fluids NS/20meq K at 200ml/hr Anemia likely acute 2/2 to GI bleed vs chronic 2/2 alcohol abuse vs iron deficiency vs chronic disease - last H/H on record was normal 1 year ago, difficult to assess whether acute or chronic - check stool occult blood. trend H/H q6h x2 to help determine if actively bleeding - macrocytosis likely related to alcohol abuse Diabetic foot ulcer - foot XR to evaluated for osteomyelitis. check ESR and CRP - abx coverage with cefepime and vancomycin. blood cultures x2 ordered - follow outpatient with Dr. Varela who has been consulted and will see the patient tomorrow AM. Tachycardia likely 2/2 dehydration - s/p 3.5L IF fluid bolus, continue IV fluids as above for DKA - monitor on telemetry - may continue with tachycardia with expected alcohol withdrawal Alcohol withdrawal - CIWA protocol with PO ativan PRN - supplement thiamine, folic acid, multivitamin - pt may also have some alcoholic ketoacidosis contributing to his acidosis. Tobacco dependence - nicotine patch while inpatient - smoking cessation counselling DVT prophylaxis: SC lovenox Disposition: admitted inpatient to ICU expect greater than two midnight stay Vital Signs Vital Signs Date Time Temp Pulse Resp B/P (MAP) Pulse Ox O2 Delivery O2 Flow Rate FiO2 08/14/20 19:07 113 18 143/76 (98) 100 Room Air 08/14/20 16:37 96.5 Laboratory Data Labs 24H Laboratory Tests 2 08/14/20 16:47: Immature Granulocyte % (Auto) 0.8, Neutrophils (%) (Auto) 69.9H, Lymphocytes (%) (Auto) 21.0L, Monocytes (%) (Auto) 7.7, Eosinophils (%) (Auto) 0.3, Basophils (%) (Auto) 0.3, Neutrophils # (Auto) 6.4, Lymphocytes # (Auto) 1.9, Monocytes # (Auto) 0.7, Eosinophils # (Auto) 0.0, Basophils # (Auto) 0.0, Nucleated Red Blood Cells % (auto) 0.3H, Prothrombin Time 14.1H, Prothromb Time International Ratio 1.07, Activated Partial Thromboplast Time 25.1, Blood Gas Bicarbonate Standard 15.8, Venous Blood pH 7.240L, Venous Blood Partial Pressure CO2 39.3, Venous Blood Partial Pressure O2 43.1, Venous Blood Total Carbon Dioxide 17.7L, Venous Blood HCO3 16.5L, Venous Blood Oxygen Saturation 64.3, Venous Blood Base Excess -10.2L, Anion Gap 15, Glomerular Filtration Rate > 60.0, Osmolality 341H, Lactic Acid Level 8.9*H, Calcium Level 8.4L, Total Bilirubin 0.4, Direct Bilirubin 0.1, Aspartate Amino Transf (AST/SGOT) 28, Alanine Aminotransferase (ALT/SGPT) 31, Alkaline Phosphatase 58, Total Creatine Kinase 63, Creatine Kinase MB 2.3, Creatine Kinase MB Relative Index 3.65, Troponin I < 0.02, C- Reactive Protein, Quantitative 0.35H, Total Protein 6.7, Albumin 2.8L, Albumin/Globulin Ratio 0.7, Amylase Level 29, Salicylates Level 2.3L, Ethyl Alcohol Level 0.112H, B-Hydroxybutyrate 11.36H 08/14/20 16:49: Coronavirus (COVID-19)(PCR) NEGATIVE, Influenza Type A (RT-PCR) NEGATIVE, Influenza Type B (RT-PCR) NEGATIVE, Respiratory Syncytial Virus (PCR) NEGATIVE 08/14/20 19:49: CBC/BMP Laboratory Tests 08/14/20 16:47 Microbiology Microbiology 08/14/20 Blood Culture, Received Pending 08/14/20 Blood Culture, Received Pending Home Medications Scheduled Cholecalciferol (Vitamin D3) (Vitamin D3) 1,000 Unit Tablet, 1,000 UNITS PO BID Cilostazol (Cilostazol) 50 Mg Tablet, 50 MG PO BID Insulin Aspart (Novolog Flexpen) 100 Unit/1 Ml Insuln.pen, 1 DOSE SC ACHS PER SLIDING SCALE Insulin Detemir (Levemir) 100 Unit/1 Ml Vial, 20 UNITS SC QHS Sulfamethoxazole/Trimethoprim (Sulfamethoxazole-Tmp Ds Tablet) 1 Each Tablet, 1 TAB PO BID FILLED 08/12/20 FOR 10 DAYS Scheduled PRN Ammonium Lactate (Ammonium Lactate) 12% Cream..g., 1 DOSE TOP DAILY PRN for DRY SKIN APPLY TO FEET Hydrocodone/Acetaminophen (Hydrocodone-Acetamin 5-325 mg) 1 Each Tablet, 1 TAB P O BID PRN for PAIN Miscellaneous Medications [Patient Comment] UNABLE TO VERIFY MEDICATIONS WITH PATIENT - MED LIST OBTAINED FROM PHARMACY Allergies Coded Allergies: No Known Allergies (Unverified , 01/24/19) A-FIB/CHADSVASC A-FIB History Current/History of A-Fib/PAF?: No Current PO Anticoag Therapy: No GME ATTESTATION GME ATTESTATION My faculty preceptor for this patient encounter was physically present during the encounter and was fully available. All aspects of the patient interview, examination, medical decision making process, and medical care plan development were reviewed and approved by the faculty preceptor. The faculty preceptor is aware and concurs with the plan as stated in the body of this note and will attest to such by his/her cosignature. ATTENDING NOTE Time of service 805pm is a 44 yr old M w a hx of IDDM1, HTN, LISANDRA, Osteomyelitis of the R foot s/p toe amputation, PVD, Anxiety/Depression and obesity whos friend called EMS bc he passed out. He admits to drinking heavily. He will be admitted for management of DKA and alcoholic ketosis. Plan: treat for DKA / abx / f/u imaging studies of the foot & knee and with rest per 's H&P MARRY JOHNS DParas Aug 14, 2020 20:27 JUAREZ ESPITIA MD Aug 15, 2020 02:05
[2020-08-14] MEDS ORDERED: VANCOMYCIN HCL 1,740 MG in IV FLUID PLACE HOLDER 1 EA IV SCH (20:35)
[2020-08-14 21:02] LABS: HEMOGLOBIN A1c 7.2 %
[2020-08-14] MEDS: MULTIVITAMINS/MINERALS THERAP 1 TAB PO SCH (21:36)
[2020-08-14] MEDS: THIAMINE 100 MG TAB PO SCH (21:36)
[2020-08-14] MEDS: PANTOPRAZOLE 40MG VIAL (C9113 PER 1) IV SCH (21:37)
[2020-08-14] MEDS: FOLIC ACID 1 MG TAB PO SCH (21:37)
[2020-08-14] MEDS: KCL 20MEQ in NS 1000ML 1,000 ML IV SCH (21:37)
[2020-08-14] MEDS: NICOTINE 21MG/24HR 1 EA TRANSDERMAL TD SCH (21:37)
[2020-08-14] MEDS: VANCOMYCIN HCL 1,000 MG, VIAL MATE ADAPTER 1 EACH in NS 250 ML IV SCH (21:38)
[2020-08-14 21:48] VITALS: BP 155/74
[2020-08-14 22:00] VITALS: BP 133/80
[2020-08-14] MEDS ORDERED: VANCOMYCIN HCL 1,000 MG, VIAL MATE ADAPTER 1 EACH in NS 250 ML IV ONE (22:00)
[2020-08-14 22:02] LABS: ABG BASE EXCESS -1.5 (-2.0-2.0); ABG HCO3 20.3 MEQ/L (22.0-26.0); ABG O2 SATURATION 99.2 % (95.0-99.0); ABG PARTIAL PRESSURE CO2 23.9 mmHg (35.0-45.0); ABG PARTIAL PRESSURE O2 126.2 mmHg (75.0-100.0); ABG STANDARD HCO3 23.2 MEQ/L (22.0-26.0); ABG pH (ARTERIAL) 7.546 UNITS (7.350-7.450)
[2020-08-14 22:14] LABS: BLOOD UREA NITROGEN 41 MG/DL (7-18); CALCIUM LEVEL 7.9 MG/DL (8.5-10.1); CARBON DIOXIDE LEVEL 24 MEQ/L (21-32); CHLORIDE LEVEL 106 MEQ/L (98-107); CREATININE FOR GFR 0.78 MG/DL (0.70-1.30); GLOMERULAR FILTRATION RATE > 60.0 (>60); GLUCOSE, FASTING 278 MG/DL (70-100); POTASSIUM SERUM 4.2 MEQ/L (3.5-5.1); SODIUM LEVEL 137 MEQ/L (136-145)
[2020-08-14] MEDS ORDERED: GLUCAGON INJ 1MG VIAL SC PRN (22:30)
[2020-08-14] MEDS ORDERED: DEXTROSE 50% 50 ML SYRINGE IV PRN (22:30)
[2020-08-14] MEDS ORDERED: GLUCOSE 4GM CHEW TABLET PO PRN (22:30)
[2020-08-14 23:00] VITALS: BP 130/60
[2020-08-14] MEDS ORDERED: LEVEMIR (INSULIN DETEMIR) 1 UNITS/0.01ML SC ONE (23:00)
[2020-08-15] VITALS (23 sets, daily range): BP systolic 113–175; BP diastolic 58–90
[2020-08-15 00:21] LABS: HEMATOCRIT 23.7 % (42.0-52.0)
[2020-08-15 00:39] LABS: BLOOD UREA NITROGEN 35 MG/DL (7-18); CARBON DIOXIDE LEVEL 23 MEQ/L (21-32); CHLORIDE LEVEL 105 MEQ/L (98-107); CREATININE FOR GFR 0.73 MG/DL (0.70-1.30); GLOMERULAR FILTRATION RATE > 60.0 (>60); GLUCOSE, FASTING 303 MG/DL (70-100); POTASSIUM SERUM 4.1 MEQ/L (3.5-5.1); SODIUM LEVEL 136 MEQ/L (136-145)
--- NOTE | 2020-08-15 01:11 | ECGEPIP ---
[facility] - ED Test Date: 2020-08-14 Pat Name: CHEIKH TORO Department: Room: - Gender: Male [employer] Continuous Process: : 1975 Requested By: Liana Muse Order Number: [id number] Reading MD: Shahzad Pimentel Measurements Intervals [place] Rate: 117 P: 53 GA: 138 QRS: 16 QRSD: 90 T: 42 QT: 334 QTc: 465 Interpretive Statements Sinus tachycardia RATE CHANGE COMPARED TO 10/23/19 Electronically Signed on 08-15-2020 1:11:09 EDT by Shahzad Pimentel
[2020-08-15 02:18] LABS: MAGNESIUM LEVEL 1.7 MG/DL (1.8-2.4); PHOSPHORUS LEVEL 1.5 MG/DL (2.5-4.9)
[2020-08-15] MEDS: KCL 20MEQ in NS 1000ML 1,000 ML IV SCH (04:00)
--- NOTE | 2020-08-15 04:19 | REP ---
INDICATION: ?osteomyelitits, ulcer on distal plantar surface COMPARISON: None. TECHNIQUE: AP, lateral, bilateral oblique views left foot. FINDINGS: Soft tissue swelling over the residual 1st toe with somewhat washed out irregular appearance to the cortex at the residual distal aspect of the 1st metatarsal bone is concerning for osteomyelitis. IMPRESSION: Findings concerning for osteomyelitis involving the distal aspect of the residual 1st metatarsal bone. <Electronically signed by David Youngblood > 08/15/20 0418
[2020-08-15] MEDS: VANCOMYCIN HCL 1,000 MG, VIAL MATE ADAPTER 1 EACH in NS 250 ML IV SCH ×3 (04:52→21:40)
[2020-08-15 05:01] LABS: VENOUS HCO3 22.9 MEQ/L (23.0-27.0); VENOUS O2 SATURATION 72.2 % (60.0-80.0); VENOUS PARTIAL PRESSURE CO2 34.1 mmHg (38.0-50.0); VENOUS PARTIAL PRESSURE O2 40.4 mmHg (30.0-50.0); VENOUS PH 7.444 UNITS (7.330-7.430); VENOUS STANDARD HCO3 23.3 MEQ/L; VENOUS TOTAL CO2 23.9 MEQ/L (24.0-28.0)
[2020-08-15 05:14] LABS: HEMATOCRIT 21.8 % (42.0-52.0); HEMOGLOBIN 7.2 g/dl (13.5-17.5); MEAN CORPUSCULAR HEMOGLOBIN 33.8 pg (27.0-33.0); MEAN CORPUSCULAR VOLUME 102.3 fl (80.0-96.0); PLATELET COUNT, AUTOMATED 145 10^3/uL (150-450); RED BLOOD COUNT 2.13 10^6/uL (4.30-6.10); WHITE BLOOD COUNT 8.2 10^3/uL (4.0-10.0)
[2020-08-15 05:34] LABS: FERRITIN 84 NG/ML (26-388); IRON (FE) 99 UG/DL (65-175); PERCENT SATURATION 38.1 % (19.7-50.0); TOTAL IRON BINDING CAPACITY 260 UG/DL (250-450)
[2020-08-15 06:28] LABS: ALBUMIN 2.6 GM/DL (3.2-5.2); ALT/SGPT 23 U/L (12-78); BILIRUBIN,TOTAL 0.3 MG/DL (0.2-1.0); BLOOD UREA NITROGEN 29 MG/DL (7-18); CALCIUM LEVEL 7.5 MG/DL (8.5-10.1); CARBON DIOXIDE LEVEL 24 MEQ/L (21-32); CHLORIDE LEVEL 107 MEQ/L (98-107); GLOMERULAR FILTRATION RATE > 60.0 (>60); GLUCOSE, FASTING 193 MG/DL (70-100); POTASSIUM SERUM 3.6 MEQ/L (3.5-5.1); SODIUM LEVEL 137 MEQ/L (136-145); TOTAL PROTEIN 5.9 GM/DL (6.4-8.2)
[2020-08-15] MEDS: CEFEPIME HCL 2 GM in D5W MINI-BAG PLUS 50 ML IV SCH ×2 (06:30→17:40)
[2020-08-15] MEDS ORDERED: SODIUM PHOSPHATE INJ 30 MMOL in D5W 500 ML IV ONE (07:00)
[2020-08-15] MEDS: HumaLOG INSULIN (NovoLOG) PER UNIT SC SCH ×5 (07:43→20:53)
--- NOTE | 2020-08-15 08:05 | REP ---
INDICATION: left knee ulcer COMPARISON: None. TECHNIQUE: Portable AP and lateral views of the left knee. FINDINGS: Lateral view best demonstrates anterior prepatellar swelling and small associated skin ulceration. The osseous structures appear intact and normal. No obvious joint effusion identified. IMPRESSION: Anterior swelling with small skin ulceration overlying the knee/patella <Electronically signed by David Youngblood > 08/15/20 0892
[2020-08-15] MEDS: FOLIC ACID 1 MG TAB PO SCH (08:23)
[2020-08-15] MEDS: THIAMINE 100 MG TAB PO SCH ×2 (08:24→21:40)
[2020-08-15] MEDS: PANTOPRAZOLE 40MG VIAL (C9113 PER 1) IV SCH ×2 (08:24→21:40)
[2020-08-15] MEDS: MULTIVITAMINS/MINERALS THERAP 1 TAB PO SCH (08:24)
[2020-08-15] MEDS: NICOTINE 21MG/24HR 1 EA TRANSDERMAL TD SCH (08:28)
[2020-08-15] MEDS ORDERED: ENOXAPARIN 40MG/0.4ML SYRINGE (J1650 PER 10MG) SC SCH (09:00)
[2020-08-15 10:13] LABS: VITAMIN B12 LEVEL 415 PG/ML (247-911)
[2020-08-15] MEDS: NORCO, ANEXSIA 5/325MG TABLET (HYDROcodone/ACETAMINOPHEN) PO PRN ×2 (10:25→23:26)
[2020-08-15] MEDS ORDERED: LACTIC ACID 12% LOTION 225 GM BTL TOP PRN (11:00)
--- NOTE | 2020-08-15 11:13 | IPNPDOC ---
Text Note Date of Service The patient was seen on 08/15/20. NOTE SUBJECTIVE: -mildly tremulous and reports a history of "shakes" when he held alcohol before -No abdominal pain, no chest pain, palpitations, shortness of breath, fever, chills. PHYSICAL EXAMINATION: VITAL SIGNS: see below GENERAL: Alert, in no acute distress, mildly tremulous HEENT: Normocephalic, atraumatic, PERRLA, EOMI, sclera anicteric, moist mucous membranes NECK: Supple, trachea midline CARDIOVASCULAR: Tachycardic with regular rhythm, normal S1 and S2. No murmurs, r ubs, or gallops RESPIRATORY: Clear to auscultation bilaterally with equal air entry bilaterally. No wheezing, rhonchi, or rales. ABDOMEN: Obese, soft, nontender, nondistended, bowel sounds present. Umbilical hernia present which is not easily reducible and is nontender. EXTREMITIES: No cyanosis or edema, s/p multiple toe amputations SKIN: ulceration on the distal plantar surface on the left foot without drainage, erythema, or warmth. superficial ulceration on the left knee without drainage, erythema, or warmth. NEUROLOGIC: Alert and oriented x3 to person, place and time. No focal deficits appreciated, mildly tremulous PSYCHIATRIC: Mood and affect appropriate LABORATORY DATA: reviewed IMAGING: - CXR: No active disease. -L foot complete XR: Soft tissue swelling over the residual 1st toe with somewhat washed out irregular appearance to the cortex at the residual distal aspect of the 1st metatarsal bone is concerning for osteomyelitis. IMPRESSION: Findings concerning for osteomyelitis involving the distal aspect of the residual 1st metatarsal bone. -L knee XR: Lateral view best demonstrates anterior prepatellar swelling and small associated skin ulceration. The osseous structures appear intact and normal. No obvious joint effusion identified. IMPRESSION: Anterior swelling with small skin ulceration overlying the knee/patella MICROBIOLOGY: Please see below. ASSESSMENT: 44 year old M with IDDM, PVD, prior osteomyelitis, s/p bilateral great toes amputations, and alcohol abuse, who presented to the ED after being found lethargic on his floor and admitted for DKA and alcohol withdrawal, anemia and L foot osteomyelitis. PLAN: 1. Diabetic ketoacidosis 2/2 alcohol abuse, dehydration, medication noncompliance and potential contribution from L foot osteomyelitis - s/p Insulin drip and closure of gap, now on FSBG ACHS with SSI, and restarting levemir QHS -s/p aggressive fluids and electrolyte repletion. -daily BMP Anemia likely acute 2/2 to GI bleed vs chronic 2/2 alcohol abuse - last H/H on record was normal 1 year ago, difficult to assess whether acute or chronic - check stool occult blood. -trend H/H q12h to help assess for actively bleeding - macrocytosis likely related to alcohol abuse - 2u pRBCs, to goal Hgb >8 Diabetic foot ulcer with known osteomyelitis per Dr. Varela but has been c/b with missing apppointments etc - Foot XR highly suggestive of osteomyelitis --> per discussion with Dr. Varela, no need for further imaging --> had been planning to take him to the OR and will do so likely tomorrow depending on the OR schedule - abx coverage with cefepime and vancomycin given history of MRSA and enterobacter in mixed jackie from prior wound cultures - blood cultures x2 NGTD - Dr. Vaerla who has been consulted Alcohol withdrawal - CIWA protocol with PO ativan PRN - supplement thiamine, folic acid, multivitamin Tobacco dependence - nicotine patch while inpatient - smoking cessation counselling DVT prophylaxis: TEDs and SCDs, given recent history of melena and anemia. Disposition: medsurg VS,Fede, I+O VS, [place], I+O Laboratory Tests 08/14/20 16:47 08/14/20 21:42 08/15/20 00:01 08/15/20 04:56 Vital Signs Date Time Temp Pulse Resp B/P (MAP) Pulse Ox O2 Delivery O2 Flow Rate FiO2 08/15/20 10:25 18 98 Room Air 08/15/20 10:22 97.8 101 148/62 I&O- Last 24 Hours up to 6 AM 08/15/20 06:00 Intake Total 1610 ml Output Total 600 ml Balance 1010 ml DOROTEO GARCIA MD Aug 15, 2020 11:13
[2020-08-15] MEDS: VITAMIN D 1,000 INTERNATIONAL UNITS TABLET PO SCH ×2 (12:32→21:40)
[2020-08-15 15:25] LABS: HEMATOCRIT 25.1 % (42.0-52.0); HEMOGLOBIN 8.3 g/dl (13.5-17.5)
[2020-08-15 16:03] LABS: FOLATE 7.6 NG/ML (>5.4)
[2020-08-15 20:06] LABS: HEMATOCRIT 24.9 % (42.0-52.0); HEMOGLOBIN 8.3 g/dl (13.5-17.5)
[2020-08-15] MEDS: LEVEMIR (INSULIN DETEMIR) 1 UNITS/0.01ML SC SCH (21:41)
[2020-08-16] MEDS: VANCOMYCIN HCL 1,000 MG, VIAL MATE ADAPTER 1 EACH in NS 250 ML IV SCH ×4 (02:41→21:37)
[2020-08-16 02:57] LABS: HEMATOCRIT 25.4 % (42.0-52.0); HEMOGLOBIN 8.3 g/dl (13.5-17.5)
[2020-08-16 05:00] VITALS: BP 147/90
[2020-08-16 06:00] VITALS: BP 147/90
[2020-08-16] MEDS: CEFEPIME HCL 2 GM in D5W MINI-BAG PLUS 50 ML IV SCH ×2 (06:09→18:20)
[2020-08-16 07:21] VITALS: BP 146/87
[2020-08-16] MEDS: HumaLOG INSULIN (NovoLOG) PER UNIT SC SCH ×4 (07:30→21:00)
[2020-08-16 07:51] LABS: ALBUMIN 2.5 GM/DL (3.2-5.2); ALT/SGPT 56 U/L (12-78); BILIRUBIN,TOTAL 0.3 MG/DL (0.2-1.0); BLOOD UREA NITROGEN 15 MG/DL (7-18); CALCIUM LEVEL 7.8 MG/DL (8.5-10.1); CARBON DIOXIDE LEVEL 27 MEQ/L (21-32); CHLORIDE LEVEL 107 MEQ/L (98-107); GLOMERULAR FILTRATION RATE > 60.0 (>60); GLUCOSE, FASTING 92 MG/DL (70-100); POTASSIUM SERUM 3.6 MEQ/L (3.5-5.1); SODIUM LEVEL 138 MEQ/L (136-145); TOTAL PROTEIN 6.1 GM/DL (6.4-8.2)
[2020-08-16] MEDS: PANTOPRAZOLE 40MG VIAL (C9113 PER 1) IV SCH ×2 (08:40→21:37)
[2020-08-16] MEDS: NICOTINE 21MG/24HR 1 EA TRANSDERMAL TD SCH (08:41)
[2020-08-16] MEDS: MULTIVITAMINS/MINERALS THERAP 1 TAB PO SCH (08:41)
[2020-08-16] MEDS: FOLIC ACID 1 MG TAB PO SCH (08:41)
[2020-08-16] MEDS: VITAMIN D 1,000 INTERNATIONAL UNITS TABLET PO SCH ×2 (08:42→21:38)
[2020-08-16] MEDS: THIAMINE 100 MG TAB PO SCH ×2 (08:42→21:38)
[2020-08-16 09:02] LABS: HEMATOCRIT 25.3 % (42.0-52.0); HEMOGLOBIN 8.5 g/dl (13.5-17.5)
--- NOTE | 2020-08-16 13:30 | IPNPDOC ---
Text Note Date of Service The patient was seen on 08/16/20. NOTE SUBJECTIVE: -No abdominal pain, no chest pain, palpitations, shortness of breath, fever, chills. PHYSICAL EXAMINATION: VITAL SIGNS: see below GENERAL: Alert, in no acute distress HEENT: Normocephalic, atraumatic, PERRLA, EOMI, sclera anicteric, moist mucous membranes NECK: Supple, trachea midline CARDIOVASCULAR: Tachycardic with regular rhythm, normal S1 and S2. No murmurs, rubs, or gallops RESPIRATORY: Clear to auscultation bilaterally with equal air entry bilaterally. No wheezing, rhonchi, or rales. ABDOMEN: Obese, soft, nontender, nondistended, bowel sounds present. Umbilical hernia present which is not easily reducible and is nontender. EXTREMITIES: No cyanosis or edema, s/p multiple toe amputations SKIN: ulceration on the distal plantar surface on the left foot without drainage, erythema, or warmth. superficial ulceration on the left knee without drainage, erythema, or warmth. NEUROLOGIC: Alert and oriented x3 to person, place and time. No focal deficits a ppreciated, no tremor this AM PSYCHIATRIC: Mood and affect appropriate LABORATORY DATA: reviewed IMAGING: - CXR: No active disease. -L foot complete XR: Soft tissue swelling over the residual 1st toe with somewhat washed out irregular appearance to the cortex at the residual distal aspect of the 1st metatarsal bone is concerning for osteomyelitis. IMPRESSION: Findings concerning for osteomyelitis involving the distal aspect of the residual 1st metatarsal bone. -L knee XR: Lateral view best demonstrates anterior prepatellar swelling and small associated skin ulceration. The osseous structures appear intact and normal. No obvious joint effusion identified. IMPRESSION: Anterior swelling with small skin ulceration overlying the knee/patella MICROBIOLOGY: Please see below. ASSESSMENT: 44 year old M with IDDM, PVD, prior osteomyelitis, s/p bilateral great toes amputations, and alcohol abuse, who presented to the ED after being found lethargic on his floor and admitted for DKA and alcohol withdrawal, anemia and L foot osteomyelitis. PLAN: 1. Diabetic ketoacidosis 2/2 alcohol abuse, dehydration, medication noncompliance and potential contribution from L foot osteomyelitis - s/p Insulin drip and closure of gap, now on FSBG ACHS with SSI, and levemir QHS -s/p aggressive fluids and electrolyte repletion. -daily BMP Anemia likely acute 2/2 to GI bleed vs chronic 2/2 alcohol abuse - last H/H on record was normal 1 year ago, difficult to assess whether acute or chronic - check stool occult blood. - daily CBC - macrocytosis likely related to alcohol abuse - 2u pRBCs, to goal Hgb >8 Diabetic foot ulcer with known osteomyelitis per Dr. Varela but has been c/b with missing apppointments etc - Foot XR highly suggestive of osteomyelitis --> per discussion with Dr. Varela, no need for further imaging --> is going to the OR this afternoon? NPO per Dr. Varela - abx coverage with cefepime and vancomycin given history of MRSA and enterobacter in mixed jackie from prior wound cultures. Thus far surface wound culture with staph and corynebac - blood cultures x2 NGTD - Dr. Varela consulted Alcohol withdrawal - CIWA protocol with PO ativan PRN - supplement thiamine, folic acid, multivitamin Tobacco dependence - nicotine patch while inpatient - smoking cessation counselling DVT prophylaxis: TEDs and SCDs, given recent history of melena and anemia. Disposition: medsurg VS,Fishbone, I+O VS, Fishbone, I+O Laboratory Tests 08/15/20 15:06 08/15/20 19:54 08/16/20 02:47 08/16/20 06:16 08/16/20 08:48 Vital Signs Date Time Temp Pulse Resp B/P (MAP) Pulse Ox O2 Delivery O2 Flow Rate FiO2 08/16/20 07:21 92 146/87 08/16/20 06:00 98.7 18 98 Room Air I&O- Last 24 Hours up to 6 AM 08/16/20 06:00 Intake Total 3362 ml Output Total 1760 ml Balance 1602 ml DOROTEO GARCIA MD Aug 16, 2020 13:30
[2020-08-16 14:00] VITALS: BP 146/87
[2020-08-16] MEDS ORDERED: LIDOCAINE 1% MDV 20ML VIAL As Ordered ONE (15:37)
[2020-08-16] MEDS ORDERED: BUPIVACAINE HCL 0.5% 10ML VIAL As Ordered ONE (15:37)
[2020-08-16] MEDS ORDERED: propofoL 200 MG/20 ML VIAL As Ordered ONE (16:45)
[2020-08-16] MEDS ORDERED: LIDOCAINE 2% 100MG/5ML SDV (FOR ANES.) As Ordered ONE (16:45)
[2020-08-16] MEDS ORDERED: KETAMINE HCL 200 MG/20 ML VIAL As Ordered ONE (16:57)
[2020-08-16 18:09] VITALS: BP 145/88
[2020-08-16] MEDS: LEVEMIR (INSULIN DETEMIR) 1 UNITS/0.01ML SC SCH (21:38)
[2020-08-16 22:00] VITALS: BP 138/86
[2020-08-16] MEDS: NORCO, ANEXSIA 5/325MG TABLET (HYDROcodone/ACETAMINOPHEN) PO PRN (23:10)
[2020-08-17 01:00] VITALS: BP 138/86
[2020-08-17] MEDS: VANCOMYCIN HCL 1,000 MG, VIAL MATE ADAPTER 1 EACH in NS 250 ML IV SCH ×4 (02:31→20:53)
[2020-08-17] MEDS: CEFEPIME HCL 2 GM in D5W MINI-BAG PLUS 50 ML IV SCH (05:32)
[2020-08-17 06:00] VITALS: BP 143/87
[2020-08-17 07:00] VITALS: BP 124/77
[2020-08-17 07:04] LABS: HEMATOCRIT 25.6 % (42.0-52.0); HEMOGLOBIN 8.5 g/dl (13.5-17.5); MEAN CORPUSCULAR HEMOGLOBIN 33.5 pg (27.0-33.0); MEAN CORPUSCULAR HGB CONC 33.2 g/dl (32.0-36.5); MEAN CORPUSCULAR VOLUME 100.8 fl (80.0-96.0); PLATELET COUNT, AUTOMATED 166 10^3/uL (150-450); RED BLOOD COUNT 2.54 10^6/uL (4.30-6.10); WHITE BLOOD COUNT 7.1 10^3/uL (4.0-10.0)
[2020-08-17 07:18] LABS: BLOOD UREA NITROGEN 12 MG/DL (7-18); CARBON DIOXIDE LEVEL 26 MEQ/L (21-32); CHLORIDE LEVEL 104 MEQ/L (98-107); CREATININE FOR GFR 0.49 MG/DL (0.70-1.30); GLOMERULAR FILTRATION RATE > 60.0 (>60); GLUCOSE, FASTING 97 MG/DL (70-100); POTASSIUM SERUM 3.7 MEQ/L (3.5-5.1); SODIUM LEVEL 136 MEQ/L (136-145)
[2020-08-17] MEDS: HumaLOG INSULIN (NovoLOG) PER UNIT SC SCH ×4 (07:27→20:54)
--- NOTE | 2020-08-17 09:58 | RO ---
OPERATIVE NOTE DATE OF OPERATION: 08/16/2020 PREOPERATIVE DIAGNOSIS: Left foot wound and bone infection POSTOPERATIVE DIAGNOSIS: Left foot wound and bone infection. PROCEDURE: Left foot 1st metatarsal head excision. SURGEON: Sandeep Varela DPM AERONAUTICAL ENGINEER: None. ANESTHESIA: Monitored anesthesia care, preop injection of 20 mL of 1:1 mixture of 1% Lidocaine plain and 0.5% Marcaine plain. ESTIMATED BLOOD LOSS: Minimal. MATERIALS: 3-0 nylon. INJECTABLES: None. SPECIMEN: Left 1st metatarsal bone. Ankit Taylor is a 44-year-old male, well known to [facility], who has had chronic ulceration of his left foot. He had previous hallux amputation. He has persisting ulceration of the remaining portion of his 1st metatarsal bone. X-rays were taken which showed signs suspicious of osteomyelitis. Decision was made to bring him to the operating room for 1st metatarsal head excision. The patient's site and side were identified and marked preoperative area. Consent was reviewed and obtained. Risks, complications and alternatives to the procedure were explained to the patient in detail. All questions were answered. DESCRIPTION OF PROCEDURE: The patient was brought to the operating room and placed on stretcher in supine position. Monitored anesthesia care was delivered by the anesthesia team. Preoperative injection of 20 mL of 1:1 mixture of 1% Lidocaine plain and 0.5% Marcaine plain was injected into the left foot. The foot was prepped and draped in normal sterile fashion. Tourniquet was applied to the left ankle and inflated to 225 mmHg. Dorsal incision was drawn over the metatarsal head and carried through with #15 blade full thickness to the bone. Overlying soft tissue attachments and adhesions were released; bone was inspected and was noted to be irregular distally with erosive changes. Culture swabs were taken from the bone surface. The wound did communicate with the bone. Metatarsal head was excised using sagittal saw and sent for pathology. Site was irrigated with normal saline. Any remaining bone fragments or nonviable tissue was removed using #15 blade. Site was irrigated once more and the incision was closed using 3-0 nylon. Sterile dressings were applied. Tourniquet was deflated. The patient was brought to PACU with vital signs stable and neurovascular status intact. He will be readmitted to the floor for antibiotics. AMBROCIO
[2020-08-17] MEDS: PANTOPRAZOLE 40MG VIAL (C9113 PER 1) IV SCH ×2 (10:07→20:54)
[2020-08-17] MEDS: VITAMIN D 1,000 INTERNATIONAL UNITS TABLET PO SCH ×2 (10:08→20:54)
[2020-08-17] MEDS: FOLIC ACID 1 MG TAB PO SCH (10:08)
[2020-08-17] MEDS: MULTIVITAMINS/MINERALS THERAP 1 TAB PO SCH (10:08)
[2020-08-17] MEDS: NICOTINE 21MG/24HR 1 EA TRANSDERMAL TD SCH (10:08)
[2020-08-17] MEDS: THIAMINE 100 MG TAB PO SCH (10:08)
[2020-08-17] MEDS: NORCO, ANEXSIA 5/325MG TABLET (HYDROcodone/ACETAMINOPHEN) PO PRN ×2 (10:09→17:37)
--- NOTE | 2020-08-17 10:12 | IPNPDOC ---
Text Note Date of Service The patient was seen on 08/17/20. NOTE Subjective: -Had L 1st metatarsal excision surgery by Dr. Varela yesterday -No abdominal pain, no chest pain, palpitations, shortness of breath, fever, chills. PHYSICAL EXAMINATION: VITAL SIGNS: see below GENERAL: Alert, in no acute distress HEENT: Normocephalic, atraumatic, PERRLA, EOMI, sclera anicteric, moist mucous membranes NECK: Supple, trachea midline CARDIOVASCULAR: Tachycardic with regular rhythm, normal S1 and S2. No murmurs, rubs, or gallops RESPIRATORY: Clear to auscultation bilaterally with equal air entry bilaterally. No wheezing, rhonchi, or rales. ABDOMEN: Obese, soft, nontender, nondistended, bowel sounds present. Umbilical hernia present which is not easily reducible and is nontender. EXTREMITIES: No cyanosis or edema, s/p multiple toe amputations SKIN: left foot dressing in place, c/d/i, left knee without drainage, erythema, or warmth. NEUROLOGIC: Alert and oriented x3 to person, place and time. No focal deficits appreciated, no tremor this AM PSYCHIATRIC: Mood and affect appropriate LABORATORY DATA: reviewed IMAGING: - CXR: No active disease. -L foot complete XR: Soft tissue swelling over the residual 1st toe with somewhat washed out irregular appearance to the cortex at the residual distal aspect of the 1st metatarsal bone is concerning for osteomyelitis. IMPRESSION: Findings concerning for osteomyelitis involving the distal aspect of the residual 1st metatarsal bone. -L knee XR: Lateral view best demonstrates anterior prepatellar swelling and small associated skin ulceration. The osseous structures appear intact and normal. No obvious joint effusion identified. IMPRESSION: Anterior swelling with small skin ulceration overlying the knee/patella MICROBIOLOGY: Please see below. ASSESSMENT: 44 year old M with IDDM, PVD, prior osteomyelitis, s/p bilateral great toes amputations, and alcohol abuse, who presented to the ED after being found lethargic on his floor and admitted for DKA and alcohol withdrawal, anemia and L foot osteomyelitis. PLAN: 1. Diabetic ketoacidosis 2/2 alcohol abuse, dehydration, medication noncompliance and potential contribution from L foot osteomyelitis - s/p Insulin drip and closure of gap, now on FSBG ACHS with SSI, and levemir QHS -s/p aggressive fluids and electrolyte repletion. -daily BMP Anemia likely acute 2/2 to GI bleed vs chronic 2/2 alcohol abuse - last H/H on record was normal 1 year ago, difficult to assess whether acute or chronic - check stool occult blood. - daily CBC - macrocytosis likely related to alcohol abuse - 2u pRBCs, to goal Hgb >8 Diabetic foot ulcer with known osteomyelitis per Dr. Vaerla but has been c/b with missing apppointments etc - Foot XR highly suggestive of osteomyelitis --> per discussion with Dr. Varela, no need for further imaging --> Had L 1st metatarsal excision surgery by Dr. Varela yesterday - abx coverage with vancomycin given history of MRSA though most recent MRSA screen was negative with pending cultures and pending discussion with podiatry. Will dc cefepime at this time. - blood cultures x2 NGTD - On speaking with Dr. Varela, he is confident he had good margins and likely took out all the infected foot and he would require about 2 weeks on PO antibiotic coverage. He did recommend that he stays on IV abx through the weekend and switch to PO perhaps on Wednesday with c/f that he would start using the foot and is noncompliant and get reinfected. Alcohol withdrawal - CIWA protocol with PO ativan PRN - supplement thiamine, folic acid, multivitamin Tobacco dependence - nicotine patch while inpatient - smoking cessation counselling DVT prophylaxis: TEDs and SCDs, given recent history of melena and anemia. Disposition: medsurg VS,Fishbone, I+O VS, Fishbone, I+O Laboratory Tests 08/16/20 08:48 08/17/20 06:40 Vital Signs Date Time Temp Pulse Resp B/P (MAP) Pulse Ox O2 Delivery O2 Flow Rate FiO2 08/17/20 06:00 99.0 94 18 143/87 (105) 99 Room Air 08/16/20 17:50 2 I&O- Last 24 Hours up to 6 AM 08/17/20 06:00 Intake Total 2590 ml Output Total 2805 ml Balance -215 ml DOROTEO GARCIA MD Aug 17, 2020 08:36
[2020-08-17 11:00] VITALS: BP 135/82
--- NOTE | 2020-08-17 11:29 | CR ---
CONSULTATION DATE: 08/16/2020 REASON FOR CONSULTATION: Left foot infection. HISTORY OF PRESENT ILLNESS: Ankit Taylor is patient well known to me who has had chronic ulceration to his left foot. He had had plans for removal of remaining metatarsal bone. He missed his appointment. He is generally noncompliant, only attending about every other scheduled office visit. He was admitted to the hospital and noted to have infection in his left foot. The decision was made to bring him to the Operating Room while admitted for planned metatarsal amputation. PAST MEDICAL HISTORY: Includes diabetes, neuropathy, anxiety, depression, hypertension, peripheral vascular disease, osteomyelitis, Vitamin D deficiency. PAST SURGICAL HISTORY: Includes toe amputations both feet, tonsillectomy. SOCIAL HISTORY: Positive for alcohol abuse. Positive for smoking. ALLERGIES: No known drug allergies. REVIEW OF SYSTEMS: He denies recent nausea, vomiting, fever or chills. PHYSICAL EXAMINATION: Vital signs; he has been afebrile. Lower extremity examination; there is edema to the left lower leg. There is an ulceration with probe to bone from the previous hallux amputation site. LABORATORY DATA: Reviewed. White blood cell count 8.2, hemoglobin 8.5 today. ASSESSMENT: Patient with osteomyelitis first metatarsal, diabetes with neuropathy. PLAN: Patient for OR now for first metatarsal head excision. Continue antibiotics. Will take OR cultures.
[2020-08-17 14:00] VITALS: BP 124/83
[2020-08-17] MEDS: LEVEMIR (INSULIN DETEMIR) 1 UNITS/0.01ML SC SCH (20:54)
[2020-08-17 22:00] VITALS: BP 119/70
[2020-08-18] MEDS: VANCOMYCIN HCL 1,000 MG, VIAL MATE ADAPTER 1 EACH in NS 250 ML IV SCH (02:30)
[2020-08-18 06:00] VITALS: BP 128/73
[2020-08-18 07:26] LABS: HEMATOCRIT 25.3 % (42.0-52.0); HEMOGLOBIN 8.3 g/dl (13.5-17.5); MEAN CORPUSCULAR HEMOGLOBIN 33.6 pg (27.0-33.0); MEAN CORPUSCULAR HGB CONC 32.8 g/dl (32.0-36.5); MEAN CORPUSCULAR VOLUME 102.4 fl (80.0-96.0); PLATELET COUNT, AUTOMATED 186 10^3/uL (150-450); RED BLOOD COUNT 2.47 10^6/uL (4.30-6.10); WHITE BLOOD COUNT 6.5 10^3/uL (4.0-10.0)
[2020-08-18 07:51] LABS: BLOOD UREA NITROGEN 15 MG/DL (7-18); CALCIUM LEVEL 8.2 MG/DL (8.5-10.1); CARBON DIOXIDE LEVEL 24 MEQ/L (21-32); CHLORIDE LEVEL 105 MEQ/L (98-107); CREATININE FOR GFR 0.49 MG/DL (0.70-1.30); GLOMERULAR FILTRATION RATE > 60.0 (>60); GLUCOSE, FASTING 104 MG/DL (70-100); POTASSIUM SERUM 3.9 MEQ/L (3.5-5.1); SODIUM LEVEL 136 MEQ/L (136-145)
--- NOTE | 2020-08-18 09:33 | IPNPDOC ---
Text Note Date of Service The patient was seen on 08/18/20. NOTE Subjective: -POD2 s/p L 1st metatarsal excision surgery by Dr. Varela -No abdominal pain, no chest pain, palpitations, shortness of breath, fever, chills. PHYSICAL EXAMINATION: VITAL SIGNS: see below GENERAL: Alert, in no acute distress HEENT: Normocephalic, atraumatic, PERRLA, EOMI, sclera anicteric, moist mucous membranes NECK: Supple, trachea midline CARDIOVASCULAR: Tachycardic with regular rhythm, normal S1 and S2. No murmurs, rubs, or gallops RESPIRATORY: Clear to auscultation bilaterally with equal air entry bilaterally. No wheezing, rhonchi, or rales. ABDOMEN: Obese, soft, nontender, nondistended, bowel sounds present. Umbilical hernia present which is not easily reducible and is nontender. EXTREMITIES: No cyanosis or edema, s/p multiple toe amputations SKIN: left foot dressing in place, c/d/i, left knee without drainage, erythema, or warmth. NEUROLOGIC: Alert and oriented x3 to person, place and time. No focal deficits appreciated, no tremor this AM PSYCHIATRIC: Mood and affect appropriate LABORATORY DATA: reviewed IMAGING: - CXR: No active disease. -L foot complete XR: Soft tissue swelling over the residual 1st toe with somewhat washed out irre gular appearance to the cortex at the residual distal aspect of the 1st metatarsal bone is concerning for osteomyelitis. IMPRESSION: Findings concerning for osteomyelitis involving the distal aspect of the residual 1st metatarsal bone. -L knee XR: Lateral view best demonstrates anterior prepatellar swelling and small associated skin ulceration. The osseous structures appear intact and normal. No obvious joint effusion identified. IMPRESSION: Anterior swelling with small skin ulceration overlying the knee/patella MICROBIOLOGY: Please see below. ASSESSMENT: 44 year old M with IDDM, PVD, prior osteomyelitis, s/p bilateral great toes amputations, and alcohol abuse, who presented to the ED after being found lethargic on his floor and admitted for DKA and alcohol withdrawal, anemia and L foot osteomyelitis. PLAN: 1. Diabetic ketoacidosis 2/2 alcohol abuse, dehydration, medication non compliance and potential contribution from L foot osteomyelitis -s/p Insulin drip and closure of gap, now on FSBG ACHS with SSI, and levemir QHS -s/p aggressive fluids and electrolyte repletion. -daily BMP Anemia likely chronic possibly 2/2 alcohol abuse vs. slow GI bleeding vs. Fe deficiency stable after repletion with 2u - last H/H on record was normal 1 year ago, difficult to assess whether acute or chronic - check stool occult blood. - daily CBC - macrocytosis likely related to alcohol abuse - 2u pRBCs, to goal Hgb >8 - Mild iron deficiency with ferritin of 88, will give daily PO iron Diabetic foot ulcer with known osteomyelitis per Dr. Varela but has been c/b with missing apppointments etc - Foot XR highly suggestive of osteomyelitis --> POD 2 s/p L 1st metatarsal excision surgery by Dr. Varela - DC vanc, start keflex given no MRSA - blood cultures x2 NGTD - On speaking with Dr. Varela, he is confident he had good margins and likely took out all the infected foot and he would require about 2 weeks on PO antibiotic coverage. He did recommend that he stays on IV abx 1 more day, and staying through the weekend with c/f that he would start using the foot and is noncompliant and could get reinfected. Alcohol withdrawal: resolved - s/p CIWA protocol with PO ativan PRN - supplement thiamine, folic acid, multivitamin Tobacco dependence - nicotine patch while inpatient - smoking cessation counselling DVT prophylaxis: TEDs and SCDs, given recent history of melena and anemia. Disposition: medsurg VS,Fishbone, I+O VS, Fishbone, I+O Laboratory Tests 08/18/20 07:00 Vital Signs Date Time Temp Pulse Resp B/P (MAP) Pulse Ox O2 Delivery O2 Flow Rate FiO2 08/18/20 06:00 98.8 89 18 128/73 (91) 93 Room Air 08/16/20 17:50 2 I&O- Last 24 Hours up to 6 AM 08/18/20 06:00 Intake Total 2880 ml Output Total 2615 ml Balance 265 ml DOROTEO GARCIA MD Aug 18, 2020 08:22
[2020-08-18] MEDS: MULTIVITAMINS/MINERALS THERAP 1 TAB PO SCH (09:42)
[2020-08-18] MEDS: FOLIC ACID 1 MG TAB PO SCH (09:42)
[2020-08-18] MEDS: VITAMIN D 1,000 INTERNATIONAL UNITS TABLET PO SCH ×2 (09:42→21:25)
[2020-08-18] MEDS: FERROUS SULFATE 325MG TAB PO SCH (09:42)
[2020-08-18] MEDS: PANTOPRAZOLE 40MG VIAL (C9113 PER 1) IV SCH ×2 (09:43→21:26)
[2020-08-18] MEDS: HumaLOG INSULIN (NovoLOG) PER UNIT SC SCH ×4 (09:43→21:00)
[2020-08-18] MEDS: NICOTINE 21MG/24HR 1 EA TRANSDERMAL TD SCH (09:45)
[2020-08-18] MEDS: CEPHALEXIN 250MG CAPSULE PO SCH ×2 (12:53→17:56)
[2020-08-18 14:00] VITALS: BP 157/87
[2020-08-18] MEDS: NORCO, ANEXSIA 5/325MG TABLET (HYDROcodone/ACETAMINOPHEN) PO PRN (14:04)
[2020-08-18] MEDS: LEVEMIR (INSULIN DETEMIR) 1 UNITS/0.01ML SC SCH (21:26)
[2020-08-18 22:00] VITALS: BP 151/88
[2020-08-19] MEDS: CEPHALEXIN 250MG CAPSULE PO SCH ×2 (00:28→05:49)
[2020-08-19] MEDS: NORCO, ANEXSIA 5/325MG TABLET (HYDROcodone/ACETAMINOPHEN) PO PRN ×3 (00:32→21:20)
[2020-08-19 06:00] VITALS: BP 124/82
[2020-08-19] MEDS ORDERED: PROT1TAB2 PO (08:51)
[2020-08-19] MEDS ORDERED: FOLI1TAB11 PO (08:51)
[2020-08-19] MEDS ORDERED: FERR325T18 PO (08:51)
[2020-08-19] MEDS ORDERED: DOXY-350 PO (08:51)
[2020-08-19] MEDS ORDERED: VITMTA PO (08:51)
[2020-08-19] MEDS: NICOTINE 21MG/24HR 1 EA TRANSDERMAL TD SCH (09:51)
[2020-08-19] MEDS: PANTOPRAZOLE 40MG VIAL (C9113 PER 1) IV SCH ×2 (09:52→21:20)
[2020-08-19] MEDS: FOLIC ACID 1 MG TAB PO SCH (09:52)
[2020-08-19] MEDS: HumaLOG INSULIN (NovoLOG) PER UNIT SC SCH ×4 (09:52→20:59)
[2020-08-19] MEDS: VITAMIN D 1,000 INTERNATIONAL UNITS TABLET PO SCH ×2 (09:52→21:19)
[2020-08-19] MEDS: MULTIVITAMINS/MINERALS THERAP 1 TAB PO SCH (09:52)
[2020-08-19] MEDS: DOXYCYCLINE HYCLATE 100MG TABLET PO SCH ×2 (09:52→21:20)
[2020-08-19] MEDS: FERROUS SULFATE 325MG TAB PO SCH (09:52)
--- NOTE | 2020-08-19 12:47 | IPNPDOC ---
Text Note Date of Service The patient was seen on 08/19/20. NOTE Subjective: -POD3 s/p L 1st metatarsal excision surgery by Dr. Varela -No abdominal pain, no chest pain, palpitations, shortness of breath, fever, chills. PHYSICAL EXAMINATION: VITAL SIGNS: see below GENERAL: Alert, in no acute distress HEENT: Normocephalic, atraumatic, PERRLA, EOMI, sclera anicteric, moist mucous membranes NECK: Supple, trachea midline CARDIOVASCULAR: Tachycardic with regular rhythm, normal S1 and S2. No murmurs, rubs, or gallops RESPIRATORY: Clear to auscultation bilaterally with equal air entry bilaterally. No wheezing, rhonchi, or rales. ABDOMEN: Obese, soft, nontender, nondistended, bowel sounds present. Umbilical hernia present which is not easily reducible and is nontender. EXTREMITIES: No cyanosis or edema, s/p multiple toe amputations SKIN: left foot dressing in place, c/d/i, left knee without drainage, erythema, or warmth. NEUROLOGIC: Alert and oriented x3 to person, place and time. No focal deficits appreciated, no tremor this AM PSYCHIATRIC: Mood and affect appropriate LABORATORY DATA: reviewed wound Cx growing MRSA IMAGING: - CXR: No active disease. -L foot complete XR: Soft tissue swelling over the residual 1st toe with somewhat washed out irregular appearance to the cortex at the residual distal aspect of the 1st metatarsal bon e is concerning for osteomyelitis. IMPRESSION: Findings concerning for osteomyelitis involving the distal aspect of the residua l 1st metatarsal bone. -L knee XR: Lateral view best demonstrates anterior prepatellar swelling and small associated skin ulceration. The osseous structures appear intact and normal. No obvious joint effusion identified. IMPRESSION: Anterior swelling with small skin ulceration overlying the knee/patella MICROBIOLOGY: Please see below. ASSESSMENT: 44 year old M with IDDM, PVD, prior osteomyelitis, s/p bilateral great toes amputations, and alcohol abuse, who presented to the ED after being found lethargic on his floor and admitted for DKA and alcohol withdrawal, anemia and L foot osteomyelitis. PLAN: 1. Diabetic ketoacidosis 2/2 alcohol abuse, dehydration, medication noncompliance and potential contribution from L foot osteomyelitis -s/p Insulin drip and closure of gap, now on FSBG ACHS with SSI, and levemir QHS -s/p aggressive fluids and electrolyte repletion. -daily BMP Anemia likely chronic possibly 2/2 alcohol abuse vs. slow GI bleeding vs. Fe deficiency stable after repletion with 2u - last H/H on record was normal 1 year ago, difficult to assess whether acute or chronic - check stool occult blood. - daily CBC - macrocytosis likely related to alcohol abuse - 2u pRBCs, to goal Hgb >8 - Mild iron deficiency with ferritin of 88, will give daily PO iron Diabetic foot ulcer with known osteomyelitis per Dr. Varela but has been c/b with missing apppointments etc - Foot XR highly suggestive of osteomyelitis --> POD 2 s/p L 1st metatarsal excision surgery by Dr. Varela - DC keflex , switch to doxycycline for MRSA soft tissue infection, osteo tx with full amputation with clean margins oer Dr. Varela - blood cultures x2 NGTD -PT recommending rehab --> ARU vs. STR Alcohol withdrawal: resolved - s/p CIWA protocol with PO ativan PRN - supplement thiamine, folic acid, multivitamin Tobacco dependence - nicotine patch while inpatient - smoking cessation counselling DVT prophylaxis: TEDs and SCDs, given recent history of melena and anemia. Disposition: medsurg, PT recommending rehab as of this morning. VS,Fishbone, I+O VS, Fishbone, I+O Vital Signs Date Time Temp Pulse Resp B/P (MAP) Pulse Ox O2 Delivery O2 Flow Rate FiO2 08/19/20 10:29 18 08/19/20 06:00 98.1 88 124/82 (96) 97 Room Air 08/16/20 17:50 2 I&O- Last 24 Hours up to 6 AM 08/19/20 06:00 Intake Total 2480 ml Output Total 1675 ml Balance 805 ml DOROTEO GARCIA MD Aug 19, 2020 12:47
[2020-08-19] MEDS: LEVEMIR (INSULIN DETEMIR) 1 UNITS/0.01ML SC SCH (21:19)
[2020-08-19 22:00] VITALS: BP 132/89
[2020-08-20 06:00] VITALS: BP 136/74
[2020-08-20 06:15] LABS: HEMATOCRIT 26.3 % (42.0-52.0); HEMOGLOBIN 8.4 g/dl (13.5-17.5); MEAN CORPUSCULAR HEMOGLOBIN 33.2 pg (27.0-33.0); MEAN CORPUSCULAR HGB CONC 31.9 g/dl (32.0-36.5); PLATELET COUNT, AUTOMATED 299 10^3/uL (150-450); RED BLOOD COUNT 2.53 10^6/uL (4.30-6.10); WHITE BLOOD COUNT 7.1 10^3/uL (4.0-10.0)
[2020-08-20 06:33] LABS: BLOOD UREA NITROGEN 18 MG/DL (7-18); CALCIUM LEVEL 8.6 MG/DL (8.5-10.1); CARBON DIOXIDE LEVEL 26 MEQ/L (21-32); CHLORIDE LEVEL 104 MEQ/L (98-107); CREATININE FOR GFR 0.53 MG/DL (0.70-1.30); GLOMERULAR FILTRATION RATE > 60.0 (>60); GLUCOSE, FASTING 146 MG/DL (70-100); POTASSIUM SERUM 3.9 MEQ/L (3.5-5.1); SODIUM LEVEL 136 MEQ/L (136-145)
[2020-08-20] MEDS: NICOTINE 21MG/24HR 1 EA TRANSDERMAL TD SCH (08:28)
[2020-08-20] MEDS: FERROUS SULFATE 325MG TAB PO SCH (08:28)
[2020-08-20] MEDS: VITAMIN D 1,000 INTERNATIONAL UNITS TABLET PO SCH (08:28)
[2020-08-20] MEDS: DOXYCYCLINE HYCLATE 100MG TABLET PO SCH (08:28)
[2020-08-20] MEDS: FOLIC ACID 1 MG TAB PO SCH (08:28)
[2020-08-20] MEDS: HumaLOG INSULIN (NovoLOG) PER UNIT SC SCH (08:28)
[2020-08-20] MEDS: MULTIVITAMINS/MINERALS THERAP 1 TAB PO SCH (08:28)
[2020-08-20] MEDS ORDERED: PANTOPRAZOLE 40MG TAB (PROTONIX) PO SCH (09:00)
--- NOTE | 2020-08-20 23:19 | DS.PDOC ---
Discharge Summary General Date of Admission Aug 14, 2020 at 19:38 Date of Discharge Aug 20, 2020 Specialist/[facility], Dr. Varela Discharge Summary PROCEDURES PERFORMED DURING STAY: Left foot 1st metatarsal head excision by Dr. Varela on 08/16/2020 ADMITTING DIAGNOSES: 1. DKA 2. Left foot infection 3. Anemia 4. Suspected bed bugs 5. Alcohol use disorder with intoxication 6. Insulin dependent diabetes mellitus complicated by neuropathy DISCHARGE DIAGNOSES: 1. DKA 2. Left foot infection 3. Anemia 4. Suspected bed bugs 5. Alcohol use disorder with intoxication 6. Insulin dependent diabetes mellitus complicated by neuropathy COMPLICATIONS/CHIEF COMPLAINT: Lethargy. HISTORY OF PRESENT ILLNESS: Mr. Taylor is a 44 year old male with insulin dependent diabetes mellitus who presents with increased lethargy. His friend found the patient passed out on his cough. Patient has been following Dr. Varela for his left foot ulcer. He has been taking Bactrim and reports compliance. Yesterday, he was doing well, but does not remember what happened last night. He did not remember if he took Levemir that night. He woke up this morning slightly confused, but resolved after a few minutes. He took his Bactrim and 4 units of Novolog prior to being brought into the ED. Otherwise, patient reported 3 to 4 days of black, tarry diarrhea. While in the ED, he was found to have high anion gap metabolic acidosis with elevation of ketones. He also had macrocytic anemia. Patient was put on vancomycin and cefepime. Patient was admitted for DKA and left foot infection. HOSPITAL COURSE: Patient's DKA rapidly resolved. Hemoglobin dropped from 9 to 7 and was transfused with 2u pRBC. H&H remained stable afterwards. Unclear if anemia from GI bleed or from alcohol. Imaging of his left foot demonstrated osteomyelitis of the 1st metatarsal. Wound culture grew MRSA and cefepime was discontinued. Podiatry was consulted. Dr. Varela took the patient to the OR on 08/16/2020 for excision of the left 1st metatarsal. Patient was switch to PO doxycycline to continue for a total of 2 weeks of antibiotics after surgery. Physical therapy recommended patient to go to rehab. Patient did not want to go to rehab and was thinking of signing out AMA the night prior. He decided to stay until today. The discussion of rehab was brought up again, and he did not want to go to rehab. He is A&O x3, and he understands that if he signed out against medical advice his foot could worsen, and he could develop sepsis and . Patient signed out against medical advice this morning. DISCHARGE MEDICATIONS: Please see below. ALLERGIES: Please see below. PHYSICAL EXAMINATION ON DISCHARGE: VITAL SIGNS: Please see below. GENERAL: Comfortable, in no apparent distress HEENT: Head normocephalic, atraumatic CARDIOVASCULAR EXAMINATION: Tachycardic but regular RESPIRATORY EXAMINATION: Lungs clear to auscultation bilaterally ABDOMINAL EXAMINATION: Soft, non-tender, normal bowel sounds EXTREMITIES: No pitting edema bilaterally SKIN: Warm and dry NEUROLOGICAL EXAMINATION: CN 3-12 grossly intact, A&Ox3 PSYCHIATRIC EXAMINATION: Normal mood and affect LABORATORY DATA: Please see below. IMAGING: Radiologist interpretation XR left foot Findings concerning for osteomyelitis involving the distal aspect of the residual 1st metatarsal bone. PROGNOSIS: Guarded ACTIVITY: Partial weight bearing status on left foot. DIET: Carbohydrate consistent DISCHARGE PLAN: Left against medical advice DISPOSITION: 07 Against Medical Advice. DISCHARGE INSTRUCTIONS: 1. Return to ED if developing worsening left foot pain, increased drainage, swelling, fever/chills, lightheadedness, or concerning symptoms 2. Follow up with PCP as soon as possible 3. Follow up with Podiatry as soon as possible Vital Signs/I&Os Vital Signs Date Time Temp Pulse Resp B/P (MAP) Pulse Ox O2 Delivery O2 Flow Rate FiO2 08/20/20 06:00 98.2 100 18 136/74 (94) 99 Room Air 08/16/20 17:50 2 I&O- Last 24 Hours up to 6 AM 08/20/20 06:00 Intake Total 2100 ml Output Total 2125 ml Balance -25 ml Laboratory Data Labs 24H Laboratory Tests 2 08/20/20 05:31: Nucleated Red Blood Cells % (auto) 0.0, Anion Gap 6L, Glomerular Filtration Rate > 60.0, Calcium Level 8.6 CBC/BMP Laboratory Tests 08/20/20 05:31 Microbiology Microbiology 08/16/20 Gram Stain - Final, Complete 08/16/20 Wound Culture - Final, Complete Staphylococcus Sp Coag Neg Corynebacterium Species Corynebacterium Species#2 08/16/20 Anaerobic Culture - Final, Complete 08/14/20 Wound Culture - Final, Complete Staph.aureus Methicillin Resis Staphylococcus Sp Coag Neg Corynebacterium Species#2 Corynebacterium Species 08/14/20 Urine Culture - Final, Complete 08/14/20 Blood Culture - Final, Complete NO GROWTH AFTER 5 DAYS 08/14/20 Blood Culture - Final, Complete NO GROWTH AFTER 5 DAYS Discharge Medications Scheduled Cholecalciferol (Vitamin D3) (Vitamin D3) 1,000 Unit Tablet, 1,000 UNITS PO BID, (Reported) Cilostazol (Cilostazol) 50 Mg Tablet, 50 MG PO BID, (Reported) Doxycycline Monohydrate (Doxycycline) 100 Mg Capsule, 1 CAP PO BID Ferrous Sulfate (Ferrous Sulfate) 325 Mg Tablet, 325 MG PO DAILY Folic Acid (Folic Acid) 1 Mg Tablet, 1 MG PO DAILY Insulin Aspart (Novolog Flexpen) 100 Unit/1 Ml Insuln.pen, 1 DOSE SC ACHS, (Reported) PER SLIDING SCALE Insulin Detemir (Levemir) 100 Unit/1 Ml Vial, 20 UNITS SC QHS, (Reported) Multivitamins (Thera M Plus Tablet) 1 Each Tablet, 1 TAB PO DAILY Pantoprazole Sodium (Protonix) 40 Mg Tablet.dr, 1 TAB PO DAILY Scheduled PRN Ammonium Lactate (Ammonium Lactate) 12% Cream..g., 1 DOSE TOP DAILY PRN for DRY SKIN, (Reported) APPLY TO FEET Hydrocodone/Acetaminophen (Hydrocodone-Acetamin 5-325 mg) 1 Each Tablet, 1 TAB PO BID PRN for PAIN, (Reported) Miscellaneous Medications [Patient Comment] , (Reported) UNABLE TO VERIFY MEDICATIONS WITH PATIENT - MED LIST OBTAINED FROM PHARMACY Allergies Coded Allergies: No Known Allergies (Unverified , 01/24/19) HONG HIGUERA DO Aug 20, 2020 23:19
== END 2020-08-20 13:30 | disposition left against medical advice (07) | DRG 629 ==
LOC: EDBD 16:13 → M ED 16:13 → M ED INP 19:38 → ENRESERV 20:01 → M ICU 21:15 → M MSPAV 08-15 18:34
PROVIDERS: ADMIT Internal Medicine; ATTEND Internal Medicine
PROC: 30233N1 Transfusion of Nonautologous Red Blood Cells into Peripheral Vein, Percutaneous Approach (ICD-10-PCS; 2020-08-15)
PROC: 0QBP0ZZ Excision of Left Metatarsal, Open Approach (ICD-10-PCS; principal; 2020-08-16 16:00)
DX: E11.10 Type 2 diabetes mellitus with ketoacidosis without coma (principal); M86.672 Other chronic osteomyelitis, left ankle and foot; L97.528 Non-pressure chronic ulcer of other part of left foot with other specified severity; L97.928 Non-pressure chronic ulcer of unspecified part of left lower leg with other specified severity; F10.188 Alcohol abuse with other alcohol-induced disorder; F10.139 Alcohol abuse with withdrawal, unspecified; I10 Essential (primary) hypertension; D50.9 Iron deficiency anemia, unspecified; E55.9 Vitamin D deficiency, unspecified; F17.200 Nicotine dependence, unspecified, uncomplicated; E86.0 Dehydration; F41.9 Anxiety disorder, unspecified; F32.9 Major depressive disorder, single episode, unspecified; R00.0 Tachycardia, unspecified; Z89.421 Acquired absence of other right toe(s); Z20.822 Contact with and (suspected) exposure to COVID-19; Z89.422 Acquired absence of other left toe(s); Z79.4 Long term (current) use of insulin; Z79.899 Other long term (current) drug therapy; Z91.19 Patient's noncompliance with other medical treatment and regimen; E11.69 Type 2 diabetes mellitus with other specified complication; E11.621 Type 2 diabetes mellitus with foot ulcer; E11.40 Type 2 diabetes mellitus with diabetic neuropathy, unspecified; E11.622 Type 2 diabetes mellitus with other skin ulcer; E11.51 Type 2 diabetes mellitus with diabetic peripheral angiopathy without gangrene

== ENCOUNTER 2020-09-19 14:15 | Emergency (ER) | payer MEDICARE, OTHER ==
[~2020-09-19] VITALS: Ht 177.8 cm; Wt 122.7 kg
[~2020-09-19 14:15] MED LIST changes: +AMMO12CR7 TOP; +DOXY-350 PO; +FERR325T18 PO; +PATIENT COMMENT; +PROT1TAB2 PO; +SULF1TAB93 PO
[2020-09-19 15:19] LABS: BASO % 0.6 % (0.0-1.0); EOS % 0.8 % (0.0-3.0); HEMATOCRIT 40.5 % (42.0-52.0); HEMOGLOBIN 12.8 g/dl (13.5-17.5); LYMPH # 0.9 10^3/uL (1.5-5.0); LYMPH % 19.2 % (24.0-44.0); MEAN CORPUSCULAR HEMOGLOBIN 30.6 pg (27.0-33.0); MEAN CORPUSCULAR HGB CONC 31.6 g/dl (32.0-36.5); MEAN CORPUSCULAR VOLUME 96.9 fl (80.0-96.0); MONO # 0.5 10^3/uL (0.0-0.8); NEUTROPHILS # 3.4 10^3/uL (1.5-8.5); NEUTROPHILS % 69.2 % (36.0-66.0); RED BLOOD COUNT 4.18 10^6/uL (4.30-6.10); WHITE BLOOD COUNT 4.9 10^3/uL (4.0-10.0)
[2020-09-19 15:29] LABS: INR 0.93; PROTHROMBIN TIME 12.7 SECONDS (12.5-14.3)
[2020-09-19 15:38] LABS: PLATELET COUNT, AUTOMATED 90 10^3/uL (150-450)
[2020-09-19 16:11] LABS: ALBUMIN 3.9 GM/DL (3.2-5.2); ALT/SGPT 56 U/L (12-78); BILIRUBIN,DIRECT < 0.1 MG/DL (0.0-0.2); BILIRUBIN,TOTAL 0.3 MG/DL (0.2-1.0); BLOOD UREA NITROGEN 8 MG/DL (7-18); CALCIUM LEVEL 8.7 MG/DL (8.5-10.1); CARBON DIOXIDE LEVEL 25 MEQ/L (21-32); CHLORIDE LEVEL 106 MEQ/L (98-107); CREATININE FOR GFR 0.72 MG/DL (0.70-1.30); ETHYL ALCOHOL (ETHANOL) 0.431 % (0.000-0.010); GLOMERULAR FILTRATION RATE > 60.0 (>60); GLUCOSE, FASTING 118 MG/DL (70-100); POTASSIUM SERUM 3.7 MEQ/L (3.5-5.1); SODIUM LEVEL 141 MEQ/L (136-145); TOTAL PROTEIN 8.3 GM/DL (6.4-8.2)
--- NOTE | 2020-09-19 18:19 | ECGEPIP ---
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
[2020-09-19 21:45] VITALS: BP 144/67
== END 2020-09-20 00:57 | disposition home or self-care (01) ==
LOC: M ED 14:15
DX: F10.129 Alcohol abuse with intoxication, unspecified (principal); Y90.2 Blood alcohol level of 40-59 mg/100 ml; E11.51 Type 2 diabetes mellitus with diabetic peripheral angiopathy without gangrene; I10 Essential (primary) hypertension; E78.5 Hyperlipidemia, unspecified; I73.9 Peripheral vascular disease, unspecified; K21.9 Gastro-esophageal reflux disease without esophagitis; Z79.899 Other long term (current) drug therapy; Z79.4 Long term (current) use of insulin; F17.210 Nicotine dependence, cigarettes, uncomplicated